=== PATIENT | female | born 2005 | race Caucasian/White ===

== ENCOUNTER 2025-03-28 05:58 | Day surgery (SDC) | payer OTHER, SELFPAY ==
[2025-03-28] VITALS (9 sets, daily range): BP systolic 104–131; BP diastolic 59–87; PULSE 89–111; RESP 16; TEMP 36.2–36.6; O2SAT 94–100; BMI 21.7
--- OUTSIDE RECORDS SUMMARY | 2025-03-28 06:09 | XMS RPT_ITS | CCD ---
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 Role Phone COURTNEY MORENO Unavailable Unavailable REFERRED, SELF Unavailable Unavailable LISHNEVSKI, CYNDIE Unavailable Unavailable COURTNEY MORENO Unavailable Unavailable COURTNEY MORENO Unavailable Unavailable LISHNEVSKI, CYNDIE Unavailable Unavailable [facility] Unavailable Unavailable LISHNEVSKI, CYNDIE Unavailable Unavailable COURTNEY MORENO Unavailable Unavailable Lishnevski, Cyndie Primary Care Provider [phone] Lishnsheai, Cyndie Unavailable Unavailable Unavailable Salas Zhaonah Primary Care Provider Pavel DO Nidia L Primary Care Provider Pavel Salas VALENZUELAnah Thuy Primary Care Provider Nidia Zhao Primary Care Provider Cyndie Mcdonough MD Primary Care Provider SELF Referring Unavailable PAVEL, NIDIA L Primary Care Unavailable PAVEL, NIDIA L Primary Care Unavailable ARTEMIO CHANDLER Attending Unavailable PAVEL, NIDIA L Primary Care Unavailable PAVEL, NIDIA L Referring Unavailable PAVEL, NIDIA L Primary Care Unavailable PAVEL, NIDIA L Referring Unavailable PAVEL, NIDIA L Primary Care Unavailable PAVEL, NIDIA L Referring Unavailable PAVEL, NIDIA L Primary Care Unavailable PAVEL, NIDIA L Primary Care Unavailable PAVEL, NIDIA Attending Unavailable PAVEL, NIDIA Referring Unavailable PAVEL, NIDIA Primary Care Unavailable PAVEL, NIDIA Primary Care Unavailable LILIA GARRETT Attending Unavailable PAVEL, NIDIA Referring Unavailable PAVEL, NIDIA Primary Care Unavailable INDIRA DELEON Attending Unavailable [facility] Primary Care Unavailable JAKE CLAYTON Attending Unavailable JAKE CLAYTON Referring Unavailable [facility] Care Unavailable Cyndie Mcdonough MD Primary Care Provider Nakita Vela Attending Physician [phone] Pavel VALENZUELA, Dr. Nidia Crowley Primary Care Physic lavon Pavel VALENZUELA, Dr. Nidia Crowley Referring Provider [facility] Primary Care Unavailarnoldo e Rafael Viveros Attending Unavailable [facility]erring Unavailabl e Pavel, [facility] Care Unavailabl e Nakita Frazier Attending Unavailable Allergies Allergy Classification Reported Allergen(s) Allergy Type Date of Onset Reaction(s) Facility Penicillins (antibiotic) (2 sources) Penicillins Drug Allergy 01-04-20 23 [facility] (18 sources) Penicillins; Translations: [PENICILLINS] Propensity to adverse reactions 01-04-20 23 GI Upset [facility] (4 sources) Penicillins Drug Intolerance 01-04-20 23 GI Upset [facility] (6 sources) Brompheniramine / Pseudoephedrine; Translations: [BROMPHENIRAMINE-P SEUDOEPHEDRIN] Drug Allergy 06-04-20 24 Shortness of breath [facility] Work Phone: (11 sources) Nirmatrelvir-Riton avir; Translations: [NIRMATRELVIR-TYRON NAVIR] Drug Allergy 06-04-20 24 Hives, Anaphylaxis, Swelling [facility] Work Phone: (4 sources) Penicillins Drug Intolerance 01-04-20 23 GI Upset [facility] (1 source) Brompheniramine Drug Allergy 02-22-20 25 Other [facility] Comment on above: Shaking (1 source) cefdinir Drug Allergy 02-22-20 25 Abd cramps/diarrhe a [facility] (1 source) Doxycycline Drug Allergy 02-22-20 25 Abd cramps/diarrhe a [facility] (1 source) Nortriptyline Drug Allergy 02-22-20 Other [facility] (1 source) Penicillins Propensity to adverse reactions 02-22-20 Abd cramps/diarrhe a [facility] (1 source) Ritonavir Drug Allergy 02-22-20 Other [facility] (2 sources) nirmatrelvir; Translations: [nirmatrelvir] Allergy to substance 02-22-20 Other [facility] (1 source) Brompheniramine Drug Allergy 03-27-20 [facility] Repository (1 source) cefdinir Drug Allergy 02-22-20 [facility] (1 source) Doxycycline Drug Allergy 02-22-20 [facility] (1 source) Nortriptyline Drug Allergy 02-22-20 [facility] (1 source) Penicillins Drug allergy (disorder) 03-27-20 [facility] Rep[facility] (1 source) Ritonavir Drug Allergy 03-27-20 [facility] Repository Medications Current Medications Medication Drug Class(es) Dates Sig (Normalized) Sig (Original) [id number] 200 actuat albuterol 0.09 mg/actuat metered dose inhaler (20 sources) beta2-Adrenergic Agonist Start: 02-17-2025 Start: 05-12-2022 End: 09-03-2024 take 2 puff(s) by inhalation every four hours as needed albuterol HFA (PROVENTIL HFA, VENTOLIN HFA) 90 mcg/actuation inhaler Indications: SOB (shortness of breath) Inhale 2 Puffs as instructed every 4 hours as needed. 8 g 09/03/2024 Active Start: 05-12-2022 take 1-2 puff(s) by mouth every six hours albuterol 108 (90 Base) MCG/ACT inhaler inhale 1 to 2 puffs by mouth and INTO THE LUNGS every 6 hours if ... (REFER TO PRESCRIPTION NOTES). 05/12/2022 Active amitriptyline hydrochloride 50 mg oral tablet (20 sources) Tricyclic Antidepressant Start: 04-25-2022 take 1 tablet by mouth once daily amitriptyline (Elavil) 50 MG tablet Take 50 mg by mouth Nightly. 04/25/2022 Active Start: 01-15-2022 End: 06-21-2022 take 1 tablet by mouth once daily amitriptyline (Elavil) 25 MG tablet Take 25 mg by mouth Nightly. 0 01/15/2022 06/21/2022 Discontinued (Dose adjustment) amoxicillin 875 mg / clavulanate 125 mg oral tablet (2 sources) Penicillin-class Antibacterial Start: 02-04-2025 End: 02-11-2025 take 1 tablet by mouth twice daily amoxicillin-clavulanate (Augmentin) 875-125 mg tablet Indications: Acute non-recurrent pansinusitis Take 1 tablet (875 mg of amoxicillin) by mouth 2 times a day for 7 days. 14 tablet 02/04/2025 02/11/2025 Active Start: 06-09-2019 take 1 tablet by neptali th twice daily after mealtime Amoxicillin-Pot Clavulanate 875-125 MG Oral Tablet TAKE 1 TABLET TWICE DAILY AFTER MEALS Quantity: 20 Refills: 0 Ordered: 09-Jun-2019 Morgan Lee MD Start : 09-Jun-2019 Active azelastine hydrochloride 0.137 mg/actuat metered dose nasal spray (4 sources) Histamine-1 Receptor Antagonist Start: 09-23-2024 End: 09-23-2025 take 2 spray(s) nasal route twice daily azelastine (Astelin) 0.1 % nasal spray Administer 2 sprays into each nostril 2 times daily. Use in each nostril as directed 30 mL 11 09/23/2024 09/23/2025 Active azithromycin 250 mg oral tablet (4 sources) Macrolide Antimicrobial Start: 06-04-2024 End: 06-04-2024 azithromycin (Zithromax) 250 mg tablet Indications: Mild intermittent asthma with exacerbation ([facility]) , Bronchitis Take 2 tabs (500 mg) by mouth today, than 1 daily for 4 days. 6 tablet 06/04/2024 Active benzonatate 200 mg oral capsule (2 sources) Non-narcotic Antitussive Start: 06-04-2024 End: 06-11-2024 take 1 capsule by mouth three times daily as needed for cough benzonatate (Tessalon) 200 mg capsule Indications: Bronchitis Take 1 capsule (200 mg) by mouth 3 times a day as needed for cough for up to 7 days. Do not crush or chew. 21 capsule 06/04/2024 06/11/2024 Active cephalexin 250 mg oral capsule (2 sources) Cephalosporin Antibacterial Start: 02-21-2025 take 1 capsule by mouth twice daily Start: 02-17-2025 End: 02-22-2025 take 1 capsule by mouth twice daily cephalexin (Keflex) 500 mg capsule Indications: Paronychia of right little finger Take 1 capsule (500 mg) by mouth 2 times a day for 5 days. 10 capsule 02/17/2025 02/22/2025 dicyclomine hydrochloride 10 mg oral capsule (12 sources) Anticholinergic Start: 02-17-2025 take 1 capsule by mouth three times daily take 2 capsules by m outh three times daily dicyclomine (Bentyl) 10 mg capsule Take 2 capsules by mouth 3 times a day. Active take 1 capsule by mouth four alonso es daily dicyclomine (Bentyl) 10 MG capsule Take 10 mg by mouth 4 times daily. Active 21 day ethinyl estradiol 0.0 32608 mg/hr / etonogestrel 0.005 mg/hr vaginal system (20 sources) Progestin, Estrogen Start: 02-17-2025 Start: 11-15-2024 End: 12-16-2024 etonogestrel-ethinyl estradi ol (EluRyng) 0.12-0.015 MG/24HR vaginal ring INSERT ONE RING VAGINALLY AND LEAVE IN PLACE FOR 3 WEEKS, IMMEDIATELY REPLACE WITH ANOTHER RING TO SKIP PERIODS 3 Ring 5 12/16/2024 Active Start: 11-08-2023 EluRyng 0.12-0 .015 mg/24 hr vaginal ring INSERT ONE RING VAGINALLY AND LEAVE IN PLACE FOR 3 WEEKS, THEN REMOVE FOR ONE WEEK 11/08/2023 Active Start: 09-12-2023 End: 11-15-2024 etonogestrel-ethinyl estradi ol (EnilloRing) 0.12-0.015 MG/24HR vaginal ring Insert vaginally and leave in place for 3 consecutive weeks, then remove for 1 week. 3 Ring 4 11/08/2023 11/15/2024 Discontinued Start: 09-09-2022 End: 09-12-2023 etonogestrel-ethinyl estradi ol (NuvaRing) 0.12-0.015 MG/24HR vaginal ring Indications: control counseling Insert 1 Ring into the vagina See administration instructions. Insert vaginally and leave in place for 3 consecutive weeks, then remove for 1 week. 3 Ring 4 09/09/2022 09/12/2023 Discontinued Ethinyl Estradiol / Ferrous fumarate / Norethindrone (1 source) Estrogen Start: 11-04-2019 take 1 tablet by mouth once daily LO LOESTRIN FE 1 MG-10 MCG / 10 MCG tablet take 1 tablet by mouth once daily 28 tablet 3 11/04/2019 Active famotidine 40 mg oral tablet (20 sources) Histamine-2 Receptor Antagonist Start: 04-16-2021 End: 09-03-2024 famotidine (Pepcid) 40 MG tablet Take 1 tablet by mouth as needed. 01/15/2022 Active Comment on above: Take 40 mg by mouth daily at bedtime. fluticasone propionate 0.05 mg/actuat metered dose nasal spray (4 sources) Corticosteroid Start: 09-23-2024 End: 09-23-2025 take 2 spray(s) nasal route once daily fluticasone (Flonase) 50 MCG/ACT nasal spray Administer 2 sprays into each nostril daily. Shake gently. Before first use, prime pump. After use, clean tip and replace cap. 16 g 11 09/23/2024 09/23/2025 Active hydrOXYzine hydrochloride 25 mg oral tablet (8 sources) Antihistamine Start: 07-05-2024 hydrOXYzine HCl (ATARAX) 25 mg tablet 07/05/2024 Active hydrOXYzine HCl (Atarax) 10 MG tablet Take by mouth. Active Inulin (1 source) Start: 02-17-2025 lidocaine 0.05 mg/mg topical ointment (20 sources) Antiarrhythmic, Amide Local Anesthetic Start: 06-21-2022 End: 01-03-2023 lidocaine (Xylocaine) 5 % ointment Indications: Vulvodynia Apply to just outside vaginal opening at bedtime x 6 weeks 30 g 01/03/2023 Active montelukast 10 mg oral tablet (20 sources) Leukotriene Receptor Antagonist Start: 02-04-2020 End: 09-03-2024 take 1 tablet by mouth every twenty-four hours as needed montelukast (Singulair) 10 MG tablet Take 10 mg by mouth Daily as needed. 01/08/2022 Active Start: 11-13-2019 take 1 tablet by neptali th once daily montelukast (SINGULAIR) 10 MG tablet Take 1 tablet by mouth daily 30 tablet 3 11/13/2019 Active Comment on above: Take 10 mg by mouth once daily. mupirocin 0.02 mg/mg topical ointment (1 source) RNA Synthetase Inhibitor Antibacterial Start: 02-18-20 End: 02-28-20 mupirocin (Bactroban) 2 % ointment Indications: Paronychia of right little finger Apply topically 3 times a day for 10 days. 22 g 02/17/2025 02/27/2025 Active naproxen 500 mg oral tablet (9 sources) Nonsteroidal Anti-inflammatory Drug take 1 tablet by mouth in the morning naproxen (Naprosyn) 500 MG tablet Take 500 mg by mouth in the morning and 500 mg in the evening. Take with meals. Active omeprazole 20 mg delayed release oral capsule (8 sources) Proton Pump Inhibitor Start: 09-03-19 take 1 capsule by mouth once daily at breakfast omeprazole (PriLOSEC) [address] capsule TAKE 1 CAPSULE BY MOUTH 1/2 TO 1 HOUR BEFORE MORNING MEAL ONCE A DAY 01/15/2025 Active pantoprazole 40 mg delayed release oral tablet (1 source) Proton Pump Inhibitor Start: 02-22-20 take 1 tablet by mouth once daily predniSONE 20 mg oral tablet (1 source) Start: 09-04-19 End: 09-09-19 take 1 tablet by mouth once daily predniSONE (DELTASONE) 20 mg tablet Indications: SOB (shortness of breath) Take 1 tablet by mouth once daily for 5 days. 5 tablet 09/03/2024 09/08/2024 Active Risankizumab-Rzaa (1 source) Start: 02-18-20 Risankizumab-rzaa (Skyrizi) 150 MG/ML solution prefilled syringe (4 sources) Risankizumab-rza a (Skyrizi) 150 MG/ML solution prefilled syringe Inject under the skin. Active SKYRIZI 150 mg/mL injection (4 sources) SKYRIZI 150 mg/m L injection Active Skyrizi 150 mg/mL pen injector pen (3 sources) Skyrizi 150 mg/m L pen injector pen Active tiZANidine 2 mg oral capsule (20 sources) Central alpha-2 Adrenergic Agonist Start: 02-18-20 take 1 capsule by mouth every eight hours as needed Start: 05-31-2022 take 1 tablet by neptali th every eight hours as needed for muscle spasms tiZANidine (Zanaflex) 2 mg tablet TAKE 1 TABLET ORALLY EVERY 8 HOURS NEEDED FOR MUSCLE SPASM 05/14/2024 Active Completed/Discontinued Medications Medication Drug Class(es) Dates Sig (Normalized) Sig (Original) brompheniramine maleate 0.4 mg/ml / dextromethorphan hydrobromide 2 mg/ml / pseudoephedrine hydrochloride 6 mg/ml oral solution (1 source) alpha-Adrenergic Agonist, Uncompetitive M-keajvu-J-asparta te Receptor Antagonist, Sigma-1 Agonist Start: 09-03-2024 End: 09-03-2024 take 10 mL by mouth four times daily as needed Brompheniramine-Pse udoeph-DM (BROMFED DM) 2-30-10 mg/5 mL syrup Indications: Viral upper respiratory tract infection with cough Take 10 mL by mouth four times a day as needed. 118 mL 09/03/2024 09/03/2024 Discontinued escitalopram 10 mg oral tablet (7 sources) Serotonin Reuptake Inhibitor Start: 06-09-2021 End: 09-03-2024 take 1 tablet by mouth once daily escitalopram oxalate (LEXAPRO) 10 mg tablet Take 10 mg by mouth once daily. 06/09/2021 09/03/2024 Discontinued Comment on above: Take 10 mg by mouth once daily. estradiol, bulk, powder (3 sources) Start: 09-06-2022 End: 08-14-2023 estradiol, bulk, powder Indications: Vulvodynia Estradiol 0.01% and testosterone 0.1% in methylcellulose base. Apply pea size amount to vestibule BID x 12 weeks 1 g 2 09/06/2022 08/14/2023 Discontinued (Therapy completed) Start: 09-06-2022 estradiol, bul k, powder Indications: Vulvodynia Estradiol 0.01% and testosterone 0.1% in methylcellulose base. Apply pea size amount to vestibule BID x 12 weeks 1 g 2 09/06/2022 Active Ethinyl Estradiol / Levonorgestrel (13 sources) Progestin, Estrogen, Progestin-containing Intrauterine Device Start: 06-30-2021 End: 09-03-2024 take 1 tablet by mouth once daily Levonorgestrel-Ethinyl Estrad (LESSINA) 0.1mg - 20mcg per tablet Indications: Dysmenorrhea Take 1 tablet by mouth once daily. 84 tablet 4 06/30/2021 09/03/2024 Discontinued Start: 06-30-2021 End: 08-14-2023 take 0.1-20 tablets by mouth in the morning levonorgestrel-ethinyl estradiol (Aviane , Alesse, Lessina) 0.1-20 MG-MCG tablet Indications: control counseling Take 1 tablet by mouth in the morning. 28 tablet 12 07/01/2022 08/14/2023 Discontinued (Therapy completed) Start: 06-30-2021 take 1 tablet by neptali th once daily Levonorgestrel-Ethinyl Estrad (LESSINA) 0.1mg - 20mcg per tablet Indications: Dysmenorrhea Take 1 tablet by mouth once daily. 84 tablet 4 06/30/2021 Active Comment on above: Take 1 tablet by neptali th once daily. FLUoxetine 10 mg oral tablet (1 source) Serotonin Reuptake Inhibitor Start: 01-15-2022 End: 06-21-2022 take 1 tablet by mouth once daily FLUoxetine (PROzac) 10 MG tablet Take 10 mg by mouth daily. 0 01/15/2022 06/21/2022 Discontinued (Therapy completed) Problems Active Problems Problem Classification Problem Date Documented Da te Episodic/Chronic Abdominal pain (4 sources) Epigastric pain; Translations: [Right lower quadrant pain] Onset: 4 02-21-2025 Episodic Asthma (1 source) Exacerbation of intermittent asthma; Translations: [Mild intermittent asthma with (acute) exacerbation] 06-04-2024 Chronic Chronic obstructive pulmonary disease and bronchiectasis (1 source) Bronchitis; Translations: [Bronchitis, not specified as acute or chronic] 06-04-2024 Episodic Contraceptive and procreative management (4 sources) Patient encounter status; Translations: [Encounter for other general counseling and advice on contraception] 09-11-2023 Episodic Disorders of teeth and jaw (1 source) Temporomandibular joint disorder; Translations: [Unspecified temporomandibular joint disorder, unspecified side] 09-23-2024 Episodic Esophageal disorders (3 sources) Laryngopharyngeal reflux; Translations: [Gastro-esophageal reflux disease without esophagitis] 09-23-2024 Chronic Genitourinary symptoms and ill-defined conditions (3 sources) Dysuria; Translations: [Dysuria] 08-14-2023 Episodic Immunizations and screening for infectious disease (2 sources) At risk of sexually transmitted infection ; Translations: [Contact with and (suspected) exposure to infections with a predominantly sexual mode of transmission] 12-16-2024 Episodic Malaise and fatigue (1 source) Postviral fatigue syndrome; Translations: [Postviral fatigue syndrome] 02-04-2025 Chronic Other connective tissue disease (4 sources) Pelvic floor dysfunction; Translations: [Other specified disorders of muscle] 01-03-2023 Episodic Other endocrine disorders (1 source) Rathke's pouch cyst; Translations: [Other disorders of pituitary gland] 07-30-2024 Chronic Other endocrine disorders (2 sources) Other disorders of pituitary gland; Translations: [Other disorders of pituitary gland (HCC)] Onset: Chronic Other female genital disorders (3 sources) Vulvodynia; Translations: [Vulvodynia, unspecified] 01-03-2023 Chronic Other female genital disorders (2 sources) Pain in female genitalia on intercourse; Translations: [Unspecified dyspareunia] 01-03-2023 Chronic Other female genital disorders (1 source) Vaginal odor; Translations: [Other specified noninflammatory disorders of vagina] 07-08-2024 Episodic Other gastrointestinal disorders (2 sources) Irritable bowel syndrome with diarrhea; Translations: [Irritable bowel syndrome with diarrhea] 02-21-2025 Chronic Other inflammatory condition of skin (3 sources) Psoriasis vulgaris; Translations: [Psoriasis vulgaris] Onset: 5 12-23-2023 Chronic Other inflammatory condition of skin (1 source) Psoriasis vulgaris; Translations: [Psoriasis vulgaris] Onset: Chronic Other lower respiratory disease (1 source) Dyspnea; Translations: [Shortness of breath] 09-03-2024 Episodic Other screening for suspected conditions (not mental disorders or infectious disease) (3 sources) Cancer cervix screening status; Translations: [Encounter for screening for malignant neoplasm of cervix] Onset: 5 12-16-2024 Episodic Other upper respiratory disease (2 sources) Allergic rhinitis; Translations: [Allergic rhinitis, unspecified] 09-23-2024 Chronic Other upper respiratory disease (1 source) Deviated nasal septum; Translations: [Deviated nasal septum] 09-23-2024 Episodic Other upper respiratory disease (1 source) Hypertrophy of nasal turbinates; Translations: [Hypertrophy of nasal turbinates] 09-23-2024 Episodic Other upper respiratory disease (1 source) Congestion of nasal sinus; Translations: [Nasal congestion] 02-04-2025 Episodic Other upper respiratory infections (4 sources) Sore throat symptom; Translations: [Acute pharyngitis] 09-03-2024 Episodic Otitis media and related conditions (3 sources) Acute left otitis media; Translations: [Unspecified otitis media] 09-23-2024 Episodic Residual codes; unclassified (1 source) Viral syndrome; Translations: [Other general symptoms and signs] 06-04-2024 Episodic Skin and subcutaneous tissue infections (1 source) Onychia of finger; Translations: [Cellulitis of right finger] 02-17-2025 Episodic Unclassified (1 source) [place] Onset: 5 Unclassified (2 sources) New Patient; Translations: [New Patient] Onset: 5 Urinary tract infections (1 source) Chronic interstitial cystitis; Translations: [Interstitial cystitis (chronic) without hematuria] 08-14-2023 Chronic Urinary tract infections (1 source) Urinary tract infectious disease Onset: 5 Episodic Viral infection (1 source) Disease caused by 2019-nCoV; Translations: [COVID-19] 02-04-2025 Episodic Past or Other Problems Problem Classification Problem Date Documented Da te Episodic/Chronic Inflammatory diseases of female pelvic organs (1 source) Chronic vaginitis; Translations: [Subacute and chronic vaginitis] Episodic Other acquired deformities (2 sources) Spondylolysis, lumbosacral region; Translations: [Acquired spondylolisthesis] Onset: 11-10-2023 11-10-2023 Episodic Other female genital disorders (1 source) Vaginal discharge; Translations: [Other specified noninflammatory disorders of vagina] Episodic Other gastrointestinal disorders (1 source) Diarrhea, unspecified; Translations: [Diarrhea, unspecified type] Onset: 03-11-2024 Episodic Other nervous system disorders (1 source) Tremor, unspecified; Translations: [Tremor, unspecified] Onset: 06-30-2024 Episodic Ovarian cyst (2 sources) Cyst of right ovary; Translations: [Unspecified ovarian cyst, right side] Onset: 03-11-2024 11-08-2023 Episodic Results Test Name Value Interpretation Reference Range Facility Gastroenterology Visit Repor ton 02-21-2025 Gastroenterology Visit Report [facility] [address] [place] [address] OFFICE VISIT Date of Service: 02/21/25 MR#: [id number] Acct: [id number] Name: LUL SANTIAGO Rep #: [id number] : 2005 Provider: CODI Bartlett Age/Sex: 19/F Location: [facility] [place].[facility] Status: Signed Intake Intake Visit Reasons: Epigastric pain/Acid Refllux Chief Complaint: GERD Filter Helper Required: No Accompanied by: Self Is patient in pain?: No Allergies nirmatrelvir (From Paxlovid) Allergy (Intermediate, Verified 02/21/25 14:19) Other ritonavir (From Paxlovid) Allergy (Intermediate, Verified 02/21/25 14:19) Other brompheniramine Adverse Reaction (Mild, Verified 02/21/25 14:19) Other cefdinir Adverse Reaction (Mild, Verified 02/21/25 14:19) Abd cramps/diarrhea doxycycline Adverse Reaction (Mild, Verified 02/21/25 14:19) Abd cramps/diarrhea nortriptyline Adverse Reaction (Mild, Verified 02/21/25 14:19) Other Penicillins (PCN) Adverse Reaction (Mild, Verified 02/21/25 14:19) Abd cramps/diarrhea Medications ???Medication ???Instructions ???Recorded ???Confirmed ???Type albuterol sulfate 90 mcg/actuation 2 puff inhalation Q4-6H PRN 02/0302/17/25 History aerosol inhaler dicyclomine 10 mg capsule 10 mg PO TID 02/17/25 02/17/25 His tory etonogestrel 0.12 mg-ethinyl 1 vag ring vaginal Q4W 02/17/25 History estradiol 0.015 mg/24 hr vaginal ring (NuvaRing) inulin 1.7 gram chewable tablet g PO 02/17/25 02/17/25 History (Fiber Gummies) risankizumab-rzaa 150 mg/mL 150 mg subcut Q12W 02/17/25 History subcutaneous pen injector (Skyrizi) tizanidine 2 mg capsule 2 mg PO Q8H PRN 02/17/25 02/17/25 History cephalexin 250 mg capsule 250 mg PO BID 02/21/25 02/21/25 Hi story pantoprazole 40 mg tablet,delayed 40 mg PO QDAY #30 tabs 02/21/25 0 02/21/25 Rx release PFSH Medical History (Updated 02/21/25 @ 14:17 by Brandi Oliveira) Anxiety Psoriasis Vitamin deficiency Irritable bowel syndrome (IBS) Hormone deficiency Hives Hx of migraine headaches Gastrointestinal problem UTI (urinary tract infection) Bone fracture Back problem Arthritis Seasonal allergies Abnormal pituitary luteinizing hormone (LH) Irritable bowel syndrome with diarrhea Asthma exacerbation Migraines GERD (gastroesophageal reflux disease) Epigastric pain Surgical History (Updated 02/21/25 @ 14:16 by Brandi Oliveira) [place] teeth extracted Family History (Updated 02/21/25 @ 13:55 by Brandi Oliveira) Father Hyperlipidemia Mother Depression Aunt Cancer of kidney Other Colon cancer Social History (Updated 02/21/25 @ 14:18 by Brandi Oliveira) Smoking Status: Never smoker alcohol intake: current details: 1-2 days a week substance use type: does not use what type of physical activity do you participate in: walking HPI HPI Chief Complaint: GERD Details: LUL SANTIAGO, is a 19 F who presents to the office today for establishment. Patient with a long history of GERD type symptoms. Patient previously seeing her PCP for management however symptoms have become refractory and she was referred to GI office. In the past she has taken famotidine just as needed but this eventually stopped working. She was then put on omeprazole which she felt made her symptoms worse so she discontinued it. She has heartburn on a consistent basis. She has nausea but does not vomit. She has noticed that greasy and spicy foods can cause worse symptoms. Patient also feels difficulty swallowing with certain food textures like peanut butter. She will have to drink a lot of water to get the food down. She has some intermittent right upper quadrant abdominal pain however she had a right upper quadrant ultrasound which was normal. She has a history of IBS and will have constipation on occasion. At 1 point she was having blood in her stool stool fit test was ordered which was negative. She denies any diarrhea, constipation or blood in her stool at this time. ROS Const Constitutional: Positive for fatigue and headache(s); No fever(s) or weight change ENT ENT: Positive for headache(s) and difficulty swallowing Gastro GI: Positive for abdominal pain, bloating, heartburn, difficulty swallowing and nausea/dyspepsia; No belching, change in bowel habits, change in stool character, coffee ground emesis, constipation, cramping, diarrhea, feeling full early, excessive flatus, incontinent of stools, Vomiting blood/hematemesis, Blood in stool, loose stools, Black,tarry stools, pain with swallowing, vomiting or other Musc Musculoskeletal: Positive for joint pain, back pain, muscle cramps, stiffness and Arthritis Skin Skin: No yellowing of the eye or itchy eyes Neuro Neurology: Positive for headache(s) and tremor(s) Psych Psychiatric: Positive for anxiety and No (more content not included)... 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 pyogenes DNA CONCEPCION+probe Ql (Throat) Negative Negative [facility] Work Phone: [facility] Work Phone: SARS-CoV-2 (COVID-19) Ag IA. rapid Ql (Resp)on 02-04-2025 Interpretation and review of laboratory results Abnormal [facility] Work Phone: [facility] Work Phone: Office Visiton 12-16-2024 Follow-up visit [id number] Ramone Santiago 2005 F Date Provider Department Center 12/16/2024 [id number] DELEON [facility] Family History Problem Relation Age of Onset Kidney cancer Father's Sister Cancer Father's Sister High Blood Pressure Paternal Grandmother Heart disease Paternal Grandmother Anesthesia problems Mother Family Status - Relation Status Age at Father's Sister Alive Paternal Grandmother Mother Alive Sister Alive Father Alive Level of Service:51736 [place] INITIAL PREVENTIVE MEDICINE NEW PT AGE 18-39YRS Reason for Visit and Comments: Gynecologic Exam [50] - Annual exam Normal [facility] Progress Noteon 12-16-2024 Progress Note Lul Sanitago 12/16/2024 19 y.o. Primary Care Physician: Nidia Zhao Chief Complaint Patient presents with Gynecologic Exam Annual exam HPI : Lul Santiago is a 19 y.o. female here for annual exam. Gynecologic History: Patient's last menstrual period was 12/09/2024 (exact date). Menses: regular Dysmenorrhea: yes, improved with nuvaring Sexually Active: yes STD History: no, desires screening Contraception: NuvaRing vaginal inserts Preventative Health Testing: Last Pap Smear: n/a Abnormal Pap Smear History: n/a Family history of breast, ovarian, uterine, colon cancer: no OB History Para Term AB Living 0 0 0 0 0 0 SAB IAB Ectopic Multiple Live Births 0 0 0 0 0 Past Medical History: Diagnosis Date Allergic Allergic rhinitis Anxiety Asthma Fracture lumbar vertebra-closed (HCC) Fracture of distal phalanx of finger, closed Pinky finger Fracture of lower leg, closed x2 Interstitial cystitis Migraine Vitamin D deficiency Past Surgical History: Procedure Laterality Date WISDOM TOOTH EXTRACTION Bilateral Family History Problem Relation Name Age of Onset Kidney cancer Father's Sister Kidney Cancer Cancer Father's Sister Kidney Cancer High Blood Pressure Paternal Grandmother Heart disease Paternal Grandmother Anesthesia problems Mother Nausea Social History Socioeconomic History Marital status: Single Spouse name: Not on file Number of children: Not on file Years of education: Not on file Highest education level: Not on file Occupational History Not on file Tobacco Use Smoking status: Never Smokeless tobacco: Never Substance and Sexual Activity Alcohol use: No Drug use: No Sexual activity: Yes Partners: Male control/protection: Ring, Other Comment: Condom Other Topics Concern Not on file Social History Narrative Not on file Social Drivers of Health Financial Resource Strain: Not on file Food Insecurity: Not on file Transportation Needs: Not on file Physical Activity: Not on file Stress: Not on file Social Connections: Not on file Intimate Partner Violence: Not on file Housing Stability: Not on file MEDICATIONS: Current Outpatient Medications Medication Sig Dispense Refill albuterol 108 (90 Base) MCG/ACT inhaler inhale 1 to 2 puffs by mouth and INTO THE LUNGS every 6 hours if ... (REFER TO PRESCRIPTION NOTES). dicyclomine (Bentyl) 10 MG capsule Take 10 mg by mouth 4 times daily. fluticasone (Flonase) 50 MCG/ACT nasal spray Administer 2 sprays into each nostril daily. Shake gently. Before first use, prime pump. After use, clean tip and replace cap. 16 g 11 hydrOXYzine HCl (Atarax) 10 MG tablet Take by mouth. omeprazole (PriLOSEC) [address] capsule Take 20 mg by mouth every morning (before breakfast). Do not crush or chew. Risankizumab-rzaa (Skyrizi) 150 MG/ML solution prefilled syringe Inject under the skin. tiZANidine (Zanaflex) 2 MG tablet Take 1 tablet by mouth as needed. amitriptyline (Elavil) 50 MG tablet Take 50 mg by mouth Nightly. (Patient not taking: Reported on 09/23/2024) azelastine (Astelin) 0.1 % nasal spray Administer 2 sprays into each nostril 2 times daily. Use in each nostril as directed 30 mL 11 etonogestrel-ethinyl estradiol (EluRyng) 0.12-0.015 MG/24HR vaginal ring INSERT ONE RING VAGINALLY AND LEAVE IN PLACE FOR 3 WEEKS, IMMEDIATELY REPLACE WITH ANOTHER RING TO SKIP PERIODS 3 Ring 5 famotidine (Pepcid) 40 MG tablet Take 1 tablet by mouth as needed. (Patient not taking: Reported on 09/23/2024) lidocaine (Xylocaine) 5 % ointment Apply to just outside vaginal opening at bedtime x 6 weeks (Patient not taking: Reported on 09/23/2024) 30 g 0 montelukast (Singulair) 10 MG tablet Take 10 mg by mouth Daily as needed. (Patient not taking: Reported on 09/23/2024) naproxen (Naprosyn) 500 MG tablet Take 500 mg by mouth in the morning and 500 mg in the evening. Take with meals. (Patient not taking: Reported on 09/23/2024) No current facility-administered medications for this visit. ALLERGIES: Allergies as of 12/16/2024 - Reviewed 12/16/2024 Allergen Reaction Noted Paxlovid [nirmatrelvir-ritonavir ] Anaphylaxis 09/23/2024 Pcn [penicillins] 01/03/2023 REVIEW OF SYSTEMS: CONSTIUTIONAL: No weight change or fatigue CV: No Chest Pain with Exertion, Palpitations, Syncope, Edema, Arrhythmia RESPIRATORY: No SOB or Cough, BREAST: No breast abnormalities or lumps GI: No Indigestion, Heartburn, Nausea, vomiting, Diarrhea, Constipation,Bloating or Bowel Changes; No Bloody Stools or melena : No Dysuria, Hematuria or Nocturia. No Urinary Incontinence or Vaginal Discharge,vaginal bleeding, or dysparuenia. NEURO: No Migraines,, Seizure Hx, or Limb Weakness DERM: No Rash, Itching, Mole Changes or Cancer PSYCH: No Depression, Homicidal thoughts,suicidal thoughts, or anxiety MUSCULOSKELETAL: (more content not included)... Normal [facility] Progress Note Cage Cashier was offere d to the patient for exam. 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 Normal [facility] US ABDOMEN LTDon 11-15-2024 US ABDOMEN LTD * * *Final Report* * * DATE OF EXAM: Nov 15 2024 7:15AM MICKY 1064 - US ABDOMEN LTD / PROCEDURE REASON: r10.13 epigastric pain * * * * Physician Interpretation * * * * EXAMINATION: RIGHT UPPER QUADRANT ULTRASOUND CLINICAL HISTORY: r10.13 epigastric pain TECHNIQUE: Sonography of the right upper quadrant was performed. Images were obtained and stored in a permanent archive. MQ: [id number] COMPARISON: 03/11/2024 enhanced A/P CT RESULT: Pancreas: Normal sonographic appearance. Portions obscured: tail Liver: Echotexture: Normal, homogeneous. Echogenicity: Normal Surface contour: Smooth Lesions: None. Other: Main portal vein is patent and demonstrates appropriate hepatopedal blood flow. Biliary: No intrahepatic biliary duct dilation. CBD: 0.3 at the hilum. Gallbladder: Normal caliber -Contents: No cholelithiasis -Wall: Normal -Other: No pericholecystic fluid. No sonographic Moore's sign. Right Kidney: No hydronephrosis. Ascites: None. IMPRESSION: Normal sonographic appearance of the right upper quadrant. Safety Physician: DEBORAH Transcribe Date/Time: Nov 18 2024 10:14A Dictated by : SHILOH GARVEY MD This examination was interpreted and the report reviewed and electronically signed by: SHILOH GARVEY MD on Nov 18 2024 10:16AM EST [id number] [facility] Office Visiton 09-23-2024 Follow-up visit [id number] Ramone Santiago 2005 F Date Provider Department Center 09/23/2024 LILIA MOLINA [facility] None Family History Problem Relation Age of Onset Kidney cancer Father's Sister Cancer Father's Sister High Blood Pressure Paternal Grandmother Heart disease Paternal Grandmother Anesthesia problems Mother Family Status - Relation Status Age at Father's Sister Alive Paternal Grandmother Mother Alive Sister Alive Father Alive Level of Service:50205 [place] OFFICE/OUTPATIENT NEW MODERATE MDM 45 MINUTES Reason for Visit and Comments: New Patient [542] - New patient for allergies, stuffy sinus with difficulty breathing at night and can not use sedating antihistamine with work, muffled right hearing with fluid per PCP, TMJ left side jaw and 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 eustachian tube dysfunction -I counseled the patient on findings we will start Flonase Astelin auto Valsalva to help with her eustachian tube dysfunction allergic rhinitis will also add the patient for allergy testing she was interested in this -In regards to her LPR she is scheduled to see with GI continue omeprazole therapy She has some concerns regarding her hearing as well as possible further evaluation eustachian tube dysfunction will schedule 4-week follow-up with our audiology team and then follow-up with me Otolaryngology Head and Neck Surgery Clinic Note HPI: Lul Santiago is a 19 y.o. yo female who presents to clinic today for evaluation of several ear nose and throat complaints. Patient states has been ongoing for quite some time she states that she has nasal congestion as well as facial pain and pressure in fullness in the right ear. She states that she may have allergies she has been off Flonase intermittently without any benefit no prior history of any nasal related surgery she gets about 1 sinus infection per year she denies any trauma to the nose she has tried [id number] allergy medication but unable to tolerate it she is battling really bad acid reflux currently she has been switching her omeprazole therapy from famotidine and has not quite been improving as she does note globus sensation frequent throat clearing and postnasal drip. She also states that she had times has been dealing with TMJ related issues been using a mouthguard but it is not staying in so she is not adequately feels like she is treating this as well mostly that bothers the left jaw her right ear fullness is typically restrictive the right no other concerns at this time no prior history of any head neck surgery. PMH: Past Medical History: Diagnosis Date Allergic Allergic rhinitis Anxiety Asthma Fracture lumbar vertebra-closed (HCC) Fracture of distal phalanx of finger, closed Pinky finger Fracture of lower leg, closed x2 Interstitial cystitis Migraine Vitamin D deficiency Allergies: Allergies Allergen Reactions Paxlovid [Nirmatrelvir-Ritonavir ] Anaphylaxis Pcn [Penicillins] Medications: Current Outpatient Medications: albuterol 108 (90 Base) MCG/ACT inhaler, inhale 1 to 2 puffs by mouth and INTO THE LUNGS every 6 hours if ... (REFER TO PRESCRIPTION NOTES)., Disp: , Rfl: etonogestrel-ethinyl estradiol (EnilloRing) 0.12-0.015 MG/24HR vaginal ring, Insert vaginally and leave in place for 3 consecutive weeks, then remove for 1 week., Disp: 3 Ring, Rfl: 4 tiZANidine (Zanaflex) 2 MG tablet, Take 1 tablet by mouth as needed., Disp: , Rfl: amitriptyline (Elavil) 50 MG tablet, Take 50 mg by mouth Nightly. (Patient not taking: Reported on 09/23/2024), Disp: , Rfl: dicyclomine (Bentyl) 10 MG capsule, Take 10 mg by mouth 4 times daily., Disp: , Rfl: famotidine (Pepcid) 40 MG tablet, Take 1 tablet by mouth as needed. (Patient not taking: Reported on 09/23/2024), Disp: , Rfl: hydrOXYzine HCl (Atarax) 10 MG tablet, Take by mouth., Disp: , Rfl: lidocaine (Xylocaine) 5 % ointment, Apply to just outside vaginal opening at bedtime x 6 weeks (Patient not taking: Reported on 09/23/2024), Disp: 30 g, Rfl: 0 montelukast (Singulair) 10 MG tablet, Take 10 mg by mouth Daily as needed. (Patient not taking: Reported on 09/23/2024), Disp: , Rfl: naproxen (Naprosyn) 500 MG tablet, Take 500 mg by mouth in the morning and 500 mg in the evening. Take with meals. (Patient not taking: Reported on 09/23/2024), Disp: , Rfl: omeprazole (PriLOSEC) [address] capsule, Take 20 mg by mouth every morning (before breakfast). Do not crush or chew., Disp: , Rfl: Risankizumab-rzaa (Skyrizi) 150 MG/ML solution prefilled syringe, Inject under the skin., Disp: , Rfl: PSH: Past Surgical History: Procedure Laterality Date WISDOM TOOTH EXTRACTION Bilateral FH: Family History Problem Relation Name Age of Onset Kidney cancer Father's Sister Kidney Cancer Cancer Father's Sister Kidney Cancer High Blood Pressure Paternal Grandmother Heart disease Paternal Grandmother Anesthesia problems Mother Nausea SH: Social History Socioeconomic History Marital status: Single Spouse name: Not on file Number of children: Not on file Years of education: Not on file Highest education level: Not on file Occupational History Not on file Tobacco Use Smoking status: Never Smokeless tobacco: Never Substance and Sexual Activity Alcohol use: No Drug use: No Sexual activity: Yes Partners: Male control/protection: Ring, Other Comment: Condom Other Topics Concern Not on file Social History Narrative Not on file Social Drivers of Health Financial Resource St (more content not included)... [facility] Visit (IGGYWA ) LUL SANTIAGO ([id number]) 1 F Date Time Provider Department 09/03/24 6:10 PM NANCY MCNAMARA During your visit today, we recorded the following information about you: Temperature Pulse Respiration Blood pressure 99.4 degrees 103/minute 16/minute 128/79 Weight 56.1 kg Nancy Mcnamara APRN.BILINGUAL MANAGER 09/03/2024 6:26 PM Addendum (J06.9) Viral upper respiratory tract infection with cough (primary encounter diagnosis) Plan: Brompheniramine-Pseudoe ph-DM (BROMFED DM) 2-30-10 mg/5 mL syrup (R06.02) SOB (shortness of breath) Plan: albuterol HFA (PROVENTIL HFA, VENTOLIN HFA) 90 mcg/actuation inhaler Education on viral vs bacterial infections. Most viral infections will last 2-3 weeks ago. It is possible to have back to back viral infections. An antibiotic will not treat a virus. -Will offer strep and viral testing. -Albuterol for shortness of breath/wheezing. Bromfed for cough/congestion. Prednisone with food. -Drink lots of fluids and get plenty of rest. -Vaporizers, cool mist humidifiers, warm showers, and warm fluids help open respiratory and sinus passages. Clean humidifiers daily. -OTC tylenol as directed on the bottle. -Saline nasal spray as needed. Flonase twice daily can help reduce inflammation through the sinus cavities. -Cough/deep breathing education, promote clearing of the airways and good lung expansion. -Make follow up with primary care for monitoring and resolution in symptoms. -Signs that warrant an ER evaluation: Sudden change/worsening in condition, lethargy, signs of dehydration, fever greater than 102 F that is not responding to Tylenol or ibuprofen (Motrin, Advil), drooling, difficulty swallowing, difficulty breathing, shortness of breath, chest pain, evidence of airway compromise (tripod position, neck extension, retractions), seizures, changes in mental status, or other concerns. Nancy Mcnamara APRN.BILINGUAL MANAGER 09/03/2024 6:33 PM Signed [facility] Subjective Lul Santiago is a 19 year old female. Patient presents with: Sinus Problem: Chest congestion, sneezing, sob started a week ago HPI by patient: Lul Santiago is a 19 year old presenting to the office with the complaint of viral symptoms. Started approximately 1 week ago. Associated symptoms include sore throat from indigestion, cough from indigestion, and fatigue. Has shortness of breath. Denies fever, ear pain, headache, fever, and body aches. Covid Immunization Dates Current Care Gaps Covid-19 Vaccine ( season) Overdue since 02/04/2024 09/30/2020 Imm Admin: COVID-19 original vaccine, age 12+ yr, monovalent ([employer] - [facility]) 09/08/2020 Imm Admin: COVID-19 original vaccine, age 12+ yr, monovalent ([employer] - [employer]) Sick contacts: yes, her boyfriend. Smoking history/second hand smoke: none. OTC not helping. No antibiotic use in the last 60 days. ALLERGIES Penicillins GI Upset Family History Reviewed Including Cardiac Diseases, Psychiatric Diseases, AND Substance Abuse Problem: other (Polyps benign) Relation: Mother Age of Onset: (Not Specified) Problem: Breast Cancer Relation: Maternal great-grandmother Age of Onset: 62 Social History Tobacco Use Smoking status: Never Smokeless tobacco: Never Alcohol use: Never Drug use: Never Active Ambulatory Problems No Active Ambulatory Problems Resolved Ambulatory Problems No Resolved Ambulatory Problems Past Medical History: No date: Asthma No date: GERD (gastroesophageal reflux disease) Review of Systems Constitutional: Positive for fatigue. Negative for fever. HENT: Positive for congestion and sore throat. Eyes: Negative. Respiratory: Positive for cough. Cardiovascular: Negative. Gastrointestinal: Negative. Endocrine: Negative. Genitourinary: Negative. Musculoskeletal: Negative. Skin: Negative. Neurological: Negative. Hematological: Negative. Objective BP 128/79 Pulse 103 Temp 37.4 ?C (99.4 ?F) Resp 16 Wt 56.1 kg (123 lb 9.1 oz) LMP 12/23/2022 SpO2 97% Physical Exam Vitals reviewed. Constitutional: General: She is not in acute distress. Appearance: She is not ill-appearing, toxic-appearing or diaphoretic. HENT: Head: Normocephalic and atraumatic. Right Ear: Tympanic membrane, ear canal and external ear normal. Left Ear: Tympanic membrane, ear canal and external ear normal. Nose: Nose normal. Right Sinus: No maxillary sinus tenderness or frontal sinus tenderness. Left Sinus: No maxillary sinus tenderness or frontal sinus tenderness. Mouth/Throat: Mouth: Mucous membranes are moist. Pharynx: Oropharynx is clear. No oropharyngeal exudate or posterior oropharyngeal erythema. Cardiovascular: Rate and Rhythm: Regular rhythm. Tachycardia present. Pulmonary: Effort: Pulmonary effort is normal. Breath sounds: Normal breath susie (more content not included)... Normal [facility] MR Pituitary and Sella turci ca WO and W contrast Awilda 08-16-2024 IMPRESSION: No evidence of a sellar or suprasellar lesion. Safety Physician: DEBORAH Transcribe Date/Time: Aug 16 2024 4:51P Dictated by : ANTONY MCDANIELS MD This examination was interpreted and the report reviewed and electronically signed by: ANTONY MCDANIELS MD on Aug 16 2024 4:54PM [facility] * * *Final Report* * * DATE OF EXAM: Aug 16 2024 4:33PM [facility] 0314 - MRI PITUITARY WO/W IVCON / PROCEDURE REASON: pituitary mass * * * * Physician Interpretation * * * * EXAMINATION: MRI PITUITARY WO/W IVCON CLINICAL HISTORY: Concern for pituitary lesion TECHNIQUE: High resolution sagittal and coronal T1, coronal T2, and gadolinium enhanced, fat-suppressed sagittal and coronal T1-weighted images of the pituitary region. Contrast: 2.5 mL Elucirem IV COMPARISON: MRI brain 06/30/2024 RESULT: Postop Changes: None Adenohypophysis: The pituitary gland is within normal limits of size and configuration for age. The adenohypophysis is uniformly hypointense on T1 and T2 and uniformly enhances following gadolinium administration. No evidence of an underlying mass. Neurohypophysis: The posterior pituitary gland is present and normal in size and location. The infundibulum is intact and normal in appearance. Suprasellar Region: No evidence of a suprasellar mass. The optic apparatus is normal in appearance. Cavernous Sinuses: The cavernous sinuses are normal in appearance. A normal flow void is noted in the carotid siphons suggesting patency by spin echo criteria. Brain Parenchyma: The overlying hypothalamus is normal in appearance. The visualized parenchyma is otherwise normal in signal intensity and morphology. Skull Base: No evidence of a marrow replacement process in the underlying skull base. Mucosal thickening in the bilateral maxillary sinus floors. [facility] Provider, [facility] [place] - 08/16/2024 * * *Final Report* * * DATE OF EXAM: Aug 16 2024 4:33PM [facility] 0314 - MRI PITUITARY WO/W IVCON / PROCEDURE REASON: pituitary mass * * * * Physician Interpretation * * * * EXAMINATION: MRI PITUITARY WO/W IVCON CLINICAL HISTORY: Concern for pituitary lesion TECHNIQUE: High resolution sagittal and coronal T1, coronal T2, and gadolinium enhanced, fat-suppressed sagittal and coronal T1-weighted images of the pituitary region. Contrast: 2.5 mL Elucirem IV COMPARISON: MRI brain 06/30/2024 RESULT: Postop Changes: None Adenohypophysis: The pituitary gland is within normal limits of size and configuration for age. The adenohypophysis is uniformly hypointense on T1 and T2 and uniformly enhances following gadolinium administration. No evidence of an underlying mass. Neurohypophysis: The posterior pituitary gland is present and normal in size and location. The infundibulum is intact and normal in appearance. Suprasellar Region: No evidence of a suprasellar mass. The optic apparatus is normal in appearance. Cavernous Sinuses: The cavernous sinuses are normal in appearance. A normal flow void is noted in the carotid siphons suggesting patency by spin echo criteria. Brain Parenchyma: The overlying hypothalamus is normal in appearance. The visualized parenchyma is otherwise normal in signal intensity and morphology. Skull Base: No evidence of a marrow replacement process in the underlying skull base. Mucosal thickening in the bilateral maxillary sinus floors. IMPRESSION IMPRESSION: No evidence of a sellar or suprasellar lesion. Safety Physician: DEBORAH Transcribe Date/Time: Aug 16 2024 4:51P Dictated by : ANTONY MCDANIELS MD This examination was interpreted and the report reviewed and electronically signed by: ANTONY MCDANIELS MD on Aug 16 2024 4:54PM [facility] Radiology Study observation (narrative) [facility] MR Pituitary and Sella turci ca WO and W contrast IVOrdered By: Ccf Provider on 08-16-2024 [facility] MRI PITUITARY WO/W IVCONon 0 08-16-2024 MRI PITUITARY WO/W IVCON * * *Final Report* * * DATE OF EXAM: Aug 16 2024 4:33PM [facility] 0314 - MRI PITUITARY WO/W IVCON / PROCEDURE REASON: pituitary mass * * * * Physician Interpretation * * * * EXAMINATION: MRI PITUITARY WO/W IVCON CLINICAL HISTORY: Concern for pituitary lesion TECHNIQUE: High resolution sagittal and coronal T1, coronal T2, and gadolinium enhanced, fat-suppressed sagittal and coronal T1-weighted images of the pituitary region. Contrast: 2.5 mL Elucirem IV COMPARISON: MRI brain 06/30/2024 RESULT: Postop Changes: None Adenohypophysis: The pituitary gland is within normal limits of size and configuration for age. The adenohypophysis is uniformly hypointense on T1 and T2 and uniformly enhances following gadolinium administration. No evidence of an underlying mass. Neurohypophysis: The posterior pituitary gland is present and normal in size and location. The infundibulum is intact and normal in appearance. Suprasellar Region: No evidence of a suprasellar mass. The optic apparatus is normal in appearance. Cavernous Sinuses: The cavernous sinuses are normal in appearance. A normal flow void is noted in the carotid siphons suggesting patency by spin echo criteria. Brain Parenchyma: The overlying hypothalamus is normal in appearance. The visualized parenchyma is otherwise normal in signal intensity and morphology. Skull Base: No evidence of a marrow replacement process in the underlying skull base. Mucosal thickening in the bilateral maxillary sinus floors. IMPRESSION: No evidence of a sellar or suprasellar lesion. Safety Physician: DEBORAH Transcribe Date/Time: Aug 16 2024 4:51P Dictated by : ANTONY MCDANIELS MD This examination was interpreted and the report reviewed and electronically signed by: ANTONY MCDANIELS MD on Aug 16 2024 4:54PM EST [id number] [facility] NURSING PROGon 08-16-2024 NURSING PROG HNO ID: [id number] Author: JESSICA SAAB RN Service: Radiology Author Type: Registered Nurse Type: Nursing Progress Note Filed: 08/16/2024 16:17 Note Text: Radiology Service Progress Note DATE OF SERVICE: August 16, 2024 TIME: 4:16 PM PATIENT WEIGHT: 123LBS PATIENT IDENTITY VERIFICATION COMPLETED USING TWO (2) STANDARD IDENTIFIERS: Name and Date of confirmed by patient verbally and Name and Date of confirmed by identification band. FALL SCREENING: Has the patient had 2 falls in the last year or 1 fall with injury or currently using an Ambulatory Assistive Device (Walker, Cane, Wheelchair, Crutches, etc.)? No PATIENT GENDER DATA: Assigned female at . status: Unknown status: unknown ALLERGIES: Reviewed and unchanged CONTRAST ALLERGY: No EXAM: MRI - CONTRAST TYPE: GROUP II IV SITE: Ambulatory: A peripheral IV was started in the Right with a Angio cath: 22 gauge. IV SITE APPEARANCE: Clean,Dry and Intact SIGNATURE: Jessica Saab RN PATIENT NAME: Lul Santiago DATE: August 16, 2024 TIME: 4:16 PM Normal [facility] CORTISOL, URINE, FREEon 07-07 CORTISOL 24H URINARY FREE 34.4 ug/d Normal <=45.0 [facility] Comment on above: Performed By: #### L [id number] #### [facility] ([facility]) [address] [place] [address] [facility] CORTISOL, URINE FREE - PER VOLUME 49.10 ug/L Normal [facility] Comment on above: Performed By: #### L [id number] #### [facility] ([facility]) [address] [place] [address] [facility] CORTISOL, URINE FREE - RATIO TO BROADCAST SYSTEMS ENGINEER 24.80 ug/g BROADCAST SYSTEMS ENGINEER Normal [facility] Comment on above: Result Comment: Refe rence Interval: Cortisol ug/g histology assistant Female Prepubertal: Less than 25 ug/g histology assistant 18 years and older: Less than 24 ug/g histology assistant : Less than 59 ug/g histology assistant Male Prepubertal: Less than 25 ug/g histology assistant 18 years and older: Less than 32 ug/g histology assistant Performed By: #### L [id number] #### [facility] ([facility]) [address] [place] [address] [facility] CORTISOL, URINE INTERPRETATION See Note Normal [facility] Comment on above: Result Comment: INTE RPRETIVE INFORMATION: Cortisol Urine Free by LC-MS/MS Access complete set of age- and/or gender-specific reference intervals for this test in the [facility] Test Directory ([employer]). This test was developed and its performance characteristics determined by [facility] [facility]. It has not been cleared or approved by the [place] Food and Drug Administration. This test was performed in a CLIA certified laboratory and is intended for clinical purposes. Performed By: [facility] [facility] [address] [place] [address] [employer] Guard: Dino Vieira MD, PhD CLIA Number: [id number] Performed By: #### L [id number] #### [facility] ([facility]) [address] [place] [address] [facility] CREATININE, URINE - PER 24H 1386 mg/d Normal 700-1600 [facility] Comment on above: Performed By: #### L [id number] #### [facility] ([facility]) [address] [place] [address] [place] CREATININE, URINE - PER VOLUME 198 mg/dL Normal [facility] Comment on above: Performed By: #### L [id number] #### [facility] ([facility]) [address] [place] [address] [facility] HOURS COLLECTED 24 hr Normal [facility] Comment on above: Result Comment: Per 24h calculations are provided to aid interpretation for collections with a duration of 24 hours and an average daily urine volume. For specimens with notable deviations in collection time or volume, ratios of analytes to a corresponding urine creatinine concentration may assist in result interpretation. Performed By: #### L [id number] #### [facility] ([facility]) [address] TOTAL VOLUME 700 mL Normal [facility] Comment on above: Performed By: #### L [id number] #### [facility] ([facility]) [address] [place] [address] [place] BACTERIAL VAGINOSIS NAATon 0 07-08-2024 Lactobacillus crispatus+gasseri+je nsenii + Gardnerella vaginalis + Atopobium vaginae rRNA CONCEPCION+probe Ql (Vag fld) Not detected Normal Not detected [facility] Comment on above: Order Comment: Speci men Type: SWAB Ordering Facility: [facility] Address: [address] [place] [address] Performed By: #### C VTV, BVAMP #### [facility] CLIA [id number] [address] [place] [address] [place] Bacteria Ur Culton Bacteria identified Cx Nom (U) ORGANISM ID: 1 >=100,000 CFU/ml Normal urogenital allegra Normal [facility] Comment on above: Performed By: #### 6 30-4 #### [facility] CLIA [id number] [address] [place] [address] [place] RODRIGO/TRICHOMONAS NAATon 0 07-08-2024 C. glabrata RNA CONCEPCION+probe Ql (Vag fld) Not detected Normal Not detected [facility] Comment on above: Order Comment: Speci men Type: SWAB Ordering Facility: [facility] Address: [address] [place] [address] Performed By: #### C VTV, BVAMP #### [facility] CLIA [id number] [address] [place] [address] [place] Rodrigo sp DNA CONCEPCION+probe Ql (Vag fld) Not detected Normal Not detected [facility] Comment on above: Order Comment: Speci men Type: SWAB Ordering Facility: [facility] Address: [address] [place] [address] Result Comment: The Rodrigo species group target includes C. albicans, C. tropicalis, C. parapsilosis, and C. dubliniensis. Performed By: #### C VTV, BVAMP #### [facility] CLIA [id number] [address] [place] [address] [place] T. vaginalis DNA CONCEPCION+probe Ql (Unsp spec) Not detected Normal Not detected [facility] Comment on above: Order Comment: Speci men Type: SWAB Ordering Facility: [facility] Address: [address] [place] [address] Performed By: #### C VTV, BVAMP #### [facility] CLIA [id number] [address] [place] [address] [place] CNOVon 07-08-2024 CNOV Office Visit ([facility] ) LUL SANTIAGO ([id number]) 1 F Date Time Provider Department 07/08/24 4:15 PM JAIRO ATKINS During your visit today, we recorded the following information about you: Pulse Respiration Blood pressure Weight 115/minute 16/minute 123/71 55.8 kg Jairo Atkins PA-C 07/08/2024 5:02 PM Signed 07/08/2024 Patient presents with: Urinary Tract Infection: burning, odor - has vaginal smell, started last SUBJECTIVE: This is a 19 year old with IC that is here today for possible UTI symptoms. HPI per the patient. The patient complains of vaginal odor and dysuria. She has IC and so, it is not uncommon for her to have dysuria. She wants to r/o a UTI. She also states that with the IC she "always" has microscopic hematuria. She has a urologist. Due to the vaginal odor she is concerned for BV. She state the urine does not have abnormal odor. It is the vagina. She denies any discharge or itching/irritation. She denies fever, chills, abominal pain, lower abdominal pressure, bladder spasms, back pain, or n/v. The patient denies any discharge, lesions, odor, change in sexual partners, or concern for STIs. Dysuria pain: - out of 10 with 10 being the worst pain. The lower abdominal pain is - out of 10 with 10 being the worst pain. The back/flank pain is - out of 10 with 10 being the worst pain. Self-treatment:. none The severity is mild and the symptoms are not improving. The patient has not had similar symptoms in the last 3 months. The patient has not had an antibiotic in the last 3 months. LMP:. 2 weeks ago Reviewed meds, OTCs and supplements. Meds reviewed. Allergies and medications reviewed. Reviewed allergies, medications, social history, and past medical history. Barriers to learning: none. PAST MEDICAL HISTORY Diagnosis Date Asthma GERD (gastroesophageal reflux disease) ALLERGIES Penicillins MEDICATIONS Current Outpatient Medications Medication Sig albuterol HFA (PROVENTIL HFA, VENTOLIN HFA) 90 mcg/actuation inhaler inhale 1 to 2 puffs by mouth and INTO THE LUNGS every 4 to 6 hours if needed for cough for 5 days ELURYNG 0.12-0.015 mg/24 hr vaginal ring INSERT ONE RING VAGINALLY AND LEAVE IN PLACE FOR 3 WEEKS, THEN REMOVE FOR ONE WEEK hydrOXYzine HCl (ATARAX) 25 mg tablet SKYRIZI 150 mg/mL injection tiZANidine (ZANAFLEX) 2 mg tablet TAKE 1 TABLET ORALLY EVERY 8 HOURS NEEDED FOR MUSCLE SPASM dicyclomine (BENTYL) 10 mg capsule Take 2 capsules by mouth three times a day. famotidine (PEPCID) 40 mg tablet Take 40 mg by mouth daily at bedtime. Levonorgestrel-Ethinyl Estrad (LESSINA) 0.1mg - 20mcg per tablet Take 1 tablet by mouth once daily. (Patient not taking: Reported on 11/10/2023) escitalopram oxalate (LEXAPRO) 10 mg tablet Take 10 mg by mouth once daily. (Patient not taking: Reported on 11/10/2023) montelukast (SINGULAIR) 10 mg tablet Take 10 mg by mouth once daily. (Patient not taking: Reported on 11/10/2023) No current facility-administered medications for this visit. Medications and allergies reviewed by this provider. SOCIAL HISTORY Social History Tobacco Use Smoking status: Never Smokeless tobacco: Never Substance Use Topics Alcohol use: Never Drug use: Never REVIEW OF SYSTEMS ROS: constitutional-neg, heent-neg, heart-neg, respiratory-neg, GI-neg, -concern for UTI, vaginal odor, skin-neg, lymph-neg, neuro-neg, psych-neg- All systems neg except as noted above in HPI. OBJECTIVE: BP 123/71 Pulse 115 Resp 16 Wt 55.8 kg (123 lb 2 oz) LMP 12/23/2022 SpO2 98% . Vital signs reviewed by this provider. Physical Exam Vitals reviewed. Constitutional: General: She is not in acute distress. Appearance: Normal appearance. She is well-developed and normal weight. She is not ill-appearing, toxic-appearing or diaphoretic. Cardiovascular: Rate and Rhythm: Normal rate and regular rhythm. Heart sounds: Normal heart sounds. Pulmonary: Effort: Pulmonary effort is normal. Breath sounds: Normal breath sounds and air entry. Abdominal: General: Abdomen is flat. Bowel sounds are normal. Palpations: Abdomen is soft. Tenderness: There is no abdominal tenderness. There is no right CVA tenderness, left CVA tenderness, guarding or rebound. Neurological: Mental Status: She is alert. Psychiatric: Behavior: Behavior is cooperative. ASSESSMENT/PLAN: 1. Dysuria - ICD9: 788.1, ICD10: R30.0 (primary diagnosis) H/o IC Will wait until urine culture to treat - UA DIP, URINE (POC) She states that with the IC she "always" has microscopic hematuria. - BACTERIAL CULTURE, URINE- Urine culture sent to the lab. Will contact in 2-3 days with results. (Usually Macrobid or Bactrim) 2. Vaginal odor - ICD9: 625.8, ICD10: N89.8 - BACTERIAL VAGINOSIS NAAT- would treat with Flagyl - RODRIGO/TRICHOMONAS NAAT- would treat with Difluc (more content not included)... Normal [facility] UA DIP, URINE (POC)on 2024 BILIRUBIN UA (POCT) Negative Negative [facility] CLARITY UA (POCT) Clear [facility] COLOR UA (POCT) Yellow [facility] GLUCOSE UA (POCT) Negative Negative mg/dL [facility] Hemoglobin Ql (U) Small Abnormal Negative [facility] Interpretation and review of laboratory results Abnormal [facility] KETONE UA (POCT) Negative Negative mg/dL [facility] LEUKOCYTES UA (POCT) Small Abnormal Negative [facility] NITRITE UA (POCT) Negative Negative [facility] PH UA (POCT) 7.0 4.5 - 8.0 [facility] Protein Ql (U) Negative Negative mg/dL [facility] SPECIFIC GRAVITY UA (POCT) 1.015 1.005 - 1.030 [facility] UROBILINOGEN UA (POCT) 0.2 Normal E.U./dL [facility] Location:[facility], [address] [place] [address], [address] [place] [address] POINT OF CARE [facility] 36on 07-02-2024 36 Reason for Dispositi on [1] Follow-up call to recent contact AND [2] information only call, no triage required Protocols used: Information Only Call - No [id number] S: Pt calling [facility] after missing a call from her PCP office. B: Pt states message just said to call back. A: No message left to give patient. R: Pt will call the office when open for assistance. Normal [facility] CBC W Auto Differential pane l (Bld)on 07-01-2024 Basophils (Bld) [#/Vol] 0 10*3/uL 0.0 - 0.2 10*3/uL [facility] Basophils/100 WBC (Bld) 0.3 % 0.0 - 2.0 % [facility] Eosinophils (Bld) [#/Vol] 0.1 10*3/uL 0.0 - 0.5 10*3/uL [facility] Eosinophils/100 WBC (Bld) 1.2 % 0.0 - 6.0 % [facility] Erythrocyte distribution width (RBC) [Ratio] 13.2 % 11.5 - 15.0 % [facility] Hematocrit (Bld) [Volume fraction] 40.9 % 35.0 - 47.0 % [facility] Hemoglobin (Bld) [Mass/Vol] 13.3 g/dL 11.7 - 16.0 g/dL [facility] Immature granulocytes (Bld) [#/Vol] 0 10*3/uL NINF - 0.1 10*3/uL [facility] Immature granulocytes/100 WBC (Bld) 0.2 % 0.0 - 2.0 % [facility] Interpretation and review of laboratory results Normal [facility] Lymphocytes (Bld) [#/Vol] 3.7 10*3/uL 1.0 - 4.3 10*3/uL [facility] Lymphocytes/100 WBC (Bld) 38.9 % 15.0 - 45.0 % [facility] MCH (RBC) [Entitic mass] 28.1 pg 26.0 - 34.0 pg [facility] MCHC (RBC) [Mass/Vol] 32.5 % 30.5 - 36.0 % [facility] MCV (RBC) [Entitic vol] 86.3 fL 77.0 - 99.0 fL [facility] Monocytes (Bld) [#/Vol] 0.5 10*3/uL 0.0 - 0.9 10*3/uL [facility] Monocytes/100 WBC (Bld) 5.3 % 5.0 - 13.0 % [facility] Neutrophils (Bld) [#/Vol] 5.1 10*3/uL 1.8 - 7.5 10*3/uL [facility] Neutrophils/100 WBC (Bld) 54.1 % 38.0 - 82.0 % [facility] Nucleated RBC/100 WBC (Bld) [Ratio] 0 % [facility] Platelet mean volume (Bld) [Entitic vol] 10.2 fL 9.0 - 12.7 fL [facility] Comment on above: MPV is a calculated measurement using platelet volume ratio Platelets (Bld) [#/Vol] 277 10*3/uL 140 - 440 10*3/uL [facility] RBC (Bld) [#/Vol] 4.74 10*6/uL 3.80 - 5.2 0 10*6/uL [facility] WBC (Bld) [#/Vol] 9.5 10*3/uL 3.6 - 10.7 10*3/uL [facility] CBC WITH AUTO DIFFERENTIALon 07-01-2024 Basophils (Bld) [#/Vol] 0.0 10*3/uL Normal 0.0-0.2 [facility] Comment on above: Performed By: #### L [id number] #### Server Assistant: ANGELINA MAZARIEGOS ([phone]) [facility] HARMONEFREN [facility] ([facility]) [address] [place] [address] [place] Basophils/100 WBC (Bld) 0.3 % Normal 0.0-2.0 [facility] Comment on above: Performed By: #### L [id number] #### Server Assistant: ANGELINA MAZARIEGOS ([id number]) [facility] ([facility]) [address] [place] [address] [place] Eosinophils (Bld) [#/Vol] 0.1 10*3/uL Normal 0.0-0.5 [facility] Comment on above: Performed By: #### L [id number] #### Server Assistant: ANGELINA MAZARIEGOS ([phone]) [facility] ([facility]) [address] [place] [address] [place] Eosinophils/100 WBC (Bld) 1.2 % Normal 0.0-6.0 [facility] Comment on above: Performed By: #### L [id number] #### Server Assistant: ANGELINA MAZARIEGOS ([id number]) [facility] ([facility]) [address] [place] [address] Erythrocyte distribution width (RBC) [Ratio] 13.2 % Normal 11.5-15.0 [facility] Comment on above: Performed By: #### L [id number] #### Server Assistant: ANGELINA MAZARIEGOS ([id number]) [facility]ENTER[facility] ([facility]) [address] [place] [address] Hematocrit (Bld) [Volume fraction] 40.9 % Normal 35.0-47.0 [facility] Comment on above: Performed By: #### L [id number] #### Server Assistant: ANGELINA MAZARIEGOS ([id number]) [facility] ([facility]) [address] [place] [address] Hemoglobin (Bld) [Mass/Vol] 13.3 g/dL Normal 11.7-16.0 [facility] Comment on above: Performed By: #### L [id number] #### Server Assistant: ANGELINA MAZARIEGOS ([phone]) [facility] ([facility]) [address] [place] [address] IMMATURE GRANS % 0.2 % Normal 0.0-2.0 [facility] Comment on above: Performed By: #### L [id number] #### Server Assistant: ANGELINA MAZARIEGOS ([phone]) [facility]ENTER[facility] ([facility]) [address] [place] [address] IMMATURE GRANS ABSOLUTE 0.0 10*3/uL Normal <0.1 [facility] Comment on above: Performed By: #### L [id number] #### Server Assistant: ANGELINA MAZARIEGOS ([phone]) [facility] ([facility]) [address] [place] [address] Lymphocytes (Bld) [#/Vol] 3.7 10*3/uL Normal 1.0-4.3 [facility] Comment on above: Performed By: #### L [id number] #### Server Assistant: ANGELINA MAZARIEGOS ([id number]) [facility] ([facility]) [address] [place] [address] Lymphocytes/100 WBC (Bld) 38.9 % Normal 15.0-45.0 [facility] Comment on above: Performed By: #### L [id number] #### Server Assistant: ANGELINA MAZARIEGOS ([phone]) [facility] ([facility]) [address] [place] [address] MCH (RBC) [Entitic mass] 28.1 pg Normal 26.0-34.0 [facility] Comment on above: Performed By: #### L [id number] #### Server Assistant: ANGELINA MAZARIEGOS ([id number]) [facility] ([facility]) [address] [place] [address] MCHC 32.5 % Normal 30.5-36.0 [facility] Comment on above: Performed By: #### L [id number] #### Server Assistant: ANGELINA MAZARIEGOS ([id number]) [facility] ([facility]) [address] [place] [address] MCV (RBC) [Entitic vol] 86.3 fL Normal 77.0-99.0 [facility] Comment on above: Performed By: #### L [id number] #### Server Assistant: ANGELINA MAZARIEGOS ([id number]) [facility] ([facility]) [address] [place] [address] Monocytes (Bld) [#/Vol] 0.5 10*3/uL Normal 0.0-0.9 [facility] Comment on above: Performed By: #### L [id number] #### Server Assistant: ANGELINA MAZARIEGOS ([id number]) [facility] ([facility]) [address] [place] [address] Monocytes/100 WBC (Bld) 5.3 % Normal 5.0-13.0 [facility] Comment on above: Performed By: #### L [id number] #### Server Assistant: ANGELINA MAZARIEGOS ([id number]) [facility] ([facility]) [address] [place] [address] NEUTROPHILS ABSOLUTE 5.1 10*3/uL Normal 1.8-7.[address] [facility] Comment on above: Performed By: #### L [id number] #### Server Assistant: ANGELINA MAZARIEGOS ([id number]) [facility] ([facility]) [address] [place] [address] Neutrophils/100 WBC (Bld) 54.1 % Normal 38.0-82.0 [facility] Comment on above: Performed By: #### L [id number] #### Server Assistant: ANGELINA MAZARIEGOS ([phone]) [facility] ([facility]) [address] [place] [address] NRBC 0.0 /100 WBCs Normal 0.0-2.0 [facility] Comment on above: Performed By: #### L [id number] #### Server Assistant: ANGELINA MAZARIEGOS ([phone]) [facility] ([facility]) [address] [place] [address] Platelet mean volume (Bld) [Entitic vol] 10.2 fL Normal 9.0-12.7 [facility] Comment on above: Result Comment: MPV is a calculated measurement using platelet volume ratio Performed By: #### L [id number] #### Server Assistant: ANGELINA MAZARIEGOS ([id number]) [facility] ([facility]) [address] [place] [address] Platelets (Bld) [#/Vol] 277 10*3/uL Normal 140-440 [facility] Comment on above: Performed By: #### L [id number] #### Server Assistant: ANGELINA MAZARIEGOS ([id number]) [facility] ([facility]) [address] [place] [address] RBC (Bld) [#/Vol] 4.74 10*6/uL Normal 3.80-5.20 [facility] Comment on above: Performed By: #### L [id number] #### Server Assistant: ANGELINA MAZARIEGOS ([id number]) [facility] SCHWARTZ RITTMAN (SWRLAB) [address] [place] [address] WBC (Bld) [#/Vol] 9.5 10*3/uL Normal 3.6-10.7 [facility] Comment on above: Performed By: #### L [id number] #### Server Assistant: ANGELINA MAZARIEGOS ([id number]) [facility] SCHWARTZ [facility] (SWRL[facility]) [address] [place] [address] COMPREHENSIVE METABOLIC PANE Loki 07-01-2024 Albumin [Mass/Vol] 4.5 g/dL Normal 3.5-5.0 [facility] Comment on above: Performed By: #### L AB17 #### Server Assistant: ANGELINA MAZARIEGOS ([phone]) [facility] SCHWARTZ RITTMAN (SWRLAB) [address] [place] [address] ALP [Catalytic activity/Vol] 61 U/L Normal 40-150 [facility] Comment on above: Performed By: #### L AB17 #### Server Assistant: ANGELINA MAZARIEGOS ([phone]) [facility] SCHWARTZ RITTMAN (SWRLAB) [address] [place] [address] ALT [Catalytic activity/Vol] 24 U/L Normal <30 [facility] Comment on above: Performed By: #### L AB17 #### Server Assistant: ANGELINA MAZARIEGOS ([phone]) [facility] SCHWARTZ RIT[facility]AN (SWRLAB) [address] [place] [address] Anion gap [Moles/Vol] 9 mmol/L Normal 3-13 [facility] Comment on above: Performed By: #### L AB17 #### Server Assistant: ANGELINA MAZARIEGOS ([phone]) [facility] SCHWARTZ RITTMAN (SWRLAB) [address] [place] [address] AST [Catalytic activity/Vol] 23 U/L Normal <34 [facility] Comment on above: Performed By: #### L AB17 #### Server Assistant: ANGELINA MAZARIEGOS ([phone]) [facility] SCHWARTZ RITTMAN (SWRLAB) [address] [place] [address] [place] Bilirubin [Mass/Vol] 0.4 mg/dL Normal <1.2 [facility] Comment on above: Performed By: #### L AB17 #### Server Assistant: ANGELINA MAZARIEGOS ([phone]) [facility] SCHWARTZ RITTMAN (SWRLAB) [address] [place] [address] Calcium [Mass/Vol] 10.5 mg/dL High 8.4-10.2 [facility] Comment on above: Performed By: #### L AB17 #### Server Assistant: ANGELINA MAZARIEGOS ([phone]) [facility] SCHWARTZ RIT[facility]AN (SWRLAB) [address] [place] [address] Chloride [Moles/Vol] 105 mmol/L Normal 98-107 [facility] Comment on above: Performed By: #### L AB17 #### Server Assistant: ANGELINA MAZARIEGOS ([phone]) [facility] SCHWARTZ RITTMAN (SWRLAB) [address] [place] [address] CO2 [Moles/Vol] 24 mmol/L Normal 22-29 [facility] Comment on above: Performed By: #### L AB17 #### Server Assistant: ANGELINA MAZARIEGOS ([phone]) [facility] SCHWARTZ RITTMAN (SWRLAB) [address] [place] [address] Creatinine [Mass/Vol] 0.71 mg/dL Normal 0.57-1.11 [facility] Comment on above: Performed By: #### L AB17 #### Server Assistant: ANGELINA MAZARIEGOS ([phone]) [facility] SCHWARTZ R[facility]AN (SWRLAB) [address] [place] [address] GLOMERULAR FILTRATION RATE ML/MIN/1.73 SQ M.PREDICTED >90.0 Normal >60.0 [facility] Comment on above: Result Comment: Calc ulation based on the Chronic Kidney Disease Epidemiology Collaboration (CKD-EPI) equation refit without adjustment for race Performed By: #### L AB17 #### Server Assistant: ANGELINA MAZARIEGOS ([phone]) [facility] DEL ROSARIOTMAN (SWRLAB) [address] [place] [address] Glucose [Mass/Vol] 78 mg/dL Normal 74-100 [facility] Comment on above: Performed By: #### L AB17 #### Server Assistant: ANGELINA MAZARIEGOS ([phone]) [facility] SCHWARTZ RITTMAN (SWRLAB) [address] [place] [address] Potassium [Moles/Vol] 3.5 mmol/L Normal 3.5-5.1 [facility] Comment on above: Result Comment: Plas ma potassium values may be up to 0.5 mmol/L lower than serum values. Performed By: #### L AB17 #### Server Assistant: ANGELINA MAZARIEGOS ([phone]) [facility] SCHWARTZ RITTMAN (SWRLAB) [address] [place] [address] Protein [Mass/Vol] 8.5 g/dL High 6.4-8.3 [facility] Comment on above: Performed By: #### L AB17 #### Server Assistant: ANGELINA MAZARIEGOS ([phone]) [facility] SCHWARTZ RITTMAN (SWRLAB) [address] [place] [address] Sodium [Moles/Vol] 138 mmol/L Normal 136-145 [facility] Comment on above: Performed By: #### L AB17 #### Server Assistant: ANGELINA MAZARIEGOS ([phone]) [facility] SCHWARTZ RITTMAN (SWRLAB) [address] [place] [address] Urea nitrogen [Mass/Vol] 10 mg/dL Normal 8-21 [facility] Comment on above: Performed By: #### L AB17 #### Server Assistant: ANGELINA MAZARIEGOS ([phone]) [facility] SCHWARTZ RITTMAN (SWRLAB) [address] [place] [address] Comprehensive metabolic 1998 panelon 07-01-2024 Albumin [Mass/Vol] 4.5 g/dL 3.5 - 5.0 g/dL [facility] ALP [Catalytic activity/Vol] 61 U/L 40 - 150 U/L [facility] ALT [Catalytic activity/Vol] 24 U/L NINF - 30 U/L [facility] Anion gap [Moles/Vol] 9 mmol/L 3 - 13 mmol/L [facility] AST [Catalytic activity/Vol] 23 U/L NINF - 34 U/L [facility] Bilirubin [Mass/Vol] 0.4 mg/dL NINF - 1.2 mg/dL [facility] Calcium [Mass/Vol] 10.5 mg/dL High 8.4 - 10. 2 mg/dL [facility] Chloride [Moles/Vol] 105 mmol/L 98 - 10 7 mmol/L [facility] CO2 [Moles/Vol] 24 mmol/L 22 - 29 mmol/L [facility] Creatinine [Mass/Vol] 0.71 mg/dL 0.57 - 1.11 mg/dL [facility] GFR/1.73 sq M.predicted (S/P/Bld) [Vol rate/Area] - PINF [facility] Comment on above: Calculation based on the Chronic Kidney Disease Epidemiology Collaboration (CKD-EPI) equation refit without adjustment for race Glucose [Mass/Vol] 78 mg/dL 74 - 100 mg/dL [facility] Interpretation and review of laboratory results Abnormal [facility] Potassium [Moles/Vol] 3.5 mmol/L 3.5 - 5.1 mmol/L [facility] Comment on above: Plasma potassium viktoria ues may be up to 0.5 mmol/L lower than serum values. Protein [Mass/Vol] 8.5 g/dL High 6.4 - 8.3 g/dL [facility] Sodium [Moles/Vol] 138 mmol/L 136 - 145 mmol/L [facility] Urea nitrogen [Mass/Vol] 10 mg/dL 8 - 21 mg/dL [facility] MR Brain WO and W contrast I Von 06-30-2024 * * *Final Report* * * DATE OF EXAM: Jun 30 2024 1:48PM [facility]DM 0295 - MRI BRAIN WO/W IVCON / PROCEDURE REASON: SEND CD R25.1 TREMOR OF BOTH HANDS * * * * Physician Interpretation * * * * EXAMINATION: MRI BRAIN WO/W IVCON CLINICAL HISTORY: R25.1 TREMOR OF BOTH HANDS TECHNIQUE: Routine brain MRI protocol without and with contrast including diffusion images. MQ: MRBWOW_2 Contrast: 5 mL Elucirem IV COMPARISON: None. RESULT: Acute Change: There is no evidence of restricted diffusion to suggest an acute infarct. Hemorrhage: No evidence of prior parenchymal hemorrhage on the susceptibility weighted images. Mass Lesion/ Mass Effect: No evidence of an intracranial mass or extra-axial fluid collection. No abnormal parenchymal or leptomeningeal enhancement is noted following contrast administration. No significant mass effect. Chronic Change: The white matter is within normal limits of signal intensity for age. Parenchyma: No significant volume loss for age. The brain parenchyma is otherwise within normal limits of signal intensity and morphology. Ventricles: Normal caliber and morphology. Skull Base: Question of a hypoenhancing focus in the right aspect of the sella. Craniocervical junction is normal. No significant marrow replacement process. Vasculature: Left vertebral artery contacts the left ventral medulla. Major intracranial arterial structures, and dural venous sinuses show typical flow void, suggesting patency by spin echo criteria. Other: The visualized paranasal sinuses and mastoid air cells are clear. The orbits and extracranial soft tissues are unremarkable. [facility] Provider, [facility] - 06/30/2024 * * *Final Report* * * DATE OF EXAM: Jun 30 2024 1:48PM [facility] 0295 - MRI BRAIN WO/W IVCON / PROCEDURE REASON: SEND CD R25.1 TREMOR OF BOTH HANDS * * * * Physician Interpretation * * * * EXAMINATION: MRI BRAIN WO/W IVCON CLINICAL HISTORY: R25.1 TREMOR OF BOTH HANDS TECHNIQUE: Routine brain MRI protocol without and with contrast including diffusion images. MQ: MRBWOW_2 Contrast: 5 mL Elucirem IV COMPARISON: None. RESULT: Acute Change: There is no evidence of restricted diffusion to suggest an acute infarct. Hemorrhage: No evidence of prior parenchymal hemorrhage on the susceptibility weighted images. Mass Lesion/ Mass Effect: No evidence of an intracranial mass or extra-axial fluid collection. No abnormal parenchymal or leptomeningeal enhancement is noted following contrast administration. No significant mass effect. Chronic Change: The white matter is within normal limits of signal intensity for age. Parenchyma: No significant volume loss for age. The brain parenchyma is otherwise within normal limits of signal intensity and morphology. Ventricles: Normal caliber and morphology. Skull Base: Question of a hypoenhancing focus in the right aspect of the sella. Craniocervical junction is normal. No significant marrow replacement process. Vasculature: Left vertebral artery contacts the left ventral medulla. Major intracranial arterial structures, and dural venous sinuses show typical flow void, suggesting patency by spin echo criteria. Other: The visualized paranasal sinuses and mastoid air cells are clear. The orbits and extracranial soft tissues are unremarkable. IMPRESSION IMPRESSION: Question of a sellar lesion, suggest further evaluation with dedicated pituitary MRI. No evidence of an acute intracranial process. Safety Physician: PSCB Transcribe Date/Time: Jun 30 2024 1:53P Dictated by : HA AVALOS MD This examination was interpreted and the report reviewed and electronically signed by: HA AVALOS MD on Jun 30 2024 2:12PM EST [facility] Radiology Study observation (narrative) [facility] MR Brain WO and W contrast I VOrdered By: [facility] Provider on 06-30-2024 [facility] MRI BRAIN WO/W IVCONon 06-30 MRI BRAIN WO/W IVCON * * *Final Report* * * DATE OF EXAM: Jun 30 2024 1:48PM [facility] 0295 - MRI BRAIN WO/W IVCON / PROCEDURE REASON: SEND CD R25.1 TREMOR OF BOTH HANDS * * * * Physician Interpretation * * * * EXAMINATION: MRI BRAIN WO/W IVCON CLINICAL HISTORY: R25.1 TREMOR OF BOTH HANDS TECHNIQUE: Routine brain MRI protocol without and with contrast including diffusion images. MQ: MRBWOW_2 Contrast: 5 mL Elucirem IV COMPARISON: None. RESULT: Acute Change: There is no evidence of restricted diffusion to suggest an acute infarct. Hemorrhage: No evidence of prior parenchymal hemorrhage on the susceptibility weighted images. Mass Lesion/ Mass Effect: No evidence of an intracranial mass or extra-axial fluid collection. No abnormal parenchymal or leptomeningeal enhancement is noted following contrast administration. No significant mass effect. Chronic Change: The white matter is within normal limits of signal intensity for age. Parenchyma: No significant volume loss for age. The brain parenchyma is otherwise within normal limits of signal intensity and morphology. Ventricles: Normal caliber and morphology. Skull Base: Question of a hypoenhancing focus in the right aspect of the sella. Craniocervical junction is normal. No significant marrow replacement process. Vasculature: Left vertebral artery contacts the left ventral medulla. Major intracranial arterial structures, and dural venous sinuses show typical flow void, suggesting patency by spin echo criteria. Other: The visualized paranasal sinuses and mastoid air cells are clear. The orbits and extracranial soft tissues are unremarkable. IMPRESSION: Question of a sellar lesion, suggest further evaluation with dedicated pituitary MRI. No evidence of an acute intracranial process. Safety Physician: PSCB Transcribe Date/Time: Jun 30 2024 1:53P Dictated by : HA AVALOS MD This examination was interpreted and the report reviewed and electronically signed by: HA AVALOS MD on Jun 30 2024 2:12PM EST [id number] [facility] POCT Influenza A/B manually resultedon 06-04-2024 Interpretation and review of laboratory results Normal [facility] Work Phone: POC Rapid Influenza A Negative Negative [facility] Work Phone: POC Rapid Influenza B Negative Negative [facility] Work Phone: [facility] Work Phone: [facility] 03-11-2024 [facility] HNO ID: [id number] Author: SERA PEARSON CT Service: Radiology Author Type: Technologist Type: Allied Health Filed: 03/11/2024 10:50 Note Text: Radiology Service Progress Note PATIENT NAME: Lul Santiago DATE OF SERVICE: March 11, 2024 TIME: 10:49 AM PATIENT IDENTITY VERIFICATION COMPLETED USING TWO (2) IDENTIFIERS: Name and Date of confirmed by patient verbally and Name and Date of confirmed by identification band. FALL SCREENING: Has the patient had 2 falls in the last year or 1 fall with injury or currently using an Ambulatory Assistive Device (Walker, Cane, Wheelchair, Crutches, etc.)? Emergency Room Patient: Screened in ED PATIENT GENDER DATA: Female. status: : No status: NO. PATIENT RELEVANT IMPLANT DATA REVIEWED: Not Applicable PATIENT PRESENTS WITH AN IMPLANTABLE OR ATTACHED DOWEL PIN WORKER: No RADIOLOGY DEPARTMENT: CT; Exam(s) Completed: Abdomen/Pelvis PERIPHERAL IV DATA: Inpatient: see LDA documentation SIGNED BY: SHIELA Avila March 11, 2024 10:49 AM Normal [facility] BETA HCG, QUANTITATIVE FOR Juan Burroughs 03-11-2024 HCG.beta subunit Qn m[IU]/mL Normal <5.0 [facility] Comment on above: Order Comment: Specthang judd Type: BLOOD SPECIMEN Ordering Facility: [facility] Address: [address] [place] [address] Result Comment: Yair solomon Performed By: #### H CGED, 76488-2, 3040-3 #### [facility] CLIA [id number] [address] [place] CBC W Auto Differential pane l (Bld)on 03-11-2024 Basophils (Bld) [#/Vol] 0.04 10*3/uL Normal <0.11 [facility] Comment on above: Order Comment: Rimma judd Type: BLOOD SPECIMEN Ordering Facility: [facility] Address: [address] [place] [address] Performed By: #### 5 7021-8 #### [facility] CLIA [id number] [address] [place] [address] [place] Basophils/100 WBC (Bld) 0.5 % Normal [facility] Comment on above: Order Comment: Rimma judd Type: BLOOD SPECIMEN Ordering Facility: [facility] Address: [address] [place] [address] Performed By: #### 5 7021-8 #### [facility] CLIA [id number] [address] [place] [address] [place] Differential cell count method Nom (Bld) Auto Normal [facility] Comment on above: Order Comment: Rimma judd Type: BLOOD SPECIMEN Ordering Facility: [facility] Address: [address] [place] [address] Performed By: #### 5 7021-8 #### [facility] CLIA [id number] [address] [place] [address] [place] Eosinophils (Bld) [#/Vol] 0.12 10*3/uL Normal <0.46 [facility] Comment on above: Order Comment: Speci men Type: BLOOD SPECIMEN Ordering Facility: [facility] Address: [address] [place] [address] Performed By: #### 5 7021-8 #### [facility] CLIA [id number] [address] [place] Eosinophils/100 WBC (Bld) 1.6 % Normal [facility] Comment on above: Order Comment: Speci men Type: BLOOD SPECIMEN Ordering Facility: [facility] Address: [address] [place] [address] Performed By: #### 5 7021-8 #### [facility] CLIA [id number] [address] [place] Erythrocyte distribution width (RBC) [Ratio] 12.7 % Normal 11.5-15.0 [facility] Comment on above: Order Comment: Speci men Type: BLOOD SPECIMEN Ordering Facility: [facility] Address: [address] [place] [address] Performed By: #### 5 7021-8 #### [facility] CLIA [id number] [address] [place] Hematocrit (Bld) [Volume fraction] 37.3 % Normal 36.0-46.0 [facility] Comment on above: Order Comment: Speci men Type: BLOOD SPECIMEN Ordering Facility: [facility] Address: [address] [place] [address] Performed By: #### 5 7021-8 #### [facility] CLIA [id number] [address] [place] [address] [place] Hemoglobin (Bld) [Mass/Vol] 12.0 g/dL Normal 11.5-15.5 [facility] Comment on above: Order Comment: Speci men Type: BLOOD SPECIMEN Ordering Facility: [facility] Address: [address] [place] [address] Performed By: #### 5 7021-8 #### [facility] CLIA [id number] [address] [place] [address] [place] Immature granulocytes (Bld) [#/Vol] 10*3/uL Normal <0.10 [facility] Comment on above: Order Comment: Speci men Type: BLOOD SPECIMEN Ordering Facility: [facility] Address: [address] [place] [address] Performed By: #### 5 7021-8 #### [facility] CLIA [id number] [address] [place] Immature granulocytes/100 WBC (Bld) 0.1 % Normal [facility] Comment on above: Order Comment: Speci men Type: BLOOD SPECIMEN Ordering Facility: [facility] Address: [address] [place] [address] Performed By: #### 5 7021-8 #### [facility] CLIA [id number] [address] Lymphocytes (Bld) [#/Vol] 1.92 10*3/uL Normal 1.00-4.00 [facility] Comment on above: Order Comment: Speci men Type: BLOOD SPECIMEN Ordering Facility: [facility] Address: [address] [place] [address] Performed By: #### 5 7021-8 #### [facility] CLIA [id number] [address] Lymphocytes/100 WBC (Bld) 25.6 % Normal [facility] Comment on above: Order Comment: Speci men Type: BLOOD SPECIMEN Ordering Facility: [facility] Address: [address] [place] [address] Performed By: #### 5 7021-8 #### [facility] CLIA [id number] [address] MCH (RBC) [Entitic mass] 28.1 pg Normal 26.0-34.0 [facility] Comment on above: Order Comment: Speci men Type: BLOOD SPECIMEN Ordering Facility: [facility] Address: [address] [place] [address] Performed By: #### 5 7021-8 #### [facility] CLIA [id number] [address] [place] [address] [place] MCHC (RBC) [Mass/Vol] 32.2 g/dL Normal 30.5-36.0 [facility] Comment on above: Order Comment: Speci men Type: BLOOD SPECIMEN Ordering Facility: [facility] Address: [address] [place] [address] Performed By: #### 5 7021-8 #### [facility] CLIA [id number] [address] [place] [address] [place] MCV (RBC) [Entitic vol] 87.4 fL Normal 80.0-100.0 [facility] Comment on above: Order Comment: Speci men Type: BLOOD SPECIMEN Ordering Facility: [facility] Address: [address] [place] [address] Performed By: #### 5 7021-8 #### [facility] CLIA [id number] [address] [place] [address] [place] Monocytes (Bld) [#/Vol] 0.76 10*3/uL Normal <0.87 [facility] Comment on above: Order Comment: Speci men Type: BLOOD SPECIMEN Ordering Facility: [facility] Address: [address] [place] [address] Performed By: #### 5 7021-8 #### [facility] CLIA [id number] [address] Monocytes/100 WBC (Bld) 10.1 % Normal [facility] Comment on above: Order Comment: Speci men Type: BLOOD SPECIMEN Ordering Facility: [facility] Address: [address] [place] [address] Performed By: #### 5 7021-8 #### [facility] CLIA [id number] [address] [place] [address] [place] Neutrophils (Bld) [#/Vol] 4.64 10*3/uL Normal 1.45-7.50 [facility] Comment on above: Order Comment: Speci men Type: BLOOD SPECIMEN Ordering Facility: [facility] Address: [address] [place] [address] Performed By: #### 5 7021-8 #### [facility] CLIA [id number] [address] [place] Neutrophils/100 WBC (Bld) 62.1 % Normal [facility] Comment on above: Order Comment: Speci men Type: BLOOD SPECIMEN Ordering Facility: [facility] Address: [address] [place] [address] Performed By: #### 5 7021-8 #### [facility] CLIA [id number] [address] [place] Nucleated RBC (Bld) [#/Vol] 10*3/uL Normal <0.01 [facility] Comment on above: Order Comment: Speci men Type: BLOOD SPECIMEN Ordering Facility: [facility] Address: [address] [place] [address] Performed By: #### 5 7021-8 #### [facility] CLIA [id number] [address] Nucleated RBC/100 WBC (Bld) [Ratio] 0.0 /100 WBC Normal [facility] Comment on above: Order Comment: Speci men Type: BLOOD SPECIMEN Ordering Facility: [facility] Address: [address] [place] [address] Performed By: #### 5 7021-8 #### [facility] CLIA [id number] [address] [place] Platelet mean volume (Bld) [Entitic vol] 10.1 fL Normal 9.0-12.7 [facility] Comment on above: Order Comment: Speci men Type: BLOOD SPECIMEN Ordering Facility: [facility] Address: [address] [place] [address] Performed By: #### 5 7021-8 #### [facility] CLIA [id number] [address] [place] [address] [place] Platelets (Bld) [#/Vol] 207 10*3/uL Normal 150-400 [facility] Comment on above: Order Comment: Speci men Type: BLOOD SPECIMEN Ordering Facility: [facility] Address: [address] [place] [address] Performed By: #### 5 7021-8 #### [facility] CLIA [id number] [address] [place] [address] [place] RBC (Bld) [#/Vol] 4.27 10*6/uL Normal 3.90-5.20 [facility] Comment on above: Order Comment: Speci men Type: BLOOD SPECIMEN Ordering Facility: [facility] Address: [address] [place], [place] [address] Performed By: #### 5 7021-8 #### [facility] CLIA [id number] [address] OF [facility] WBC (Bld) [#/Vol] 7.49 10*3/uL Normal 3.70-11.00 [facility] Comment on above: Order Comment: Speci men Type: BLOOD SPECIMEN Ordering Facility: [facility] Address: [address] [place] [address] Performed By: #### 5 7021-8 #### [facility] CLIA [id number] [address] ABD/PEL W IVCONon 024 CT ABD/PEL W IVCON * * *Final Report* * * DATE OF EXAM: Mar 11 2024 10:54AM [facility] [place] ABD/PEL W IVCON / PROCEDURE REASON: Abdominal abscess/infection suspected * * * * Physician Interpretation * * * * EXAMINATION: CT ABDOMEN AND PELVIS WITH IV CONTRAST CLINICAL HISTORY: Right lower quadrant abdominal pain and diarrhea for several days. History of ovarian cyst with similar symptoms. TECHNIQUE: CT of the abdomen and pelvis was performed using standard technique, scanning from just above the dome of the diaphragm to the symphysis pubis. MQ: CTAP_3 Contrast: IV: 100 ml of Omnipaque 350 CT Radiation dose: Integrated Dose-length product (DLP) for this visit = 157 mGy*cm. CT Dose Reduction Employed: Automated exposure control(AEC) and iterative recon COMPARISON: Ultrasound 10/13/2023. RESULT: Liver: Subcentimeter hypoattenuating left hepatic dome lesion, too small to characterize but likely benign. Focal fat deposition along the falciform ligament. Biliary: No bile duct dilation. Gallbladder is unremarkable. Spleen: No mass. No splenomegaly. Pancreas: No mass or duct dilation. Adrenals: No mass. Kidneys: No mass, calculus or hydronephrosis. GI tract: No dilation or wall thickening. Normal appendix. Lymph nodes: No abdominal or pelvic lymphadenopathy. Mesentery/Peritoneum: No ascites or mass. Retroperitoneum: No mass. Vasculature: - Abdominal aorta and iliac arteries: No aneurysm. - Celiac and SMA: Patent without stenosis. - Portal venous system (SMV, splenic vein, portal vein and branches): Patent. - Hepatic veins: Patent. Pelvis: No ascites or fluid collection. 3.1 x 2.2 cm fluid attenuating right adnexal lesion (2:91), likely a cyst. Bones/Soft Tissues: No significant finding. Lower thorax: Unremarkable. Localizer images: No additional findings. IMPRESSION: 3.1 cm fluid attenuating right adnexal lesion, likely a simple cyst. Otherwise, no acute abnormality within the abdomen or pelvis. Safety Physician: DEBORAH Transcribe Date/Time: Mar 11 2024 11:28A Dictated by : KIA ALLISON MD This examination was interpreted and the report reviewed and electronically signed by: KIA ALLISON MD on Mar 11 2024 11:47AM EST [id number] Normal [facility] Comprehensive metabolic 2000 panelon 03-11-2024 Albumin [Mass/Vol] 4.0 g/dL Normal 3.9-4.9 [facility] Comment on above: Order Comment: Rimma judd Type: BLOOD SPECIMEN Ordering Facility: [facility] Address: [address] [place] [address] Performed By: #### H AMILCARED, 00988-2, 3040-3 #### [facility] CLIA [id number] [address] [place] [address] [place] ALP [Catalytic activity/Vol] 48 U/L Normal 34-123 [facility] Comment on above: Order Comment: Rimma judd Type: BLOOD SPECIMEN Ordering Facility: [facility] Address: [address] [place] [address] Performed By: #### H CGED, 24669-3, 3040-3 #### [facility] CLIA [id number] [address] [place] ALT [Catalytic activity/Vol] 11 U/L Normal 7-38 [facility] Comment on above: Order Comment: Rimma judd Type: BLOOD SPECIMEN Ordering Facility: [facility] Address: [address] [place] [address] Performed By: #### Sukhjinder AMILCARED, 04228-8, 0-3 #### [facility] CLIA [id number] [address] STATES OF [facility] Anion gap [Moles/Vol] 11 mmol/L Normal 8-15 [facility] Comment on above: Order Comment: Speci men Type: BLOOD SPECIMEN Ordering Facility: [facility] Address: [address] [place] [address] Performed By: #### H BELKIS, 02641-2, 0-3 #### [facility] CLIA [id number] [address] [place] AST [Catalytic activity/Vol] 15 U/L Normal 13-35 [facility] Comment on above: Order Comment: Speci men Type: BLOOD SPECIMEN Ordering Facility: [facility] Address: [address] [place] [address] Performed By: #### Sukhjinder TAMAYO, , 3039-3 #### [facility] CLIA [id number] [address] [place] [address] [place] Bilirubin [Mass/Vol] 0.4 mg/dL Normal 0.2-1.3 [facility] Comment on above: Order Comment: Speci men Type: BLOOD SPECIMEN Ordering Facility: [facility] Address: [address] [place] [address] Performed By: #### Sukhjinder TAMAYO, , 3039-3 #### [facility] CLIA [id number] [address] [place] [address] [place] Calcium [Mass/Vol] 9.0 mg/dL Normal 8.5-10.2 [facility] Comment on above: Order Comment: Speci men Type: BLOOD SPECIMEN Ordering Facility: [facility] Address: [address] [place] [address] [place] [address] Performed By: #### H AMILCARED, 92129-4, 0-3 #### [facility] CLIA [id number] [address] [place] [address] [place] Chloride [Moles/Vol] 105 mmol/L Normal 98-107 [facility] Comment on above: Order Comment: Rimma judd Type: BLOOD SPECIMEN Ordering Facility: [facility] Address: [facility] [place] [address] Performed By: #### H CGED, 01870-6, 3040-3 #### [facility] CLIA [id number] [address] [place] [address] [place] CO2 [Moles/Vol] 23 mmol/L Normal 22-30 [facility] Comment on above: Order Comment: Rimma men Type: BLOOD SPECIMEN Ordering Facility: [facility] Address: [address] [place] [address] Performed By: #### H CGED, 27392-5, 0-3 #### [facility] CLIA [id number] [address] [place] [address] [place] Creatinine [Mass/Vol] 0.60 mg/dL Normal 0.58-0.96 [facility] Comment on above: Order Comment: Rimma judd Type: BLOOD SPECIMEN Ordering Facility: [facility] Address: [address] [place] [address] Performed By: #### H CGED, 15094-9, 0-3 #### [facility] CLIA [id number] [address] Creatinine and Glomerular filtration rate.predicted panel (S/P/Bld) 132 mL/min/1.73m??? Normal >=60 [facility] Comment on above: Order Comment: Rimma judd Type: BLOOD SPECIMEN Ordering Facility: [facility] Address: [address] [place] [address] Result Comment: Maisha mated Glomerular Filtration Rate (eGFR) is calculated using the 2020 CKD-EPI creatinine equation. This equation utilizes serum creatinine, sex, and age as parameters. The creatinine assay has traceable calibration to isotope dilution-mass spectrometry. Refer to KDIGO guidelines for clinical interpretation. In patients with unstable renal function, e.g. those with acute kidney injury, the eGFR may not accurately reflect actual GFR. Performed By: #### H CGED, 61165-6, 3040-3 #### [facility] CLIA [id number] [address] [place] [address] [place] Glucose [Mass/Vol] 92 mg/dL Normal 74-99 [facility] Comment on above: Order Comment: Rimma judd Type: BLOOD SPECIMEN Ordering Facility: [facility] Address: [address] [place] [address] Result Comment: The [place] Diabetes Association (ADA) provides guidance for cutoff values for fasting glucose and random glucose. The ADA defines fasting as no caloric intake for at least 8 hours. Fasting plasma glucose results between 100 to 125 mg/dL indicate increased risk for diabetes (prediabetes). Fasting plasma glucose results greater than or equal to 126 mg/dL meet the criteria for diagnosis of diabetes. In the absence of unequivocal hyperglycemia, results should be confirmed by repeat testing. In a patient with classic symptoms of hyperglycemia or hyperglycemic crisis, random plasma glucose results greater than or equal to 200 mg/dL meet the criteria for diagnosis of diabetes. Reference: Standards of Medical Care in Diabetes 2016, [place] [employer]. Diabetes Care. 2016.39(Suppl 1). Performed By: #### H CGED, 66791-6, 3040-3 #### [facility] CLIA [id number] [address] [place] [address] [place] Potassium [Moles/Vol] 4.1 mmol/L Normal 3.7-5.1 [facility] Comment on above: Order Comment: Rimma judd Type: BLOOD SPECIMEN Ordering Facility: [facility] Address: [address] [place] [address] Performed By: #### H CGED, 68711-7, 3040-3 #### [facility] CLIA [id number] [address] [place] [address] [place] Protein [Mass/Vol] 6.6 g/dL Normal 6.3-8.0 [facility] Comment on above: Order Comment: Rimma judd Type: BLOOD SPECIMEN Ordering Facility: [facility] Address: [address] [place] [address] Performed By: #### H CGED, 06184-4, 3040-3 #### [facility] CLIA [id number] [address] [place] [address] [place] Sodium [Moles/Vol] 139 mmol/L Normal 136-144 [facility] Comment on above: Order Comment: Speci men Type: BLOOD SPECIMEN Ordering Facility: [facility] Address: [address] [place] [address] Performed By: #### H CGED, 20762-6, 3040-3 #### [facility] CLIA [id number] [address] [place] [address] [facility] Urea nitrogen [Mass/Vol] 11 mg/dL Normal 7-21 [facility] Comment on above: Order Comment: Speci men Type: BLOOD SPECIMEN Ordering Facility: [facility] Address: [address] [place] [address] Performed By: #### H CGED, 45052-4, 3040-3 #### [facility] CLIA [id number] [address] [place] [id number] [facility] ED PROV NOTEon 03-11-2024 ED PROV NOTE HNO ID: [id number] Author: ELIZABETH BLANCAS PA-C Service: ? Author Type: Physician Travel Consultant Type: ED Provider Notes Filed: 03/11/2024 12:26 Note Text: ED Provider Note Patient Name: Lul Santiago : 2005 SERVICE DATE: 03/11/24 History Patient presents with: Abdominal Pain: Patient presents to ED with CC of RLQ abdominal pain for the last several days. Patient states that she has had associated diarrhea. She endorses hx of ovarian cysts and states this pain feels similar. 18-year-old female with a past medical history of GERD, presents to the ED today for right lower quadrant abdominal pain, patient said the pain for the last couple days, she has also had diarrhea, she has had a history of ovarian cyst and states it feels very similar to that, denies any urinary symptoms, denies any chest pain shortness of breath, denies any back pain or abdominal pain, she finished her menstrual cycle yesterday. PAST MEDICAL HISTORY Diagnosis Date Asthma GERD (gastroesophageal reflux disease) PAST SURGICAL HISTORY Procedure Laterality Date ALVEOLOPLASTY NOT IN CONJUNCTION WITH EXTRACTIONS - ONE TO THREE TEETH OR TOOTH SPACES, PER [facility] FAMILY HISTORY Problem Relation Age of Onset other (Polyps benign) Mother Breast Cancer Maternal great-grandmother 62 Social History Tobacco Use Smoking status: Never Smokeless tobacco: Never Substance and Sexual Activity Alcohol use: Never Drug use: Never Sexual activity: Not Currently Partners: Male ALLERGIES Allergen Reactions Penicillins GI Upset Review of Systems Constitutional: Negative for chills, fatigue and fever. HENT: Negative for trouble swallowing. Eyes: Negative for photophobia. Respiratory: Negative for chest tightness, shortness of breath and wheezing. Cardiovascular: Negative for chest pain, palpitations and leg swelling. Gastrointestinal: Positive for abdominal pain and diarrhea. Negative for nausea and vomiting. Genitourinary: Negative for dysuria, flank pain, hematuria, pelvic pain, vaginal bleeding and vaginal discharge. Musculoskeletal: Negative for back pain, neck pain and neck stiffness. Skin: Negative for color change. Neurological: Negative for dizziness, numbness and headaches. Psychiatric/Behavioral: Negative for confusion. Physical Exam Vitals [03/11/24 0855] BP Pulse Temp Temp src Resp SpO2 Weight Height 127/60 (!) 94 36.9 ?C (98.4 ?F) Oral 20 99 % 52.2 kg (115 lb) -- Physical Exam Constitutional: Appearance: She is well-developed. HENT: Head: Normocephalic and atraumatic. Nose: Nose normal. Eyes: Conjunctiva/sclera: Conjunctivae normal. Cardiovascular: Rate and Rhythm: Normal rate and regular rhythm. Pulmonary: Effort: Pulmonary effort is normal. No respiratory distress. Breath sounds: Normal breath sounds. No wheezing. Abdominal: General: Bowel sounds are normal. Palpations: Abdomen is soft. Tenderness: There is abdominal tenderness in the right lower quadrant. There is no guarding or rebound. Musculoskeletal: General: Normal range of motion. Cervical back: Normal range of motion and neck supple. Skin: General: Skin is warm and dry. Neurological: Mental Status: She is alert and oriented to person, place, and time. Psychiatric: Behavior: Behavior normal. Diagnostic Testing ED Labs Ordered and Reviewed COMPLETE BLOOD COUNT AND DIFFERENTIAL COMPREHENSIVE METABOLIC PANEL LIPASE BETA HCG, QUANTITATIVE FOR ED URINALYSIS WITH MICROSCOPIC, REFLEX CULTURE Procedures ED Course / Clinical Impression Clinical Impressions as of 03/11/24 1224 Right lower quadrant abdominal pain Diarrhea, unspecified type Cyst of right ovary Rest Home meds See pcp Return to ed if sx worsen MDM / Disposition / Plan The medical record is reviewed.Triage note is reviewed and incorporated.The nursing note is reviewed and consistent with patient's history and physical exam findings. The vital signs were reviewed and the vital signs are : BP 117/75 Pulse (!) 99 Temp 36.9 ?C (98.4 ?F) (Oral) Resp 19 Wt 52.2 kg (115 lb) LMP (Within Weeks) SpO2 100% ASSESSMENT AND PLAN: This is a 18 year old female who presents to the ED with a chief complaint of abdominal pain. Plan is labs, UA, CT. . Patient presents for abdominal pain, she has a history of ovarian cyst, patient is in no distress, CT abdomen showed a 3.1 cm fluid adnexal lesion more likely a cyst, no acute abdomen, patient remains in no distress, at this time patient be discharged home with close follow-up, DISCHARGE INSTRUCTIONS The patient has remained hemodynamically stable throughout the entire ED visit and is without objective evidence or laboratory findings for acute process requiring urgent intervention or hospitalization. The patient and/or family had all the tests and diagnosis explained to them and were given both verbal and written discharge instructions. I (more content not included)... Normal [facility] Lipase SerPl-cCncon 03-11-20 24 Lipase [Catalytic activity/Vol] 15 U/L Low 16-61 [facility] Comment on above: Order Comment: Speci binta Type: BLOOD SPECIMEN Ordering Facility: [facility] Address: [address] [place] [address] Performed By: #### H CGED, 01611-6, 3040-3 #### [facility] CLIA [id number] [address] [place] [address] [place] Urinalysis complete panel (U )on 03-11-2024 Bacteria LM.HPF (Urine sed) [#/Area] Few Abnormal None Seen [facility] Comment on above: Order Comment: Rimma judd Type: URINE SPECIMEN Ordering Facility: [facility] Address: [address] [place] [id number] Performed By: #### 2 4356-8 #### [facility] CLIA [id number] [address] [place] [address] [place] Bilirubin Ql (U) Negative Normal Negative [facility] Comment on above: Order Comment: Speci men Type: URINE SPECIMEN Ordering Facility: [facility] Address: [address] [place] [address] Performed By: #### 2 4356-8 #### [facility] CLIA [id number] [address] Clarity (Unsp spec) Clear Normal Clear [facility] Comment on above: Order Comment: Speci men Type: URINE SPECIMEN Ordering Facility: [facility] Address: [address] [place] [address] Performed By: #### 2 4356-8 #### [facility] CLIA [id number] [address] OF [facility] Color (U) Yellow Normal Yellow [facility] Comment on above: Order Comment: Speci men Type: URINE SPECIMEN Ordering Facility: [facility] Address: [address] [place] [address] Performed By: #### 2 4356-8 #### [facility] CLIA [id number] [address] Epithelial cells LM.HPF (Urine sed) [#/Area] Moderate Normal [facility] Comment on above: Order Comment: Speci men Type: URINE SPECIMEN Ordering Facility: [facility] Address: [address] [place] [address] Performed By: #### 2 4356-8 #### [facility] CLIA [id number] [address] Glucose Test strip (U) [Mass/Vol] Negative Normal Negative [facility] Comment on above: Order Comment: Speci men Type: URINE SPECIMEN Ordering Facility: [facility] Address: [address] [place] [address] Performed By: #### 2 4356-8 #### [facility] CLIA [id number] [address] Hemoglobin Ql (U) 2+ Abnormal Negative [facility] Comment on above: Order Comment: Speci men Type: URINE SPECIMEN Ordering Facility: [facility] Address: [address] [place] [address] Performed By: #### 2 4356-8 #### [facility] CLIA [id number] [address] Ketones Ql (U) Negative Normal Negative [facility] Comment on above: Order Comment: Speci men Type: URINE SPECIMEN Ordering Facility: [facility] Address: [address] [place] [address] Performed By: #### 2 4356-8 #### [facility] CLIA [id number] [address] Leukocyte esterase Test strip Ql (U) 1+ Abnormal Negative [facility] Comment on above: Order Comment: Speci men Type: URINE SPECIMEN Ordering Facility: [facility] Address: [address] [place] [address] Performed By: #### 2 4356-8 #### [facility] CLIA [id number] [address] [place] [address] [place] Nitrite Ql (U) Negative Normal Negative [facility] Comment on above: Order Comment: Speci men Type: URINE SPECIMEN Ordering Facility: [facility] Address: [address] [place] [address] Performed By: #### 2 4356-8 #### [facility] CLIA [id number] [address] [place] [address] [place] pH (U) 7.0 [pH] Normal 5.0-8.0 [facility] Comment on above: Order Comment: Speci men Type: URINE SPECIMEN Ordering Facility: [facility] Address: [address] [place] [address] Performed By: #### 2 4356-8 #### [facility] CLIA [id number] [address] [place] [address] [place] Protein (U) [Mass/Vol] Negative Normal Negative [facility] Comment on above: Order Comment: Speci men Type: URINE SPECIMEN Ordering Facility: [facility] Address: [address] [place] [address] Performed By: #### 2 4356-8 #### [facility] CLIA [id number] [address] [place] [address] [place] RBC LM.HPF (Urine sed) [#/Area] 6-10 /HPF Abnormal 0-3 /HPF [facility] Comment on above: Order Comment: Speci men Type: URINE SPECIMEN Ordering Facility: [facility] Address: [address] [place] [address] Performed By: #### 2 4356-8 #### [facility] CLIA [id number] [address] [place] Specific gravity (U) [Rel density] 1.010 Normal 1.005-1.030 [facility] Comment on above: Order Comment: Speci men Type: URINE SPECIMEN Ordering Facility: [facility] Address: [address] [place] [address] Performed By: #### 2 4356-8 #### [facility] CLIA [id number] [address] [place] [address] [place] Urobilinogen Ql (U) 0.2 EU/dL Normal 0.2-1.0 EU/dL [facility] Comment on above: Order Comment: Speci men Type: URINE SPECIMEN Ordering Facility: [facility] Address: [address] [place] [address] Performed By: #### 2 4356-8 #### [facility] CLIA [id number] [address] [place] [address] [place] WBC LM.HPF (Urine sed) [#/Area] 0-5 /HPF Normal 0-5 /HPF [facility] Comment on above: Order Comment: Speci men Type: URINE SPECIMEN Ordering Facility: [facility] Address: [address] [place] [address] Performed By: #### 2 4356-8 #### [facility] CLIA [id number] [address] [place] [address] [place] HIV 1+2 Ab+HIV1 p24 Ag IA Ql Ordered By: Delilah Nowak on 12-25-2023 Interpretation and review of laboratory results Normal [facility] HIV-1 and HIV-2 Antigen-Anti body ScreenOrdered By: Delilah Nowak on 12-25-2023 HIV 1+2 Ab+HIV1 p24 Ag IA Ql Non-Reactive Nonreactive [facility] Comment on above: The specimen was non -reactive for HIV-1 and HIV-2 antibodies and p24 antigen using an FDA-cleared 4th generation HIV test. Based on this non-reactive screen result, further reflexive testing was not indicated and was, therefore, not performed. Hepatitis B surface antigeno n 12-23-2023 HBV surface Ag IA Ql Not detected Not Detected [facility] Hepatitis C antibodyon 12-22 HCV Ab IA Ql Not detected Not Detected [facility] Comment on above: Patients with DETECT ED Hepatitis C Ab results should have a new specimen submitted for supplemental testing with a Hepatitis C Quantitative RNA assay (viral load), if clinically indicated. No Panel Informationon 12-22 Interpretation and review of laboratory results Normal [facility] CNOVon 11-10-2023 CNOV Office Visit ([facility] ) LUL SANTIAGO ([id number]) 1 F Date Time Provider Department 11/10/23 2:15 PM ARTEMIO CHANDLER ORDRE During your visit today, we recorded the following information about you: Artemio Chandler MD 12/09/2023 10:07 AM Signed Chief Complaint: Back Pain History: 18 year old female here today for evaluation of back pain. Referred for our thoughts by Dr. Alexis Back discomfort has been occasionally as high as 6-12/12 Patient states that currently she is having minimal pain issues Pain in the past is exacerbated by: prolonged lifting. hyperextension bothers her Has seen PT in the past.. NSAID Trial: yes The patient does not complain of radicular lower extremity pain, also no numbness, no paresthesias, no motor weakness. No night pain. No bowel or bladder issues. No symptoms of neurogenic claudication Further review of systems notes No History of additional contributory Ophthalmic,auditory,wes matologic,rheumatologic , psychiatric, GI, , Cardiac, Pulmonary or Neurologic issues. PAST MEDICAL HISTORY Diagnosis Date Asthma GERD (gastroesophageal reflux disease) PAST SURGICAL HISTORY Procedure Laterality Date ALVEOLOPLASTY NOT IN CONJUNCTION WITH EXTRACTIONS - ONE TO THREE TEETH OR TOOTH SPACES, PER [facility] Current Outpatient Medications on File Prior to Visit Medication Sig Levonorgestrel-Ethinyl Estrad (LESSINA) 0.1mg - 20mcg per tablet Take 1 tablet by mouth once daily. (Patient not taking: Reported on 11/10/2023) escitalopram oxalate (LEXAPRO) 10 mg tablet Take 10 mg by mouth once daily. (Patient not taking: Reported on 11/10/2023) famotidine (PEPCID) 40 mg tablet Take 40 mg by mouth daily at bedtime. (Patient not taking: Reported on 11/10/2023) montelukast (SINGULAIR) 10 mg tablet Take 10 mg by mouth once daily. (Patient not taking: Reported on 11/10/2023) No current facility-administered medications on file prior to visit. Allergies: Penicillins FAMILY HISTORY Problem Relation Age of Onset other (Polyps benign) Mother Breast Cancer Maternal great-grandmother 62 Family History of scoliosis NA Examination: Lul Santiago is an alert and healthy appearing well hydrated and nourished 18 year old y/o female in no acute distress. Alert and oriented x 3. Normal mood and affect. External appearance of the eyes, ears and nose is normal. Hearing is grossly intact. Respirations are unlabored with normal chest expansion. Speech is clear and auditory acuity is grossly within normal limits. No torticollis is noted. Gaze is not disconjugate. Skin is free of lesions to include significant cafe au lait spots. Examination of the patient's gait shows it to be symmetric, non-antalgic and tandem. Lower extremity motor strength is 5/5 throughout. Deep tendon reflexes are 2+ and symmetric, toes are down going. No clonus. Extremities are warm and well perfused. Sensation is intact. Negative SLR On Seals forward bending test there is no rib prominence. Waist symmetry is nl. Shoulder symmetry is nl Motor is 5/5 DTR 2+ B symmetric Xray: L5 spondylolysis Gap in pars from long standing injury Risser 5 Impression: L5 spondylolysis Plan: Discussed operative management, but patient states she would prefer conservative management at this time. Discussed pars repair. Also discussed issues with fusion. Will pursue another round of PT for core Herzio 1000 for heavy pain Would like to see volume rendering CT to fully assess the pars size (gap) for potential repair if pain worsens. Artemio Chandler MD Referring Provider: SELF [200] Allergies As of Date: 11/10/2023 Noted Allergy Reaction PENICILLINS 11/10/2023 8 - GI Upset Date Reviewed: 11/10/2023 Reviewed by: Dread Gilbert - Fully Assessed Reason for Visit: New [689627] Pain [78] Primary Visit Diagnosis:Spondylolysis of lumbosacral region [M43.07] Order(s):CONSULT TO PHYSICAL THERAPY [9032] Order #: [id number]: 1 FUTURE CONSULT TO ORTHOTIC/PROSTHETIC [[id number]] Order #: [id number] Prescriptions as of 12/09/2023 - Levonorgestrel-Ethinyl Estrad (LESSINA) 0.1mg - 20mcg per tablet Take 1 tablet by mouth once daily. - escitalopram oxalate (LEXAPRO) 10 mg tablet Take 10 mg by mouth once daily. - famotidine (PEPCID) 40 mg tablet Take 40 mg by mouth daily at bedtime. - montelukast (SINGULAIR) 10 mg tablet Take 10 mg by mouth once daily. Problem List As Of Date: 11/10/2023 (None) Encounter Status:Closed by ARTEMIO CHANDLER on 12/09/23 [facility] POC URINALYSIS DIP STICK AUTO W/O MICROOrdered By: Donna Tinajero on 08-14-2023 Bilirubin, UA Negative [facility] h Blood, UA Moderate [facility] Glucose, UA Negative [facility] Interpretation and review of laboratory results Abnormal [facility] Ketones, UA (mg/dL) Positive Abnormal Negative mg/dL S [facility] Leukocytes, UA Trace [facility] th Nitrite, UA Negative [facility] pH, UA 6.0 [facility] Protein, UA Negative [facility] Spec Grav, UA >1.030 [facility], [facility] 0.2 [facility] Radiology Study observation (narrative) [facility] US Thyroidon 06-23-2021 US Thyroid Clinical History: Ne ck lump for several years. Technique: Sonography of the submandibular regions was performed. Images were obtained and stored in a permanent archive. Comparison: None. RESULT: Limited ultrasound performed. On the images labeled right submandibular region there is a hypoechoic lobular lesion measuring approximately 1.1 x 1.7 x 0.9 cm, probably representing lymph node but nonspecific. On the images labeled left submandibular region there is a similar appearing hypoechoic lesion measuring 1.0 x 1.1 x 0.6 cm, probably representing a lymph node but also nonspecific. IMPRESSION: Nonspecific lesions in the submandibular regions bilaterally, probably representing lymph nodes. Recommend clinical correlation. If changing in size or not resolving, could consider dedicated CT of the neck with contrast for further evaluation. Report reported and signed by Sha Olivas on 06/23/2021 1619 Normal [facility] Specialist GROUP A STREP,PCRon 12-12-19 21 GROUP A STREP,PCR Not detected Normal Not Detected [facility] Comment on above: Result Comment: This test and its performance have been Validated by [facility] Laboratory using analyte specific reagents (ASR). It has not been cleared or approved by the U.S. Food and Drug Administration. The FDA has determined that such clearance or approval is not necessary. Performed By: #### G APC1 #### [facility] [address] [place] [id number] GROUP A STREP, PCRon 021 S. pyogenes Ag Ql (Throat) Not detected See Below [facility] Work Phone: Comment on above: SOURCE: ThroatRefere nce Range: Not Detected This test and its performance have been Validated by [facility] Laboratory using analyte specific reagents (ASR). It has not been cleared or approved by the U.S. Food and Drug Administration. The FDA has determined that such clearance or approval is not necessary. GROUP A STREP,PCRon 12-11-19 21 Lab Specimen Source Throat Normal [facility] Comment on above: Performed By: #### G APC1 #### [facility] [address] [place] [address] Office Visit (Urgent Care)on 12-10-2020 Follow-up visit Diagnoses/Problems Assessed ETD (eustachian tube dysfunction) (381.81) (H69.80) Acute pharyngitis (462) (J02.9) Orders Acute pharyngitis IO Rapid Strep; Status:Active - Perform Order; Requested for:[id number]; Perform:In Office; Due:10Mar2021;Ordered; For:Acute pharyngitis; Ordered By:Thom Molina; Provider Impressions 1. Sore throat and right otalgia- benign exam, check rapid strep (NEG). Suspect eustachian tube dysfunction. Start Flonase, follow-up with boot trimmer Chief Complaint Chief Complaints Ear Pain Headache Sore Throat History of Present Illness 15-year-old female complains of 2 to 3 days of some right-sided headache, right earache, mild sore throat. No fever chills, not runny or stuffy, right greater than left earache. Use Tylenol somewhat relief. Has history of seasonal allergies, use and Singulair right now but patient does not think it is effective Active Problems Problems Acute left otitis media (382.9) (H66.92) Acute pharyngitis (462) (J02.9) Sore throat (462) (J02.9) Allergies Medication No Known Drug Allergies Recorded By: Candy Gillette; 06/09/2019 12:19:40 PM Current Meds Medication NameInstruction Amoxicillin-Pot Clavulanate 875-125 MG Oral TabletTAKE 1 TABLET TWICE DAILY AFTER MEALS Vitals Vital Signs Recorded: [id number] 03:30PM Ewxhihqzucq63.9 F Heart Rate82 Vkarsccwdwd01 Vxllmril528 Qcbnslssp81 Qceagk936 lb 7.20 oz 2-20 Weight Zgqkvqxavt56 % O2 Qwhcuwevor53 Pain Scale7 Physical Exam General- No apparent distress, well appearing Cardiovascular- regular rate and rhythm, no gallops, murmurs or rubs Lungs- clear to auscultation bilaterally, no wheezing or rhonchi ENT- Normal bilateral tympanic membranes, normal pharynx Skin- no rashes noted Signatures Electronically signed by : Thom Molina MD; Dec 10 2020 3:55PM EST (Author) Normal [facility] CR Spine Lumbosacral 2 or 3 Viewson 12-13-2019 CR Spine Lumbosacral 2 or 3 Views Patient Name: LUL SANTIAGO Diagnostic Radiology Exam Date/Time 12/13/2019 13:53:30 EDT Exam CR Spine Lumbosacral 2 or 3 Views Ordering Physician DENNY ORDONEZ DIANNE ELIZABETH Accession Number [id number] CPT4 Codes 89653 () Reason For Exam PAIN Report Lumbar spine CLINICAL INDICATION: Back pain radiating down right leg Standing AP, lateral and lumbosacral spot views were obtained. There is broad-based mild levoconvex curvature at the thoracolumbar junction. There are five nonrib-bearing lumbar-type vertebra. Vertebral body and intervertebral disc spaces appear normal. There is no spondylolisthesis. Lateral view shows lucency through the L5 pars region suspicious for spondylolysis. IMPRESSION: Appearance is suspicious for L5 spondylolysis but no associated spondylolisthesis Shallow broad-based levoconvex curvature thoracolumbar junction Report Dictated on Final Dictating Physician: MD MINAYA DIANE Signed Date and Time: 12/13/2019 4:30 pm Signed by: MD MINAYA DIANE Transcribed Date and Time: 12/13/2019 4:31 Normal [facility] CR Spine Thoracic 3 Viewson 12-13-2019 CR Spine Thoracic 3 Views Patient Name: LUL SANTIAGO Diagnostic Radiology Exam Date/Time 12/13/2019 13:53:30 EDT Exam CR Spine Thoracic 3 Views Ordering Physician DENNY ORDONEZ DIANNE ELIZABETH Accession Number [id number] CPT4 Codes 18912 () Reason For Exam PAIN Report Thoracic spine CLINICAL INDICATION: Pain AP, lateral and swimmer's views were obtained with the patient standing. There are 12 rib bearing thoracic vertebra. No compression deformities are noted and intervertebral disc heights appear maintained. There is shallow broad-based levoconvex curvature at the thoracolumbar junction. Pedicles and posterior arches appear intact. IMPRESSION: No acute osseous abnormality Report Dictated on Final Dictating Physician: MD MINAYA DIANE Signed Date and Time: 12/13/2019 4:31 pm Signed by: MD MINAYA DIANE Transcribed Date and Time: 12/13/2019 4:32 Normal [facility] XR LUMBAR SPINE (2-3 VIEWS)o n 12-13-2019 Patient Name: LUL SANTIAGO ---Diagnostic Radiology--- Exam Date/Time 12/13/2019 13:53:30 EDT Exam CR Spine Lumbosacral 2 or 3 Views Ordering Physician DENNY ORDONEZ DIANNE ELIZABETH Accession Number [id number] CPT4 Codes 56602 () Reason For Exam PAIN Report Lumbar spine CLINICAL INDICATION: Back pain radiating down right leg Standing AP, lateral and lumbosacral spot views were obtained. There is broad-based mild levoconvex curvature at the thoracolumbar junction. There are five nonrib-bearing lumbar-type vertebra. Vertebral body and intervertebral disc spaces appear normal. There is no spondylolisthesis. Lateral view shows lucency through the L5 pars region suspicious for spondylolysis. IMPRESSION: Appearance is suspicious for L5 spondylolysis but no associated spondylolisthesis Shallow broad-based levoconvex curvature thoracolumbar junction Report Dictated on --- Final --- Dictating Physician: MD MINAYA DIANE Signed Date and Time: 12/13/2019 4:30 pm Signed by: MD MINAYA DIANE Transcribed Date and Time: 12/13/2019 4:31 [place], [place] [facility] Incoming Radiology Results From [facility] - 12/13/2019 4:31 PM EDT Patient Name: LUL SANTIAGO ---Diagnostic Radiology--- Exam Date/Time 12/13/2019 13:53:30 EDT Exam CR Spine Lumbosacral 2 or 3 Views Ordering Physician DENNY ORDONEZ DIANNE ELIZABETH Accession Number [id number] CPT4 Codes 03796 () Reason For Exam PAIN Report Lumbar spine CLINICAL INDICATION: Back pain radiating down right leg Standing AP, lateral and lumbosacral spot views were obtained. There is broad-based mild levoconvex curvature at the thoracolumbar junction. There are five nonrib-bearing lumbar-type vertebra. Vertebral body and intervertebral disc spaces appear normal. There is no spondylolisthesis. Lateral view shows lucency through the L5 pars region suspicious for spondylolysis. IMPRESSION: Appearance is suspicious for L5 spondylolysis but no associated spondylolisthesis Shallow broad-based levoconvex curvature thoracolumbar junction Report Dictated on --- Final --- Dictating Physician: MD MINAYA DIANE Signed Date and Time: 12/13/2019 4:30 pm Signed by: MD MINAYA DIANE Transcribed Date and Time: 12/13/2019 4:31 [place], [place] XR Spine Thoracic 3 VWon Patient Name: LUL SANTIAGO ---Diagnostic Radiology--- Exam Date/Time 12/13/2019 13:53:30 EDT Exam CR Spine Thoracic 3 Views Ordering Physician DENNY ORDONEZ DIANNE ELIZABETH Accession Number [id number] CPT4 Codes 86193 () Reason For Exam PAIN Report Thoracic spine CLINICAL INDICATION: Pain AP, lateral and swimmer's views were obtained with the patient standing. There are 12 rib bearing thoracic vertebra. No compression deformities are noted and intervertebral disc heights appear maintained. There is shallow broad-based levoconvex curvature at the thoracolumbar junction. Pedicles and posterior arches appear intact. IMPRESSION: No acute osseous abnormality Report Dictated on --- Final --- Dictating Physician: MD MINAYA DIANE Signed Date and Time: 12/13/2019 4:31 pm Signed by: MD MINAYA DIANE Transcribed Date and Time: 12/13/2019 4:32 [place], [place] [facility] Incoming Radiology Results From [facility] - 12/13/2019 4:32 PM EDT Patient Name: LUL SANTIAGO ---Diagnostic Radiology--- Exam Date/Time 12/13/2019 13:53:30 EDT Exam CR Spine Thoracic 3 Views Ordering Physician DENNY ORDONEZ DIANNE ELIZABETH Accession Number [id number] CPT4 Codes 48961 () Reason For Exam PAIN Report Thoracic spine CLINICAL INDICATION: Pain AP, lateral and swimmer's views were obtained with the patient standing. There are 12 rib bearing thoracic vertebra. No compression deformities are noted and intervertebral disc heights appear maintained. There is shallow broad-based levoconvex curvature at the thoracolumbar junction. Pedicles and posterior arches appear intact. IMPRESSION: No acute osseous abnormality Report Dictated on --- Final --- Dictating Physician: MD MINAYA DIANE Signed Date and Time: 12/13/2019 4:31 pm Signed by: MD MINAYA DIANE Transcribed Date and Time: 12/13/2019 4:32 [facility], [place] Progress Noteon 05-18-2018 [employer] Estate [employer] Analyst Authentication Interface Message Text Patient ID: Lul Santiago is a 13 y.o. female. Her chief complaint(s)include: Shoulder Pain (left side,after fell 2 days ago).Assessment:1. Injury of left shoulder, initial encounter2. Acute pain of left shoulderPlan:Lul was seen today for shoulder pain.Diagnoses and all orders for this visit:Injury of left shoulder, initial encounterAcute pain of left shoulder- X-Ray Shoulder 2 or More Views LeftX-Ray Shoulder 2 or More Views LeftFinal ResultIMPRESSION:Normal radiographic appearance of the left shoulder.This report has been created using voice recognition softwareXray negative for fracture.HUFF therapy for shoulder strain, rotator cuff strain.Follow up reviewed.Subjective:She is accompanied by her mother.Shoulder PainThe onset has been acute. The duration has been 2 days. The pattern ispersistent. The course is recurrent. Upper extremity pain/injury is located inthe left shoulder. Mechanism of injury: fall (fell on some ice outside onto herleft side and shoulder).The pain is characterized as a dull ache. Pain is aggravated by movement.Associated symptoms include painful ROM. Associated symptoms do not includeswelling, joint swelling, decreased ROM, erythema, bruising,laceration/abr asion, popping/clicking and numbness/tingling. Prior managementinclude(s) NSAID use and ice. There have been no prior visits.There have been no previous diagnostic tests.Primary Care Review of SystemsObjective:Physic al ExamNursing note reviewed.Constitutional : She appears well. She is active. No distress.HENT:Head: Atraumatic.Cardiovascul ar: Normal rate and regular rhythm.Heart murmur not heard.Pulmonary/Chest: Effort normal and breath sounds normal. There is normal airentry. She has no wheezes.Abdominal: Soft. Bowel sounds are normal. She exhibits no distension. There isno tenderness.Musculoskele airam: Left shoulder: She exhibits decreased range of motion and tenderness(generalized tenderness over the glenohumoral joint. full rom painful inabduction past 45 degrees. ). She exhibits no swelling, no effusion, normalpulse and normal strength.Neurological: She is alert.Skin: Capillary refill takes less than 3 seconds. Skin is warm and dry.Vitals reviewed: Pulse 68, temperature 37.4 C (99.3 F), resp. rate 24, ddvfaw02.6 kg. Normal [facility] SHOULDER 2 OR MORE VIEWS LEF Ton 05-18-2018 Thyrotropin Qn PROCEDURE: SHOULDER 2 OR MORE VIEWS LEFTCLINICAL HISTORY: left shoulder painCOMPARISON: None.FINDINGS:There is no visible fracture or other osseous abnormality. The glenohumeral andacromioclavicular joints have a normal appearance. The soft tissues areradiographically normal.IMPRESSION:Naomie l radiographic appearance of the left shoulder.This report has been created using voice recognition softwareSigned by: Dr. Aquiles Dukes at 05/18/2018 18:29 Normal [facility] SHOULDER COMPLETE MIN 2 VIEW S UNILATERAL [id number] 05-18-2018 Protein mass conc Performed at [facility] APPROVED BY: AQUILES DUKES MD PROCEDURE: SHOULDER 2 OR MORE VIEWS LEFT CLINICAL HISTORY: left shoulder pain COMPARISON: None. FINDINGS:There is no visible fracture or other osseous abnormality. The glenohumeral and acromioclavicular joints have a normal appearance. The soft tissues are radiographically normal. IMPRESSION:Normal radiographic appearance of the left shoulder. This report has been created using voice recognition software Normal [facility] Vital Signs Date Time Vital Sign Value Performing Clinician Faci mark 02-17-2025 19:05-0400 Body height 160 cm Shaw Sood MD Work Phone: [facility] 02-17-2025 19:05-0400 Body mass index (BMI) [Ratio] 21.79 kg/m2 Shaw Sood MD Work Phone: [facility] 02-17-2025 19:05-0400 Body temperature 98.4 [degF] Shaw Sood MD Work Phone: [facility] 02-17-2025 19:05-0400 Body weight 55.79 kg Shaw Sood MD Work Phone: [facility] 02-17-2025 19:05-0400 Diastolic blood pressure 87 mm[Hg] Shaw Sood MD Work Phone: [facility] 02-17-2025 19:05-0400 Heart rate 75 /min Shaw Sood MD Work Phone: [facility] 02-17-2025 19:05-0400 Respiratory rate 16 /min Shaw Sood MD Work Phone: [facility] 02-17-2025 19:05-0400 SaO2% (BldA) [Mass fraction] 98 % Shaw Sood MD Work Phone: [facility] 02-17-2025 19:05-0400 Systolic blood pressure 130 mm[Hg] Shaw Sood MD Work Phone: [facility] 02-04-2025 08:09-0400 Body height 160 cm Julius Yanes APRN-BILINGUAL MANAGER Work Phone: [facility] 02-04-2025 08:09-0400 Body mass index (BMI) [Ratio] 21.61 kg/m2 Julius Yanes APRN-BILINGUAL MANAGER Work Phone: [facility] 02-04-2025 08:09-0400 Body temperature 98.6 [degF] Julius Yanes APRN-BILINGUAL MANAGER Work Phone: [facility] 02-04-2025 08:09-0400 Body weight 55.34 kg Julius Yanes APRN-ESTELITA Work Phone: [facility] 02-04-2025 08:09-0400 Diastolic blood pressure 80 mm[Hg] Julius Yanes APRN-BILINGUAL MANAGER Work Phone: [facility] 02-04-2025 08:09-0400 Heart rate 104 /min Julius Pacefrankie VICENTE-BILINGUAL MANAGER Work Phone: [facility] 02-04-2025 08:09-0400 Respiratory rate 22 /min Julius Yanes JULES-BILINGUAL MANAGER Work Phone: [facility] 02-04-2025 08:09-0400 SaO2% (BldA) [Mass fraction] 98 % Julius Yanes TRUCKER-BILINGUAL MANAGER Work Phone: [facility] 02-04-2025 08:09-0400 Systolic blood pressure 120 mm[Hg] Julius Joaquín VICENTE-BILINGUAL MANAGER Work Phone: [facility] 12-16-2024 08:08-0400 Body height 160 cm Indira Deleon MD Work Phone: [facility] [employer] 12-16-2024 08:08-0400 Body mass index (BMI) [Ratio] 21.61 kg/m2 Indira Deleon MD Work Phone: [facility] [employer] 12-16-2024 08:08-0400 Body weight 55.34 kg Indira Deleon MD Work Phone: [facility] [employer] 12-16-2024 08:08-0400 Diastolic blood pressure 78 mm[Hg] Indira Deleon MD Work Phone: [facility] [employer] 12-16-2024 08:08-0400 Heart rate 79 /min Indira Deleon MD Work Phone: [facility] [employer] 12-16-2024 08:08-0400 Systolic blood pressure 122 mm[Hg] Indira Deleon MD Work Phone: [facility] [employer] 09-23-2024 14:08-0400 Body height 160 cm Lilia Garrett MD Work Phone: [facility] [employer] 09-23-2024 14:08-0400 Body mass index (BMI) [Ratio] 21.63 kg/m2 Lilia Garrett MD Work Phone: [facility] 09-23-2024 14:08-0400 Body weight 55.38 kg Lilia Garrett MD Work Phone: [facility] 09-23-2024 14:08-0400 Diastolic blood pressure 76 mm[Hg] Lilia Garrett MD Work Phone: [facility] 09-23-2024 14:08-0400 Heart rate 93 /min Lilia Garrett MD Work Phone: [facility] 09-23-2024 14:08-0400 Systolic blood pressure 122 mm[Hg] Lilia Garrett MD Work Phone: [facility] 09-03-2024 18:13-0400 Body temperature 99.39 [degF] Nancy Mcnamara TRUCKER.BILINGUAL MANAGER Work Phone: [facility] 09-03-2024 18:13-0400 Body weight 56.05 kg Nancy Mcnamara TRUCKER.BILINGUAL MANAGER Work Phone: [facility] 09-03-2024 18:13-0400 Diastolic blood pressure 79 mm[Hg] Nancy Mcnamara TRUCKER.BILINGUAL MANAGER Work Phone: [facility] 09-03-2024 18:13-0400 Heart rate 103 /min Nancy Mcnamara TRUCKER.BILINGUAL MANAGER Work Phone: [facility] 09-03-2024 18:13-0400 Respiratory rate 16 /min Nancy Mcnamara TRUCKER.BILINGUAL MANAGER Work Phone: [facility] 09-03-2024 18:13-0400 SaO2% (BldA) [Mass fraction] 97 % Nancy Mcnamara TRUCKER.BILINGUAL MANAGER Work Phone: [facility] 09-03-2024 18:13-0400 Systolic blood pressure 128 mm[Hg] Nancy Mcnamara TRUCKER.BILINGUAL MANAGER Work Phone: [facility] 07-08-2024 16:30-0500 Body weight 55.85 kg Jairo Atkins PA-C Work Phone: [facility] 07-08-2024 16:30-0500 Diastolic blood pressure 71 mm[Hg] Jairo Justinaugh PA-C Work Phone: [facility] 07-08-2024 16:30-0500 Heart rate 115 /min Jairo Justinaugh PA-C Work Phone: [facility] 07-08-2024 16:30-0500 Respiratory rate 16 /min Jairo Justinaugh PA-C Work Phone: [facility] 07-08-2024 16:30-0500 SaO2% (BldA) [Mass fraction] 98 % Jairo Justinaugh PA-C Work Phone: [facility] 07-08-2024 16:30-0500 Systolic blood pressure 123 mm[Hg] Jairo Slabaugh PA-C Work Phone: [facility] 06-04-2024 15:18-0500 Body height 160 cm Chikis Tony PA-C Work Phone: [facility] 06-04-2024 15:18-0500 Body mass index (BMI) [Ratio] 21.54 kg/m2 Chikis Tony PA-C Work Phone: [facility] 06-04-2024 15:18-0500 Body temperature 98.6 [degF] Chikis Tony PA-C Work Phone: [facility] 06-04-2024 15:18-0500 Body weight 55.16 kg Chikis Tony PA-C Work Phone: [facility] 06-04-2024 15:18-0500 Diastolic blood pressure 76 mm[Hg] Chikis Tony PA-C Work Phone: [facility] 06-04-2024 15:18-0500 Heart rate 100 /min Chikis Tony PA-C Work Phone: [facility] 06-04-2024 15:18-0500 Respiratory rate 18 /min Chikis Tony PA-C Work Phone: [facility] 06-04-2024 15:18-0500 SaO2% (BldA) [Mass fraction] 98 % Chikis Jimenez PA-C Work Phone: [facility] 06-04-2024 15:18-0500 Systolic blood pressure 113 mm[Hg] Chikis KINCAID-Annabel Work Phone: [facility] 11-08-2023 08:22-0400 Body height 160 cm Indira Deleon MD Work Phone: [facility] [employer] 11-08-2023 08:22-0400 Body mass index (BMI) [Ratio] 19.84 kg/m2 Indira Deleon MD Work Phone: [facility] [employer] 11-08-2023 08:22-0400 Body weight 50.8 kg Indira Deleon MD Work Phone: [facility] [employer] 11-08-2023 08:22-0400 Diastolic blood pressure 75 mm[Hg] Indira Deleon MD Work Phone: [facility] [employer] 11-08-2023 08:22-0400 Heart rate 90 /min Indira Deleon MD Work Phone: [facility] [employer] 11-08-2023 08:22-0400 Systolic blood pressure 126 mm[Hg] Indira Deleon MD Work Phone: [facility] [employer] 08-14-2023 15:10-0400 Body height 160 cm Luna 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 Work Phone: [facility] [employer] 08-14-2023 15:10-0400 Body mass index (BMI) [Ratio] 19.84 kg/m2 Luna 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 Work Phone: [facility] [employer] 08-14-2023 15:10-0400 Body weight 50.8 kg Luna 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 Work Phone: [facility] [employer] 08-14-2023 15:10-0400 Diastolic blood pressure 70 mm[Hg] Luna 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 Work Phone: [facility] [facility] [employer] 08-14-2023 15:10-0400 Heart rate 86 /min Luna 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 Work Phone: [facility] [employer] 08-14-2023 15:10-0400 Systolic blood pressure 125 mm[Hg] Luna 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 Work Phone: [facility] [employer] 01-03-2023 11:08-0400 Body height 160 cm Oscar Ramos MD Work Phone: [facility] [employer] 01-03-2023 11:08-0400 Body mass index (BMI) [Ratio] 21.43 kg/m2 Oscar Ramos MD Work Phone: [facility] [employer] 01-03-2023 11:08-0400 Body weight 54.88 kg Oscar Ramos MD Work Phone: [facility] [employer] 01-03-2023 11:08-0400 Diastolic blood pressure 81 mm[Hg] Oscar Ramos MD Work Phone: [facility] [employer] 01-03-2023 11:08-0400 Heart rate 74 /min Oscar Ramos MD Work Phone: [facility] [employer] 01-03-2023 11:08-0400 Systolic blood pressure 120 mm[Hg] Oscar Ramos MD Work Phone: [facility] [employer] 06-21-2022 08:45-0500 Body height 160 cm Oscar Ramos MD Work Phone: [facility] [employer] 06-21-2022 08:45-0500 Body mass index (BMI) [Ratio] 21.27 kg/m2 Oscar Ramos MD Work Phone: [facility] [employer] 06-21-2022 08:45-0500 Body temperature 98.4 [degF] Oscar Ramos MD Work Phone: [facility] [employer] 06-21-2022 08:45-0500 Body weight 54.48 kg Oscar Ramos MD Work Phone: [facility] 06-21-2022 08:45-0500 Diastolic blood pressure 64 mm[Hg] Oscar Ramos MD Work Phone: [facility] 06-21-2022 08:45-0500 Systolic blood pressure 102 mm[Hg] Oscar Ramos MD Work Phone: [facility] 12-10-2020 15:30-0400 Body temperature 97.9 [degF] Cyndie Lishnevski Work Phone: [facility] Work Phone: 12-10-2020 15:30-0400 Body weight 50.1 kg Cyndie Lishnevski Work Phone: [facility] Work Phone: 12-10-2020 15:30-0400 Diastolic blood pressure 75 mm[Hg] Cyndie Lishnevski Work Phone: [facility] Work Phone: 12-10-2020 15:30-0400 Heart rate 82 /min Cyndie Lishnevski Work Phone: [facility] Work Phone: 12-10-2020 15:30-0400 Respiratory rate 20 /min Cyndie Lishnevski Work Phone: [facility] Work Phone: 12-10-2020 15:30-0400 SaO2% (BldA) [Mass fraction] 98 % Cyndie Lishnevski Work Phone: [facility] Work Phone: 12-10-2020 15:30-0400 Systolic blood pressure 111 mm[Hg] Cyndie Lishnevski Work Phone: [facility] Work Phone: 12-10-2020 15:30-0400 23 1 Cyndie Mcdonough Work Phone: [facility] Work Phone: Comment on above: 2-20_WPerc 12-10-2020 15:30-0400 7 1 Cyndie Mcdonough Work Phone: [facility] Work Phone: Comment on above: [employer] Encounters Encounter Date Encounter Type Care Provider Facility Start: 03-28-2025 ambulatory Nidia Hui cility:[facility] Start: 03-27-2025 Encounter for other preprocedural examination Rafael Friend [facility] Start: 02-21-2025 End: 02-21-2025 Patient encounter procedure Nakita KINCAID [facility] Work Phone: Start: 02-21-2025 End: 02-21-[address] Nidia Zhao DO Work Phone: [facility] Start: 02-17-2025 End: 02-17-2025 Office outpatient visit 15 minutes Shaw Sood MD Work Phone: [facility] Comment on above: Paronychia of right little finger (Primary Dx) Start: 02-04-2025 End: 02-04-2025 [facility]: [facility] Comment on above: COVID-19 (Primary Dx ); Acute non-recurrent pansinusitis; Congestion of nasal sinus; Postviral fatigue syndrome; Exposure to COVID-19 virus Start: 12-19-2024 End: 02-18-2025 Follow-up encounter Indira Deleon MD Work Phone: [facility] Obstetrics and Gynecology [facility] Comment on above: Pap Smear, Trichomon as vaginalis RNA, Qualitative, TMA, Female, Chlamydia/Neisseria gonorrhoeae RNA, TMA, [facility] Start: 12-16-2024 End: 12-16-2024 [facility] Start: 12-16-2024 End: 12-16-2024 Encounter for gynecological examination (general) (routine) without abnormal findings INDIRA DELEON [facility] Start: 12-16-2024 End: 12-16-2024 Initial preventive medicine new pt age 18-39yrs Indira Deleon MD Work Phone: [facility] Obstetrics and Gynecology [facility] Comment on above: Well woman exam with routine gynecological exam (Primary Dx); Cervical cancer screening; Screening examination for STI; Possible exposure to STI Start: 12-16-2024 End: 12-16-2024 Patient encounter procedure Indira Deleon MD Work Phone: [facility] Work Phone: Start: 11-15-2024 ambulatory [facility] Facili ty:[facility] Start: 11-15-2024 End: 11-15-2024 Subsequent hospital visit by physician [facility] Work Phone: Radiology Comment on above: Epigastric pain [R10 .13] Start: 11-14-2024 End: 11-15-2024 Refill Indira Deleon MD Work Phone: [facility] Obstetrics and Gynecology [facility] Start: 09-23-2024 End: 09-23-2024 Office outpatient new 45 minutes Lilia Garrett MD Work Phone: [facility] [place] Comment on above: Allergic rhinitis, u nspecified seasonality, unspecified trigger (Primary Dx); Deviated nasal septum; Hypertrophy of both inferior nasal turbinates; Laryngopharyngeal reflux (LPR); Temporomandibular joint disease; Eustachian tube dysfunction, bilateral Start: 09-23-2024 End: 09-23-2024 ambulatory LILIA GARRETT [facility] Start: 09-03-2024 End: 09-03-2024 ambulatory SELF Facility:[facility] Start: 09-03-2024 End: 09-03-2024 Office outpatient visit 25 minutes Nancy Mcnamara APRN.CNP Work Phone: [facility] Comment on above: Viral upper respirat ory tract infection with cough (Primary Dx); SOB (shortness of breath) Start: 08-16-2024 ambulatory NIDIA Clementi ty:[facility] Start: 08-16-2024 End: 08-16-2024 Subsequent hospital visit by physician [facility] (1.5t) Radiology Comment on above: [place] Start: 08-01-2024 End: 08-01-2024 ambulatory NIDIA ZHAO [facility] Start: 07-29-2024 End: 07-29-2024 ambulatory Nidia Zhao Work Phone: [facility] Comment on above: Rathke's pouch cyst (HCC) (Primary Dx) Start: 07-08-2024 End: 07-08-2024 ambulatory NIDIA ZHAO Facility:[facility] Start: 07-08-2024 End: 07-08-2024 Patient encounter procedure Jairo Atkins PA-C Work Phone: [facility] Comment on above: Dysuria (Primary Dx) ; Vaginal odor Start: 07-02-2024 End: 07-02-2024 [facility] Start: 07-02-2024 End: 07-02-2024 Patient encounter procedure Nell Goddard RN [facility] Clinical Communication Start: 07-01-2024 End: 09-30-2024 Transcribe Orders Jake Clayton Work Phone: [facility] Comment on above: Psoriasis vulgaris ( Primary Dx) Start: 06-30-2024 ambulatory NIDIA Clementi ty:[facility] Start: 06-30-2024 End: 06-30-2024 Subsequent hospital visit by physician [facility] (1.5t) Radiology Comment on above: Tremor, unspecified [R25.1] Start: 06-04-2024 End: 06-04-2024 Office outpatient new 45 minutes Chikis Jimenez PA-C Work Phone: [facility] Comment on above: Mild intermittent as thma with exacerbation (HHS-HCC) (Primary Dx); Flu-like symptoms; Bronchitis Start: 03-11-2024 End: 03-11-2024 Emergency department patient visit NIDIA ZHAO Facility:[facility] Start: 12-23-2023 End: 03-23-2024 Transcribe Orders Jake Clayton Work Phone: [facility] Comment on above: Psoriasis vulgaris ( Primary Dx) Start: 11-10-2023 End: 11-10-2023 ambulatory ARTEMIO CHANDLER Facility:[facility] Start: 11-10-2023 End: 11-10-2023 Patient encounter procedure Artemio Chandler MD Work Phone: Orthopaedics Comment on above: Spondylolysis of lum bosacral region (Primary Dx) Start: 11-08-2023 End: 11-08-2023 Initial preventive medicine new pt age 18-39yrs Indira Deleon MD Work Phone: [facility] Obstetrics & Gynecology Comment on above: Well woman exam with routine gynecological exam (Primary Dx); Screen for STD (sexually transmitted disease); Cyst of right ovary Start: 11-08-2023 End: 11-08-2023 Patient encounter procedure Indira Deleon MD Work Phone: [facility] [employer] Work Phone: Start: 10-28-2023 Telephone encounter Lunaslava carrillo 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 Work Phone: [facility] Urology Comment on above: Test Scheduling Start: 10-21-2023 Telephone encounter Luna Arnie davisit 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 Work Phone: [facility] Central Scheduling Comment on above: Scheduling Start: 10-13-2023 End: 10-13-2023 Subsequent hospital visit by physician [facility] Work Phone: Radiology Comment on above: Unspecified ovarian cyst, right side [N83.201] Start: 09-11-2023 Refill Ghazal KINCAID Work Phone: [facility] Pelvic Health Comment on above: control counse ling Start: 09-06-2023 Telephone encounter Luna carrillo 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 Work Phone: [facility] Urology Comment on above: Results Start: 08-14-2023 End: 08-14-2023 Office outpatient new 45 minutes Luna Postletgonzalo 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 Work Phone: [facility] Urology Comment on above: Dysuria (Primary Dx) ; Pelvic floor dysfunction; Interstitial cystitis; Microhematuria Start: 07-24-2023 End: 07-24-2023 Subsequent hospital visit by physician [facility] Start: 05-04-2023 Telephone encounter Urology Work Phone: [facility] Urology Start: 01-03-2023 End: 01-03-2023 Office outpatient visit 25 minutes Oscar Ramos MD Work Phone: [facility] Pelvic Health Comment on above: Vulvodynia (Primary Dx); Pelvic floor dysfunction; Dyspareunia in female Start: 06-30-2022 Telephone encounter Una reyes MD Work Phone: [facility] Comment on above: Returning call Start: 06-21-2022 End: 06-21-2022 Office outpatient visit 25 minutes Oscar Ramos MD Work Phone: [facility] Comment on above: Vaginal discharge (P rimary Dx); Chronic vaginitis; Vulvodynia; Pelvic floor dysfunction Start: 12-12-2020 Chart Update Cyndie pires Work Phone: [facility] Work Phone: Start: 12-13-2019 End: 12-13-2019 Subsequent hospital visit by physician Estefanía Ordonez Work Phone: [facility] Start: 05-18-2018 End: 05-19-2018 Patient encounter procedure COURTNEY MORENO [facility] Procedures Date Procedure Procedure Detail Performing Clinician Start: 02-04-2025 Iadna respiratry pro be & rev trnscr 3-5 targets [facility]anes [facility] Work Phone: Start: 02-04-2025 SARS-CoV-2 (COVID-19 ) Ag [Presence] in Respiratory specimen by Rapid immunoassay [facility] Work Phone: Start: 12-16-2024 Microscopic observat ion [Identifier] in Cervix by Cyto stain Indira Deleon MD Work Phone: Start: 08-16-2024 Mri brain brain stem w/o w/contrast material [facility] Provider Start: 07-08-2024 Urnls dip stick/tabl et rgnt auto w/o microscopy Jairo Atkins PA-C Work Phone: Start: 06-30-2024 Mri brain brain stem w/o w/contrast material [facility] Provider Start: 06-04-2024 Iaadiadoo influenza Patrick Buckner MD Work Phone: Start: 08-14-2023 Urnls dip stick/tabl et rgnt auto w/o microscopy Luna Postlethvibhait TRUCKER [facility] Work Phone: Start: 12-13-2019 Radex spine lumbosac ral 2/3 views Estefanía Ordonez Work Phone: Start: 12-13-2019 Radex spine thoracic 3 views Estefanía Ordonez Work Phone: Plan of Treatment Date Care Activity Detail Author Start: 2078 RSV Immunization for Adults (1 - 1-dose 75+ series) RSV Immunization for Adults (1 - 1-dose 75+ series) [facility] Start: 2063 RSV Immunization aged 60 or older (1 - 1-dose 60+ series) RSV Immunization aged 60 or older (1 - 1-dose 60+ series) [facility] Start: 2053 Zoster Vaccines (1 of 2) Zoster Vaccines (1 of 2) [facility] Start: 01-01-2033 DTaP/Tdap/Td Vaccines (8 - Td or Tdap) DTaP/Tdap/Td Vaccines (8 - Td or Tdap) [facility] Start: 01-01-2033 Urine microalbumin profile DTaP,Tdap,Td Vaccine (8 - Td or Tdap) [facility] Start: 12-17-2027 Screening for malignant neoplasm of cervix [facility] Start: 12-22-2025 End: 12-22-2025 Patient encounter procedure 12/22/2025 8:00 AM EDT Office Visit [facility] Obstetrics and Gynecology - [place] [address] [place] [address] Indira Deleon MD [address] [facility] [address] [place] [address] [facility] Obstetrics and Gynecology [facility] Start: 12-17-2025 Yearly Adult Physical Yearly Adult Physical [facility] Start: 12-13-2025 DTaP/Tdap/Td vaccine (7 - Td) DTaP/Tdap/Td vaccine (7 - Td) [place] Start: 12-13-2025 DTaP/Tdap/Td Vaccines (7 - Td or Tdap) DTaP/Tdap/Td Vaccines (7 - Td or Tdap) [facility] Start: 03-28-2025 [facility] Start: 02-03-2025 COVID-19 Vaccine ( season) COVID-19 Vaccine ( season) [facility] Start: 02-03-2025 COVID-19 Vaccine ( season) COVID-19 Vaccine ( season) [facility] Start: 02-03-2025 Influenza vaccination [facility] Start: 01-26-2025 Meningococcal B Vaccine (2 of 2 - Bexsero SCDM 2-dose series) Meningococcal B Vaccine (2 of 2 - Bexsero SCDM 2-dose series) [facility] Start: 12-16-2024 End: 12-16-2024 Patient encounter procedure [facility] Start: 11-11-2024 End: 11-11-2024 Patient encounter procedure [facility] [place] Start: 11-08-2024 Yearly Adult Physical Yearly Adult Physical [facility] Start: 07-30-2024 End: 07-30-2025 Cortisol, urine, free [facility] Work Phone: Comment on above: Expected: 07/30/2024 (Approximate), Expi res: 07/30/2025 Start: 07-19-2024 Meningococcal B Vaccine (2 of 2 - Bexsero SCDM 2-dose series) Meningococcal B Vaccine (2 of 2 - Bexsero SCDM 2-dose series) [facility] Start: 2024 Screening for malignant neoplasm of cervix [facility] Start: 02-14-2024 Meningococcal B Vaccine: Consider Based On Risk (2 of 2 - Risk Bexsero 2-dose series) Meningococcal B Vaccine: Consider Based On Risk (2 of 2 - Risk Bexsero 2-dose series) [facility] Start: 02-04-2024 COVID-19 Vaccine ( season) COVID-19 Vaccine ( season) [facility] Start: 02-04-2024 COVID-19 Vaccine ( season) COVID-19 Vaccine ( season) [facility] Start: 02-04-2024 Covid-19 Vaccine ( season) Covid-19 Vaccine ( season) [facility] Start: 02-04-2024 Influenza vaccination [facility] Start: 11-10-2023 End: 11-10-2023 Patient encounter procedure 11/10/2023 2:15 PM EDT Office Visit Orthopaedics [address] [place] [address] Artemio Chandler MD [address] [place] [address] LOW BACK CONSULT Orthopaedics Comment on above: LOW BACK CONSULT Start: 11-08-2023 End: 11-07-2024 US Pelvis transvaginal US pelvis transvaginal Imaging Routine Cyst of right ovary Expected: 11/08/2023, Expires: 11/07/2024 [facility] Comment on above: Expected: 11/08/2023, Expires: Start: 10-02-2023 End: 10-02-2023 Patient encounter procedure 10/02/2023 2:20 PM EDT Procedure Visit [facility] [address] [place] [id number] Norma Retana DO [address] [place] [address] [facility] Start: 08-14-2023 End: 08-14-2023 Patient encounter procedure 08/14/2023 3:00 PM EDT Office Visit [facility] [address] [place] [phone] PostlethLuna crandall, 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 [address] [place] [address] [facility] Start: 08-14-2023 End: 08-13-2024 US Retroperitoneum US retroperitoneum Imaging Routine Dysuria Pelvic floor dysfunction Interstitial cystitis Expected: 08/14/2023, Expires: 08/13/2024 [facility] Comment on above: Expected: 08/14/2023, Expires: Start: 06-21-2023 Screening for Chlamydia trachomatis Chlamydia and Gonorrhea Screening [facility] Start: 06-05-2023 Behavioral Health Screening Behavioral Health Screening [facility] Start: 06-05-2023 Depression Assessment Depression Assessment [facility] Start: 05-23-2023 End: 05-23-2023 Patient encounter procedure 05/23/2023 10:30 AM EST Office Visit [facility] Pelvic Health [address] [place] [phone] Oscar Ramos MD [address] [place] [address] [address] [place] [address] [facility] Start: 02-03-2023 Covid-19 Vaccine (3 - 2023-24 season) Covid-19 Vaccine ( season) [facility] Start: 02-03-2023 Influenza vaccination Influenza Vaccine (#1) [facility] Start: 08-23-2022 End: 08-23-2022 Patient encounter procedure 08/23/2022 Office Visit Obstetrics and Gynecology Oscar Ramos MD [address] [place] [address] [address] [place] [address] [facility] Start: 06-30-2022 GC (Gonorrhea) Screening () GC (Gonorrhea) Screening () [facility] Start: 06-30-2022 Screening for Chlamydia trachomatis Chlamydia Screening () [facility] Start: 02-03-2022 Influenza vaccination Influenza Vaccine (#1) [facility] Start: 2021 Anxiety Screening Anxiety Screening [facility] Start: 2021 Depression Screening Depression Screening [facility] Start: 2021 Hepatitis C screening Hepatitis C Screening [facility] Start: 2021 HIV screening HIV Screening [facility] Start: 11-25-2020 COVID-19 Vaccine (3 - Booster for Pfizer series) COVID-19 Vaccine (3 - Booster for Pfizer series) [facility] Start: 02-04-2020 Influenza vaccination Flu vaccine (#1) [place] Start: 10-28-2019 HPV vaccine (2 - 3-dose series) HPV vaccine (2 - 3-dose series) [place] Start: 2019 Meningococcal (ACWY) vaccine (2 - 2-dose series) Meningococcal (ACWY) vaccine (2 - 2-dose series) [place] Start: 2019 Meningococcal B Vaccine: Consider Based On Risk (1 of 2 - Patient Seeks Protection) Meningococcal B Vaccine: Consider Based On Risk (1 of 2 - Patient Seeks Protection) [facility] Start: 2019 Screening for Chlamydia trachomatis Chlamydia screen [place], [place] Start: 2018 HIV screening HIV screen [place] Start: 10-29-2017 Peds To Adult Transition Annual Assessment Peds To Adult Transition Annual Assessment [facility] Start: 06-15-2016 Hepatitis A vaccine (2 of 2 - 2-dose series) Hepatitis A vaccine (2 of 2 - 2-dose series) [place] Start: 2015 Depression Screening Depression Screening [facility] Start: 2015 Peds To Adult Transition Initial Discussion Peds To Adult Transition Initial Discussion [facility] Start: 2009 Pneumococcal Vaccine: Pediatrics (0 to 5 Years) and At-Risk Patients (6 to 49 Years) (1 of 1 - PPSV23) Pneumococcal Vaccine: Pediatrics (0 to 5 Years) and At-Risk Patients (6 to 49 Years) (1 of 1 - PPSV23) [facility] Start: 2009 Pneumococcal Vaccine: Pediatrics (0 to 5 Years) and At-Risk Patients (6 to 64 Years) (1 of 1 - PPSV23 or PCV20) Pneumococcal Vaccine: Pediatrics (0 to 5 Years) and At-Risk Patients (6 to 64 Years) (1 of 1 - PPSV23 or PCV20) [facility] Start: 2009 Pneumococcal Vaccine: Pediatrics and At-Risk Adult Patients (1 of 1 - PPSV23) Pneumococcal Vaccine: Pediatrics and At-Risk Adult Patients (1 of 1 - PPSV23) [facility] Start: 2009 Pneumococcal Vaccine: Pediatrics and At-Risk Adult Patients (1 of 1 - PPSV23, PCV20, or PCV21) Pneumococcal Vaccine: Pediatrics and At-Risk Adult Patients (1 of 1 - PPSV23, PCV20, or PCV21) [facility] Start: 2007 Hearing Screening (#1) Hearing Screening (#1) [facility] Start: 2003 Application of dental fluoride varnish Fluoride Varnish [facility] Start: 2003 HIV screening HIV Screening [facility] Start: 2003 Lipid panel Lipid Panel [facility] Start: 2003 Screening for Chlamydia trachomatis Chlamydia and Gonorrhea Screening [facility] Start: 2003 Yearly Adult Physical Yearly Adult Physical [facility] Bacteria identified in Urine by Culture Urine culture Microbiology Routine Dysuria Ordered: 08/14/2023 [facility] Work Phone: Comment on above: Ordered: 08/14/2023 Bacteria identified in Urine by Culture BACTERIAL CULTURE, URINE Microbiology Routine Dysuria Ordered: 07/08/2024 [facility] Work Phone: Comment on above: Ordered: 07/08/2024 BACTERIAL VAGINOSIS NAAT BACTERI AL VAGINOSIS NAAT Lab Routine Vaginal odor Ordered: 07/08/2024 [facility] Comment on above: Ordered: 07/08/2024 RODRIGO/TRICHOMONAS NAAT RODRIGO /TRICHOMONAS NAAT Lab Routine Vaginal odor Ordered: 07/08/2024 [facility] Comment on above: Ordered: 07/08/2024 CHLAMYDIA/N.GONORRHO EAE AND T. VAGINALIS RNA, QL TMA ([facility]) Chlamydia/N.Gonorrhoeae and T. Vaginalis RNA, QL TMA ([facility]) Microbiology Routine Vaginal discharge [facility]dered: [facility]/21/2022 [facility]: Comment on above: Ordered: 06/21/2022 Cytology Cervical or vaginal smear or scraping study Pap Smear Pathology and Cytology Routine Cervical cancer screening Ordered: 12/16/2024 [facility] Work Phone: Comment on above: Ordered: 12/16/2024 Mycoplasma/Ureaplasm a Panel ([facility]) Mycoplasma/Ureaplasma Panel ([facility]) Microbiology Routine Vaginal discharge Ordered: 06/21/2022 [facility] Comment on above: Ordered: 06/21/2022 Neisseria gonorrhoea e DNA [Presence] in Cervical mucus by CONCEPCION with probe detection Chlamydia/Gonorrhea Microbiology Routine Screening examination for STI Possible exposure to STI Ordered: 12/16/2024 [facility] Comment on above: Ordered: 12/16/2024 OUTSIDE PROCEDURE SCAN OUTSIDE P ROCEDURE SCAN Procedures Ordered: 12/23/2023 [facility] [employer] [facility] Comment on above: Ordered: 12/23/2023 OUTSIDE PROCEDURE SCAN OUTSIDE P ROCEDURE SCAN Procedures Ordered: 07/30/2024 [facility] Comment on above: Ordered: 07/30/2024 OUTSIDE PROCEDURE SCAN OUTSIDE P ROCEDURE SCAN Procedures Ordered: 07/01/2024 [facility] Comment on above: Ordered: 07/01/2024 SURESWAB(R) ADVANCED VAGINITIS PLUS, TMA ([facility]) Sureswab(R) Advanced Vaginitis Plus, TMA ([facility]) Lab Routine Screen for STD (sexually transmitted disease) Ordered: 11/08/2023 [facility] Work Phone: Comment on above: Ordered: 11/08/2023 TRICOMONAS VAGINALIS RNA, QUALITATIVE TMA, FEMALE Trichomonas vaginalis RNA, Qualitative, TMA, Female Lab Routine Screening examination for STI Possible exposure to STI Ordered: 12/16/2024 [facility] Comment on above: Ordered: 12/16/2024 Urinalysis complete panel - Urine Complete Urinalysis Lab Routine Dysuria Ordered: 08/14/2023 [facility] Comment on above: Ordered: 08/14/2023 Immunizations Immunization Date Immunization Notes Care Provider Ez kaur 01-01-2023 tetanus toxoid, redu fernando diphtheria toxoid, and acellular pertussis vaccine, adsorbed [facility] Work Phone: 02-26-2021 meningococcal polysaccharide (groups A, C, Y and W-135) diphtheria toxoid conjugate vaccine (MCV4P) [facility] 09-30-2020 Pfizer SARS-CoV-2 Vaccination Oscar Ramos MD Work Phone: [facility] 09-08-2020 Pfizer SARS-CoV-2 Vaccination Oscar Ramos MD Work Phone: [facility] 02-05-2020 hepatitis A vaccine, adult dosage [facility] Work Phone: 02-05-2020 Human Papillomavirus 9-valent vaccine [facility] Work Phone: 09-30-2019 Human Papillomavirus 9-valent [facility] hepatitis A vaccine, adult dosage [facility] Work Phone: 08-01-2019 Human Papillomavirus 9-valent vaccine [facility] Work Phone: 12-14-2015 hepatitis A vaccine, pediatric/adolescent dosage, 2 dose schedule [facility] Work Phone: 12-14-2015 hepatitis A vaccine, unspecified formulation Estefanía Ordonez [place], [place] 12-14-2015 meningococcal polysaccharide (groups A, C, Y and W-135) diphtheria toxoid conjugate vaccine (MCV4P) [facility], [place] 12-14-2015 tetanus toxoid, redu fernando diphtheria toxoid, and acellular pertussis vaccine, adsorbed [facility], [place] 12-14-2015 varicella virus vaccine [facility] 12-14-2015 meningococcal vaccin e of unknown formulation and unknown serogroups [facility], [place] 03-26-2015 influenza virus vacc ine, live, attenuated, for intranasal use [facility] Work Phone: 03-26-2015 influenza virus vacc ine, unspecified formulation Oscar Ramos MD Work Phone: [facility] 03-19-2013 influenza virus vacc ine, whole virus [facility] Work Phone: 06-18-2012 influenza virus vacc ine, whole virus [facility] Work Phone: 06-11-2009 novel influenza-H1N1 -09, preservative-free, injectable [facility] Work Phone: 04-23-2009 novel influenza-H1N1 -09, preservative-free, injectable [facility] Work Phone: 08-11-2008 diphtheria, tetanus toxoids and acellular pertussis vaccine [facility], [place] 08-11-2008 diphtheria, tetanus toxoids and acellular pertussis vaccine, unspecified formulation [facility] Work Phone: 08-11-2008 measles, mumps and rubella virus vaccine [facility] 08-11-2008 poliovirus vaccine, inactivated [facility] 08-11-2008 varicella virus vaccine [facility] 10-14-2005 diphtheria, tetanus toxoids and acellular pertussis vaccine [facility], [place] 10-14-2005 diphtheria, tetanus toxoids and acellular pertussis vaccine, unspecified formulation [facility] Work Phone: 10-14-2004 diphtheria, tetanus toxoids and acellular pertussis vaccine [facility], [place] 10-14-2004 diphtheria, tetanus toxoids and acellular pertussis vaccine, unspecified formulation [facility] Work Phone: 10-14-2004 poliovirus vaccine, inactivated [facility] 07-15-2004 measles, mumps and rubella virus vaccine [facility] 03-23-2004 haemophilus influenz ae type b vaccine, PRP-T conjugate [facility] 03-23-2004 hepatitis B vaccine, unspecified formulation [facility] , [place] 03-23-2004 pneumococcal conjuga te vaccine, 13 valent [facility] 2003 pneumococcal conjuga te vaccine, 13 valent [facility] 2003 haemophilus influenz ae type b vaccine, PRP-T conjugate [facility] 2003 diphtheria, tetanus toxoids and acellular pertussis vaccine [facility], [place] 2003 diphtheria, tetanus toxoids and acellular pertussis vaccine, unspecified formulation [facility] Work Phone: 2003 haemophilus influenz ae type b vaccine, PRP-T conjugate [facility] 2003 hepatitis B vaccine, unspecified formulation [facility] , [place] 2003 pneumococcal conjuga te vaccine, 13 valent [facility] 2003 poliovirus vaccine, inactivated [facility] 2003 diphtheria, tetanus toxoids and acellular pertussis vaccine [facility] 2003 diphtheria, tetanus toxoids and acellular pertussis vaccine, unspecified formulation [facility] Work Phone: 2003 haemophilus influenz ae type b vaccine, PRP-T conjugate [facility] 2003 hepatitis B vaccine, unspecified formulation [facility] 2003 pneumococcal conjuga te vaccine, 13 valent Estefanía Ordonez [facility] 2003 poliovirus vaccine, inactivated Estef[facility] Payers Date Payer Category Payer Self-pay 2024 Managed Care (Private) [id number] 2024 Private Health Insurance MMO SUP ERMED PPO [id number] 2022 Commercial Managed C are - HMO [id number] 2020 Unknown 2020 Unknown [id number] 2015 Unknown [facility] [id number] 2015-Present [phone] [address] [place] [address] [id number] 1965 Unknown [id number] 1965 Unknown [id number] Unknown [id number] Unknown [id number] Unknown [id number] Unknown [id number] Unknown [id number] Social History Date Type Detail Facility Start: 11-13-2019 End: 02-21-2025 Tobacco smoking status NHIS Never smoker [place], [place] Start: 11-13-2019 End: 06-04-2024 Tobacco use and exposure Never used [place] Start: 11-13-2019 End: 12-16-2024 Alcohol intake Current non-drinker of alcohol (finding) [place] Start: 2003 Sex Assigned At Not on file [place], [place] Start: 06-11-2022 End: 01-03-2023 Exposure to SARS-CoV-2 (event) Not sure [place] Start: 01-03-2023 End: 02-17-2025 History of Social function [facility] Start: 01-03-2023 End: 02-17-2025 Tobacco use panel [facility] Start: 01-01-2023 End: 03-11-2024 Alcohol intake Lifetime non-drinker (finding) [facility] How often to you hav e a drink containing alcohol? Never [facility] Start: 04-29-2022 Average Number of Drinks Not on file [facility] History of tobacco use Passive smoker [facility] Work Phone: Start: 06-04-2024 End: 02-04-2025 Alcoholic beverage intake Defer [facility] Work Phone: Start: 01-03-2022 Sex Female (finding) [facility] Start: 02-17-2025 Alcoholic beverage intake Current drinker of alcohol (finding) [facility] Work Phone: Start: 2005 Sex Assigned At Female [facility] Functional Status Date Assessment Result Facility 02-17-2025 Patient Health [facility] ionnaire 2 item (PHQ-2) [Reported] [facility] Work Phone: Clinical Notes 06-21-2022 to 02-21-2025 Note Date & Type Note Facility 02-21-2025 Progress note [facility] 02-21-2025 Progress note Note Date/Time February 21, 2025 2:10pm [facility] [address] [place] [address] OFFICE VISIT Date of Service: 02/21/25 MR#: [id number] Acct: [id number] Name: LUL SANTIAGO Rep #: [id number] : 2005 Provider: CODI Bartlett Age/Sex: 19/F Location: [facility] [place] [facility] Status: Signed Intake Intake Visit Reasons: Epigastric pain/Acid Refllux Chief Complaint: GERD Filter Helper Required: No Accompanied by: Self Is patient in pain?: No Allergies nirmatrelvir (From Paxlovid) Allergy (Intermediate, Verified 02/21/25 14:19) Other ritonavir (From Paxlovid) Allergy (Intermediate, Verified 02/21/25 14:19) Other brompheniramine Adverse Reaction (Mild, Verified 02/21/25 14:19) Other cefdinir Adverse Reaction (Mild, Verified 02/21/25 14:19) Abd cramps/diarrhea doxycycline Adverse Reaction (Mild, Verified 02/21/25 14:19) Abd cramps/diarrhea nortriptyline Adverse Reaction (Mild, Verified 02/21/25 14:19) Other Penicillins (PCN) Adverse Reaction (Mild, Verified 02/21/25 14:19) Abd cramps/diarrhea Medications ?Medication ?Instructions ?Recorded ?Confirmed ?Type albuterol sulfate 90 mcg/actuation 2 puff inhalation Q 4-6H PRN 02/17/25 02/17/25 History aerosol inhaler dicyclomine 10 mg capsule 10 mg PO TID 02/17/25 History etonogestrel 0.12 mg-ethinyl 1 vag ring vaginal Q4W 02/17/25 History estradiol 0.015 mg/24 hr vaginal ring (NuvaRing) inulin 1.7 gram chewable tablet g PO 02/17/25 02/17/25 History (Fiber Gummies) risankizumab-rzaa 150 mg/mL 150 mg subcut Q12W 5 02/17/25 History subcutaneous pen injector (Skyrizi) tizanidine 2 mg capsule 2 mg PO Q8H PRN 02/17/25 History cephalexin 250 mg capsule 250 mg PO BID 02/21/2502/21 History pantoprazole 40 mg tablet,delayed 40 mg PO QDAY #30 ta bs 02/21/25 02/21/25 Rx release PFSH Medical History (Updated 02/21/25 @ 14:17 by Brandi Oliveira) Anxiety Psoriasis Vitamin deficiency Irritable bowel syndrome (IBS) Hormone deficiency Hives Hx of migraine headaches Gastrointestinal problem UTI (urinary tract infection) Bone fracture Back problem Arthritis Seasonal allergies Abnormal pituitary luteinizing hormone (LH) Irritable bowel syndrome with diarrhea Asthma exacerbation Migraines GERD (gastroesophageal reflux disease) Epigastric pain Surgical History (Updated 02/21/25 @ 14:16 by Brandi Oliveira) [place] teeth extracted Family History (Updated 02/21/25 @ 13:55 by Brandi Oliveira) Father Hyperlipidemia Mother Depression Aunt Cancer of kidney Other Colon cancer Social History (Updated 02/21/25 @ 14:18 by Brandi Oliveira) Smoking Status: Never smoker alcohol intake: current details: 1-2 days a week substance use type: does not use what type of physical activity do you participate in: walking HPI HPI Chief Complaint: GERD Details: LUL SANTIAGO, is a 19 F who presents to the office today for establishment. Patient with a long history of GERD type symptoms. Patient previously seeing her PCP for management however symptoms have become refractory and she was referred to GI office. In the past she has taken famotidine just as needed but this eventually stopped working. She was then put on omeprazole which she felt made her symptoms worse so she discontinued it. She has heartburn on a consistent basis. She has nausea but does not vomit. She has noticed that greasy and spicy foods can cause worse symptoms. Patient also feels difficulty swallowing with certain food textures like peanut butter. She will have to drink a lot of water to get the food down. She has some intermittent right upper quadrant abdominal pain however she had a right upper quadrant ultrasound which was normal. She has a history of IBS and will have constipation on occasion. At 1 point she was having blood in her stool stool fit test was ordered which was negative. She denies any diarrhea, constipation or blood in her stool at this time. ROS Const Constitutional: Positive for fatigue and headache(s); No fever(s) or weight change ENT ENT: Positive for headache(s) and difficulty swallowing Gastro GI: Positive for abdominal pain, bloating, heartburn, difficulty swallowing and nausea/dyspepsia; No belching, change in bowel habits, change in stool character, coffee ground emesis, constipation, cramping, diarrhea, feeling full early, excessive flatus, incontinent of stools, Vomiting blood/hematemesis, Blood in stool, loose stools,Black,tarry stools, pain with swallowing, vomiting or other Musc Musculoskeletal: Positive for joint pain, back pain, muscle cramps, stiffness and Arthritis Skin Skin: No yellowing of the eye or itchy eyes Neuro Neurology: Positive for headache(s) and tremor(s) Psych Psychiatric: Positive for anxiety and No depression Endo Endocrine: Positive for fatigue; No weight change Aller/Imm Allergy/Immunologic: No itchy eyes Nicholas/Lymp Hematologic/Lymphatic: No easy bleeding or easy bruising Exam Const General: cooperative, healthy appearing and comfortable Nutritional Appearance: average body habitus Orientation: alert HENPR Head: normal to inspection Eyes General: appearance normal, both eyes and all related structures Neck Neck: normal visual inspection Chest Chest palpation & inspection: normal inspection of the chest Resp Effort & Inspection: normal respiratory effort Cardio Rate: regular rate Rhythm: regular rhythm GI Inspection: normal to inspection Auscultation: normal bowel sounds Palpation: soft and nontender Assessment and Plan Assessment and Plan (1) Epigastric pain: Status: Acute Plan: Jensen is a 19-year-old female patient here today for evaluation of GERD. Patient with GERD for many years managed by her PCP. In the past she has taken famotidine however her symptoms became refractory and she was started on omeprazole. Patient found omeprazole worsened her symptoms so she discontinued. She has complaints of heartburn, difficulty swallowing, and regurgitation. I recommended she start pantoprazole 40 mg daily and have an upper endoscopy to assess her upper GI tract. Patient was agreeable to this. She also has a history of IBS with constipation but is not currently experience any symptoms relating to this. I do not feel she requires a colonoscopy at this time as she has no alarm features. If symptoms develop or worsen we may consider colonoscopy in the future. - EGD - Start pantoprazole 40 mg daily - Consider colonoscopy (2) GERD (gastroesophageal reflux disease): Status: Acute (3) Irritable bowel syndrome with diarrhea: Status: Acute Medications: New pantoprazole 40 mg PO QDAY 30 tabs 1RF Coding Level of Care Code Off vis,new,level 4 Diagnoses Epigastric pain R10.13 GERD (gastroesophageal reflux disease) K21.9 Irritable bowel syndrome with diarrhea K58.0 02/21/25 1448 <Electronically signed by Nakita KINCAID> Date _ Nakita KINCAID Cosigner Signature: Date (if applicable) CC: ~ [facility] Work Phone: 1([phone]) 188-748309-15-2025 History of Present illness Narrative* Shaw Sood MD - 02/17/2025 7:00 PM EDT Images from the original note were not included. Subjective Patient ID: Lul Santiago is a 19 y.o. female. They present today with a chief complaint of Finger Pain. History of Present Illness Patient reports symptoms present for ~1 day Notes right 5th finger swelling and redness Notes slight drainage Denies fever Reports that she was recently on abx for a sinus infection Wears acrylic nails. Bites hang nails at times. Declines I&D at this time Past Medical History Allergies as of 02/17/2025 - Reviewed 02/17/2025 Allergen Reaction Noted Bromfed [brompheniramine-pseudoephedrin] Shortness of breath 06/04/2024 Penicillins GI Upset 01/03/2023 Nirmatrelvir-ritonavir Hives 06/04/2024 Prescriptions Prior to Admission[1] Medical History[2] Surgical History[3] reports that she has never smoked. She has been exposed to tobacco smoke. She has never used smokeless tobacco. She reports current alcohol use. Objective Vitals: 02/17/25 1905 BP: 130/87 Pulse: 75 Resp: 16 Temp: 36.9 C (98.4 F) TempSrc: Oral SpO2: 98% Weight: 55.8 kg (123 lb) Height: 1.6 m (5' 3") Patient's last menstrual period was 02/04/2025 (approximate). Physical Exam Constitutional: General: She is not in acute distress. Appearance: Normal appearance. She is not toxic-appearing or diaphoretic. HENT: Nose: No rhinorrhea. Eyes: General: No scleral icterus. Right eye: No discharge. Left eye: No discharge. Extraocular Movements: Extraocular movements intact. Pulmonary: Effort: Pulmonary effort is normal. Musculoskeletal: Hands: Cervical back: Normal range of motion. Neurological: Mental Status: She is alert. Psychiatric: Mood and Affect: Mood normal. Behavior: Behavior normal. Thought Content: Thought content normal. Comments: Pleasant Procedures Point of Care Test & Imaging Results from this visit: Diagnostic study results (if any) were reviewed by Shaw Sood MD. Assessment/Plan Allergies, medications, history, and pertinent labs/EKGs/Imaging reviewed by Shaw Sood MD. Medical Decision Making: Patient's right 5th finger findings are consistent with an acute paronychia. Declines I&D at this time. Trial mupirocin ointment & keflex. Return as needed. Orders and Diagnoses Diagnoses and all orders for this visit: Paronychia of right little finger - mupirocin (Bactroban) 2 % ointment; Apply topically 3 times a day for 10 days. - cephalexin (Keflex) 500 mg capsule; Take 1 capsule (500 mg) by mouth 2 times a day for 5 days. Patient disposition: Home Medical Admin Record Follow Up Instructions No follow-ups on file. Electronically signed by Shaw Sood MD 1:18 PM [1] (Not in a hospital admission) [2] No past medical history on file. [3] No past surgical history on file. documented in this [facility] Work Phone: 1(186) 161-754009-02-2025 History of Present illness Narrative* Julius Yanes, JULES-ESTELITA - 02/04/2025 8:00 AM EDT Subjective Patient ID: Lul Santiago is a 19 y.o. female. They present today with a chief complaint of Headache(Congestion, headache, sinus pressure, chills x 4 days ). 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 Recent travel to [place]. C/o sore throat, fatigue, cough and cold s/s x 7 day(s). Has tried OTC meds with mild relief. Denies any CP, SOB, BURK, fever, abdominal pain, and nausea/vomiting otherwise. History provided by: Patient Past Medical History Allergies as of 02/04/2025 - Reviewed 02/04/2025 Allergen Reaction Noted Bromfed [brompheniramine-pseudoephedrin] Shortness of breath 06/04/2024 Penicillins GI Upset 01/03/2023 Nirmatrelvir-ritonavir Hives 06/04/2024 Prescriptions Prior to Admission[1] Medical History[2] Surgical History[3] reports that she has never smoked. She has been exposed to tobacco smoke. She has never used smokeless tobacco. Alcohol use questions deferred to the physician. Review of Systems Review of Systems Constitutional: Positive for fatigue. Negative for appetite change, chills, diaphoresis and fever. HENT: Positive for ear pain, postnasal drip, sinus pressure, sinus pain and sore throat. Negative for ear discharge and rhinorrhea. Eyes: Negative. Respiratory: Negative. Negative for cough, shortness of breath and wheezing. Cardiovascular: Negative. Negative for chest pain. Gastrointestinal: Negative. Musculoskeletal: Negative. Skin: Negative. Allergic/Immunologic: Positive for environmental allergies. Neurological: Positive for headaches. Psychiatric/Behavioral: Negative. All other systems reviewed and are negative. Objective Vitals: 02/04/25 0809 BP: 120/80 BP Location: Right arm Patient Position: Sitting BP Cuff Size: Adult Pulse: 104 Resp: 22 Temp: 37 C (98.6 F) TempSrc: Oral SpO2: 98% Weight: 55.3 kg (122 lb) Height: 1.6 m (5' 3") Patient's last menstrual period was 02/04/2025 (approximate). Physical Exam Vitals and nursing note reviewed. Constitutional: General: She is not in acute distress. Appearance: Normal appearance. She is normal weight. She is not ill-appearing, toxic-appearing or diaphoretic. HENT: Head: Normocephalic and atraumatic. Right Ear: Tympanic membrane and ear canal normal. Left Ear: Tympanic membrane and ear canal normal. Nose: No rhinorrhea. Right Sinus: Maxillary sinus tenderness and frontal sinus tenderness present. Left Sinus: Maxillary sinus tenderness and frontal sinus tenderness present. Mouth/Throat: Mouth: Mucous membranes are moist. Pharynx: Oropharynx is clear. Posterior oropharyngeal erythema present. Eyes: Extraocular Movements: Extraocular movements intact. Pupils: Pupils are equal, round, and reactive to light. Cardiovascular: Rate and Rhythm: Normal rate and regular rhythm. Pulses: Normal pulses. Heart sounds: Normal heart sounds. Pulmonary: Effort: Pulmonary effort is normal. No respiratory distress. Breath sounds: Normal breath sounds. No wheezing or rhonchi. Abdominal: General: Abdomen is flat. Bowel sounds are normal. Palpations: Abdomen is soft. Tenderness: There is no right CVA tenderness or left CVA tenderness. Skin: General: Skin is warm and dry. Neurological: General: No focal deficit present. Mental Status: She is alert and oriented to person, place, and time. Psychiatric: Mood and Affect: Mood normal. Behavior: Behavior normal. Procedures Point of Care Test & Imaging Results from this visit Results for orders placed or performed in visit on 02/04/25 POCT SPOTFIRE R/ST Panel Mini w/Strep A ([facility]) manually resulted Result Value Ref Range POC Group A Strep, PCR Negative Negative POC Respiratory Syncytial Virus PCR Negative Negative POC Influenza A Virus PCR Negative Negative POC Influenza B Virus PCR Negative Negative POC Human Rhinovirus PCR Negative Negative POCT Covid-19 Rapid Antigen Result Value Ref Range POC LISSETTE-COV-2 AG Positive test for SARS-CoV-2 (antigen detected) (A) Presumptive negative test for SARS-CoV-2 (no antigen detected) Imaging No results found. Cardiology, Vascular, and Other Imaging No other imaging results found for the past 2 days Diagnostic study results (if any) were reviewed by GORDY Miller. Assessment/Plan Allergies, medications, history, and pertinent labs/EKGs/Imaging reviewed by GORDY Miller. Medical Decision Making Positive COVID. See results. Presentation consistent with and discussed viral etiology. On exam, pansinusitis. Sending augmentin which she has tolerated previously. Discussed pushing fluids, rest, OTC symptoms management PRN. ED for any new or worsening s/s. Close follow up with PCP. Patient will stay off work/school until fever free for at least 24 hours without an antipyretics such as tylenol and ibuprofen, and symptoms improving, per CDC guidelines. Pt advised to rest, stay hydrated, monitortemperature. Pt will notify PCP if temp 104 or persists for 3 weeks. Patient verbalized understanding and agreed with the plan of care. Work note provided. At time of discharge, patient was clinically well-appearing and appropriate for outpatient management. The patient/parent/guardian was educated regarding diagnosis, supportive care, OTC and Rx medications. The patient/parent/guardian was given the opportunity to ask questions prior to discharge. They verbalized understanding of discussion of treatment plan, expected course of illness and/or injury, indications on when to return to , when to seek further evaluation in ED/call 911, and the needto follow up with PCP and/or specialist as referred. Patient/parent/guardian was provided with work/school documentation if requested. Patient stable upon discharge. Case Staffing Case does not need staffing per [facility] case staffing policy Orders and Diagnoses Diagnoses and all orders for this visit: COVID-19 Acute non-recurrent pansinusitis - amoxicillin-clavulanate (Augmentin) 875-125 mg tablet; Take 1 tablet (875 mg of amoxicillin) by mouth 2 times a day for 7 days. Congestion of nasal sinus - POCT SPOTFIRE R/ST Panel Mini w/Strep A ([facility]) manually resulted Postviral fatigue syndrome Exposure to COVID-19 virus - POCT Covid-19 Rapid Antigen Medical Admin Record Patient disposition: Home Electronically signed by GORDY Miller 9:07 AM [1] (Not in a hospital admission) [2] History reviewed. No pertinent past medical history. [3] History reviewed. No pertinent surgical history. 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 Primary Care Physician: Nidia Zhao Chief Complaint Patient presents with Gynecologic Exam Annual exam HPI : Lul Santiago is a 19 y.o. female here for annual exam. Gynecologic History: Patient's last menstrual period was 12/09/2024 (exact date). Menses: regular Dysmenorrhea: yes, improved with nuvaring Sexually Active: yes STD History: no, desires screening Contraception: NuvaRing vaginal inserts Preventative Health Testing: Last Pap Smear: n/a Abnormal Pap Smear History: n/a Family history of breast, ovarian, uterine, colon cancer: no OB History Para Term AB Living 0 0 0 0 0 0 SAB IAB Ectopic Multiple Live Births 0 0 0 0 0 Past Medical History: Diagnosis Date Allergic Allergic rhinitis Anxiety Asthma Fracture lumbar vertebra-closed (HCC) Fracture of distal phalanx of finger, closed Pinky finger Fracture of lower leg, closed x2 Interstitial cystitis Migraine Vitamin D deficiency Past Surgical History: Procedure Laterality Date WISDOM TOOTH EXTRACTION Bilateral Family History Problem Relation Name Age of Onset Kidney cancer Father's Sister Kidney Cancer Cancer Father's Sister Kidney Cancer High Blood Pressure Paternal Grandmother Heart disease Paternal Grandmother Anesthesia problems Mother Nausea Social History Socioeconomic History Marital status: Single Spouse name: Not on file Number of children: Not on file Years of education: Not on file Highest education level: Not on file Occupational History Not on file Tobacco Use Smoking status: Never Smokeless tobacco: Never Substance and Sexual Activity Alcohol use: No Drug use: No Sexual activity: Yes Partners: Male control/protection: Ring, Other Comment: Condom Other Topics Concern Not on file Social History Narrative Not on file Social Drivers of Health Financial Resource Strain: Not on file Food Insecurity: Not on file Transportation Needs: Not on file Physical Activity: Not on file Stress: Not on file Social Connections: Not on file Intimate Partner Violence: Not on file Housing Stability: Not on file MEDICATIONS: Current Outpatient Medications Medication Sig Dispense Refill albuterol 108 (90 Base) MCG/ACT inhaler inhale 1 to 2 puffs by mouth and INTO THE LUNGS every 6 hours if ... (REFER TO PRESCRIPTION NOTES). dicyclomine (Bentyl) 10 MG capsule Take 10 mg by mouth 4 times daily. fluticasone (Flonase) 50 MCG/ACT nasal spray Administer 2 sprays into each nostril daily. Shake gently. Before first use, prime pump. After use, clean tip and replace cap. 16 g 11 hydrOXYzine HCl (Atarax) 10 MG tablet Take by mouth. omeprazole (PriLOSEC) [address] capsule Take 20 mg by mouth every morning (before breakfast). Do notcrush or chew. Risankizumab-rzaa (Skyrizi) 150 MG/ML solution prefilled syringe Inject under the skin. tiZANidine (Zanaflex) 2 MG tablet Take 1 tablet by mouth as needed. amitriptyline (Elavil) 50 MG tablet Take 50 mg by mouth Nightly. (Patient not taking: Reported on 09/23/2024) azelastine (Astelin) 0.1 % nasal spray Administer 2 sprays into each nostril 2 times daily. Use in each nostril as directed 30 mL 11 etonogestrel-ethinyl estradiol (EluRyng) 0.12-0.015 MG/24HR vaginal ring INSERT ONE RING VAGINALLY AND LEAVE IN PLACE FOR 3 WEEKS, IMMEDIATELY REPLACE WITH ANOTHER RING TO SKIP PERIODS 3 Ring 5 famotidine (Pepcid) 40 MG tablet Take 1 tablet by mouth as needed. (Patient not taking: Reported on09/23/2024) lidocaine (Xylocaine) 5 % ointment Apply to just outside vaginal opening at bedtime x 6 weeks (Patient not taking: Reported on 09/23/2024) 30 g 0 montelukast (Singulair) 10 MG tablet Take 10 mg by mouth Daily as needed. (Patient not taking: Reported on 09/23/2024) naproxen (Naprosyn) 500 MG tablet Take 500 mg by mouth in the morning and 500 mg in the evening. Take with meals. (Patient not taking: Reported on 09/23/2024) No current facility-administered medications for this visit. ALLERGIES: Allergies as of 12/16/2024 - Reviewed 12/16/2024 Allergen Reaction Noted Paxlovid [nirmatrelvir-ritonavir] Anaphylaxis 09/23/2024 Pcn [penicillins] 01/03/2023 REVIEW OF SYSTEMS: CONSTIUTIONAL: No weight change or fatigue CV: No Chest Pain with Exertion, Palpitations, Syncope, Edema, Arrhythmia RESPIRATORY: No SOB or Cough, BREAST: No breast abnormalities or lumps GI: No Indigestion, Heartburn, Nausea, vomiting, Diarrhea, Constipation,Bloating or Bowel Changes; No Bloody Stools or melena : No Dysuria, Hematuria or Nocturia. No Urinary Incontinence or Vaginal Discharge,vaginal bleeding, or dysparuenia. NEURO: No Migraines,, Seizure Hx, or Limb Weakness DERM: No Rash, Itching, Mole Changes or Cancer PSYCH: No Depression, Homicidal thoughts,suicidal thoughts, or anxiety MUSCULOSKELETAL: No Arthralgia or Arthritis HEME and LYMPH :No Lymphoma, Von Willebrand's, Hemophillia or Bleeding History PHYSICAL EXAM: Vitals: 12/16/24 0808 BP: 122/78 Pulse: 79 Weight: 122 lb (55.3 kg) Height: 5' 3" (1.6 m) Body mass index is 21.61 kg/m . 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 EXTERNAL GENITALIA: normal female structures VAGINA: normal ruggae, no lesions CERVIX: no lesions, no cervical motion tenderness, normal appearance. UTERUS: normal mobility, nontender, normal size, shape and consistency. ADNEXA: normal, non tender no masses. URETHRA: normal. nontender BLADDER: non tender. PELVIC SUPPORT DEFECTS: Normal support of vagina, uterus, and bladder ANUS/PERINEUM: no hemorrhoids, masses or warts noted. GENERAL EXAM CONSTITUTIONAL: Well developed, well nourished, well groomed. no acute distress NECK: no thyromegaly, supple. CARDIOVASCULAR: normal rate and rhythm, no edema LUNGS: Normal effort, normal lung sounds ABDOMEN: soft, non-tender, non-distended, no hepatospleenomegaly NEUROLOGICAL: no gross motor or sensory deficits noted. . MUSCULOSKETAL: normal gait, no cyanosis. PSYCHIATRIC Normal mood and affect, A&O x3. ASSESSMENT/PLAN: Lul was seen today for gynecologic exam. Diagnoses and all orders for this visit: Well woman exam with routine gynecological exam (Primary) Cervical cancer screening - Pap Smear Screening examination for STI - Chlamydia/Gonorrhea - Trichomonas vaginalis RNA, Qualitative, TMA, Female Possible exposure to STI - Chlamydia/Gonorrhea - Trichomonas vaginalis RNA, Qualitative, TMA, Female Other orders - etonogestrel-ethinyl estradiol (EluRyng) 0.12-0.015 MG/24HR vaginal ring; INSERT ONE RING VAGINALLY AND LEAVE IN PLACE FOR 3 WEEKS, IMMEDIATELY REPLACE WITH ANOTHER RING TO SKIP PERIODS Follow up in about 1 year (around 12/16/2025) for annual. control and barrier recommendations discussed. STD counseling and prevention reviewed. Gardisil counseling completed for all patients 9-45 yo. Routine health maintenance per patients PCP. documented in this [facility]SOhio[facility] [id number] Telephone encounter Note* Telephone Encounter - Una Chaves MA - 11/15/2024 2:16 PM EDT ALICIA: 11/2023 NOV: 12/16/2024 Refill pended for approval [facility]ills. [facility] [id number] Miscellaneous Notes* Telephone Encounter - Una Chaves MA - 11/15/2024 2:16 PM EDT ALICIA: 11/2023 NOV: 12/16/2024 Refill pended for approval [facility] with 12 refills. documented in this [facility]06-13-2025 History of Present illness Narrative* Jessica Whitaker CT - 11/15/2024 6:45 AM EDT Radiology Service Progress Note PATIENT NAME: Lul Santiago DATE OF SERVICE: November 15, 2024 TIME: 8:15 AM PATIENT IDENTITY VERIFICATION COMPLETED USING TWO (2) IDENTIFIERS: Name and Date of confirmedby patient verbally. FALL SCREENING: Has the patient had 2 falls in the last year or 1 fall with injury or currently using an Ambulatory Assistive Device (Walker, Cane, Wheelchair, Crutches, etc.)? No PATIENT GENDER DATA: na PATIENT RELEVANT IMPLANT DATA REVIEWED: Not Applicable PATIENT PRESENTS WITH AN IMPLANTABLE OR ATTACHED DOWEL PIN WORKER: na RADIOLOGY DEPARTMENT: Ultrasound PERIPHERAL IV DATA: Not applicable SIGNED BY: SHIELA Posada November 15, 2024 8:15 AM documented in this [facility]06-13-2025 NoteHNO ID: [id number] Author: JESSICA WHITAKER CT Service: Radiology Author Type: Technologist Type: Progress Notes Filed: 11/15/2024 08:16 Note Text: Radiology Service Progress Note PATIENT NAME: Lul Santiago DATE OF SERVICE: November 15, 2024 TIME: 8:15 AM PATIENT IDENTITY VERIFICATION COMPLETED USING TWO (2) IDENTIFIERS: Name and Date of confirmed by patient verbally. FALL SCREENING: Has the patient had 2 falls in the last year or 1 fall with injury or currently using an Ambulatory Assistive Device (Walker, Cane, Wheelchair, Crutches, etc.)? No PATIENT GENDER DATA: na PATIENT RELEVANT IMPLANT DATA REVIEWED: Not Applicable PATIENT PRESENTS WITH AN IMPLANTABLE OR ATTACHED DOWEL PIN WORKER: na RADIOLOGY DEPARTMENT: Ultrasound PERIPHERAL IV DATA: Not applicable SIGNED BY: SHIELA Posada November 15, 2024 8:15 AMBrecksville Va / Crille [id number] History of Present illness Narrative* Lilia Garrett MD - 09/23/2024 2:15 PM EDT Assessment and Recommendations: Lul Santiago is a 19 y.o. 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 eustachian tube dysfunction -I counseled the patient on findings we will start Flonase Astelin auto Valsalva to help with her eustachian tube dysfunction allergic rhinitis will also add the patient for allergy testing she was interested in this -In regards to her LPR she is scheduled to see with GI continue omeprazole therapy She has some concerns regarding her hearing as well as possible further evaluation eustachian tube dysfunction will schedule 4-week follow-up with our audiology team and then follow-up with me Otolaryngology Head and Neck Surgery Clinic Note HPI: Lul Santiago is a 19 y.o. yo female who presents to clinic today for evaluation of several ear nose and throat complaints. Patient states has been ongoing for quite some time she states that she has nasal congestion as well as facial pain and pressure in fullness in the right ear. She states thatshe may have allergies she has been off Flonase intermittently without any benefit no prior historyof any nasal related surgery she gets about 1 sinus infection per year she denies any trauma to thenose she has tried yasm-xor-cuntdgk allergy medication but unable to tolerate it she is battling really bad acid reflux currently she has been switching her omeprazole therapy from famotidine and has not quite been improving as she does note globus sensation frequent throat clearing and postnasal drip. She also states that she had times has been dealing with TMJ related issues been using a mouthguard but it is not staying in so she is not adequately feels like she is treating this as well mostly that bothers the left jaw her right ear fullness is typically restrictive the right no other concerns at this time no prior history of any head neck surgery. PMH: Past Medical History: Diagnosis Date Allergic Allergic rhinitis Anxiety Asthma Fracture lumbar vertebra-closed (HCC) Fracture of distal phalanx of finger, closed Pinky finger Fracture of lower leg, closed x2 Interstitial cystitis Migraine Vitamin D deficiency Allergies: Allergies Allergen Reactions Paxlovid [Nirmatrelvir-Ritonavir] Anaphylaxis Pcn [Penicillins] Medications: Current Outpatient Medications: albuterol 108 (90 Base) MCG/ACT inhaler, inhale 1 to 2 puffs by mouth and INTO THE LUNGS every 6 hours if ... (REFER TO PRESCRIPTION NOTES)., Disp: , Rfl: etonogestrel-ethinyl estradiol (EnilloRing) 0.12-0.015 MG/24HR vaginal ring, Insert vaginally and leave in place for 3 consecutive weeks, then remove for 1 week., Disp: 3 Ring, Rfl: 4 tiZANidine (Zanaflex) 2 MG tablet, Take 1 tablet by mouth as needed., Disp: , Rfl: amitriptyline (Elavil) 50 MG tablet, Take 50 mg by mouth Nightly. (Patient not taking: Reported on 09/23/2024), Disp: , Rfl: dicyclomine (Bentyl) 10 MG capsule, Take 10 mg by mouth 4 times daily., Disp: , Rfl: famotidine (Pepcid) 40 MG tablet, Take 1 tablet by mouth as needed. (Patient not taking: Reported on 09/23/2024), Disp: , Rfl: hydrOXYzine HCl (Atarax) 10 MG tablet, Take by mouth., Disp: , Rfl: lidocaine (Xylocaine) 5 % ointment, Apply to just outside vaginal opening at bedtime x 6 weeks (Patient not taking: Reported on 09/23/2024), Disp: 30 g, Rfl: 0 montelukast (Singulair) 10 MG tablet, Take 10 mg by mouth Daily as needed. (Patient not taking: Reported on 09/23/2024), Disp: , Rfl: naproxen (Naprosyn) 500 MG tablet, Take 500 mg by mouth in the morning and 500 mg in the evening. Take with meals. (Patient not taking: Reported on 09/23/2024), Disp: , Rfl: omeprazole (PriLOSEC) [address] capsule, Take 20 mg by mouth every morning (before breakfast). Do not crush or chew., Disp: , Rfl: Risankizumab-rzaa (Skyrizi) 150 MG/ML solution prefilled syringe, Inject under the skin., Disp: , Rfl: PSH: Past Surgical History: Procedure Laterality Date WISDOM TOOTH EXTRACTION Bilateral FH: Family History Problem Relation Name Age of Onset Kidney cancer Father's Sister Kidney Cancer Cancer Father's Sister Kidney Cancer High Blood Pressure Paternal Grandmother Heart disease Paternal Grandmother Anesthesia problems Mother Nausea SH: Social History Socioeconomic History Marital status: Single Spouse name: Not on file Number of children: Not on file Years of education: Not on file Highest education level: Not on file Occupational History Not on file Tobacco Use Smoking status: Never Smokeless tobacco: Never Substance and Sexual Activity Alcohol use: No Drug use: No Sexual activity: Yes Partners: Male control/protection: Ring, Other Comment: Condom Other Topics Concern Not on file Social History Narrative Not on file Social Drivers of Health Financial Resource Strain: Not on file Food Insecurity: Not on file Transportation Needs: Not on file Physical Activity: Not on file Stress: Not on file Social Connections: Not on file Intimate Partner Violence: Not on file Housing Stability: Not on file Physical Exam: Constitutional: General: Patient is not in acute distress. Appearance: Patient is well-developed. Eyes: Conjunctiva/sclera: Conjunctivae normal. Pupils: Pupils are equal, round, and reactive to light. HENT: Jaw: No trismus. Tenderness to palpation of the right TMJ joint Ears: Clear bilaterally TMs within normal limits Nose: Left-sided septal deviation with inferior turban hypertrophy Mouth: Mucous membranes are not pale, not dry and not cyanotic. No oral lesions. Pharynx: Uvula midline. No oropharyngeal exudate or uvula swelling. Tonsils: No tonsillar exudate. No abnormal masses or lesions Thyroid: No significant thyromegaly. Trachea: Trachea and phonation normal. No tracheal deviation. Pulmonary: Effort: Pulmonary effort is normal. No respiratory distress. Breath sounds: No stridor. Musculoskeletal: Head: Normocephalic and atraumatic. Neck: Full passive range of motion without pain, neck supple. Skin: General: Skin is warm and dry. Findings: No erythema or rash. Neurological: Cranial Nerves: No cranial nerve deficit. Sensory: No sensory deficit. Coordination: Coordination normal. Extremities: No significant peripheral edema or varicosities Psychiatric: Mood and Affect: Mood and affect normal. Cognition and Memory: Cognition and memory normal. Procedure note: Rigid nasal endoscopy For consent was obtained using 0 degree endoscope 3 pass technique was done revealing left-sided septal deviation inferior turban hypertrophy ostiomeatal complexes appear patent there is some boggy edema changes consistent with allergic rhinitis no signs of any polyposis nasopharynx clear documented in this [facility]04-01-2025 NoteHNO ID: [id number] Author: NANCY MCNAMARA APRN.BILINGUAL MANAGER Service: ? Author Type: Nurse Practitioner Type: Progress Notes Filed: 09/03/2024 18:33 Note Text: [facility] Subjective Lul Santiago is a 19 year old female. Patient presents with: Sinus Problem: Chest congestion, sneezing, sob started a week ago HPI by patient: Lul Santiago is a 19 year old presenting to the office with the complaint of viral symptoms. Started approximately 1 week ago. Associated symptoms include sore throat from indigestion, cough from indigestion, and fatigue. Has shortness of breath. Denies fever, ear pain, headache, fever, and body aches. Covid Immunization Dates Current Care Gaps Covid-19 Vaccine ( season) Overdue since 02/04/2024 09/30/2020 Imm Admin: COVID-19 original vaccine, age 12+ yr, monovalent (PFIZER-BIONTECH - PURPLE TOP) 09/08/2020 Imm Admin: COVID-19 original vaccine, age 12+ yr, monovalent (PFIZER-BIONTECH - PURPLE TOP) Sick contacts: yes, her boyfriend. Smoking history/second hand smoke: none. OTC not helping. No antibiotic use in the last 60 days. ALLERGIES Penicillins GI Upset Family History Reviewed Including Cardiac Diseases, Psychiatric Diseases, AND Substance Abuse Problem: other (Polyps benign) Relation: Mother Age of Onset: (Not Specified) Problem: Breast Cancer Relation: Maternal great-grandmother Age of Onset: 62 Social History Tobacco Use Smoking status: Never Smokeless tobacco: Never Alcohol use: Never Drug use: Never Active Ambulatory Problems No Active Ambulatory Problems Resolved Ambulatory Problems No Resolved Ambulatory Problems Past Medical History: No date: Asthma No date: GERD (gastroesophageal reflux disease) Review of Systems Constitutional: Positive for fatigue. Negative for fever. HENT: Positive for congestion and sore throat. Eyes: Negative. Respiratory: Positive for cough. Cardiovascular: Negative. Gastrointestinal: Negative. Endocrine: Negative. Genitourinary: Negative. Musculoskeletal: Negative. Skin: Negative. Neurological: Negative. Hematological: Negative. Objective BP 128/79 Pulse 103 Temp 37.4 ?C (99.4 ?F) Resp 16 Wt 56.1 kg (123 lb 9.1 oz) LMP 12/23/2022 SpO2 97% Physical Exam Vitals reviewed. Constitutional: General: She is not in acute distress. Appearance: She is not ill-appearing, toxic-appearing or diaphoretic. HENT: Head: Normocephalic and atraumatic. Right Ear: Tympanic membrane, ear canal and external ear normal. Left Ear: Tympanic membrane, ear canal and external ear normal. Nose: Nose normal. Right Sinus: No maxillary sinus tenderness or frontal sinus tenderness. Left Sinus: No maxillary sinus tenderness or frontal sinus tenderness. Mouth/Throat: Mouth: Mucous membranes are moist. Pharynx: Oropharynx is clear. No oropharyngeal exudate or posterior oropharyngeal erythema. Cardiovascular: Rate and Rhythm: Regular rhythm. Tachycardia present. Pulmonary: Effort: Pulmonary effort is normal. Breath sounds: Normal breath sounds. Lymphadenopathy: Head: Right side of head: No submandibular or tonsillar adenopathy. Left side of head: No submandibular or tonsillar adenopathy. Cervical: No cervical adenopathy. Psychiatric: Behavior: Behavior is cooperative. {ASSESSMENT/PLAN: 1. Viral upper respiratory tract infection with cough - ICD9: 465.9, ICD10: J06.9 (primary diagnosis) - [id number]-LY 2 MG-30 MG-10 MG/5 ML ORAL SYRUP 2. SOB (shortness of breath) - ICD9: 786.05, ICD10: R06.02 - ALBUTEROL SULFATE HFA 90 MCG/ACTUATION AEROSOL INHALER - PREDNISONE 20 MG TABLET Nancy Mcnamara APRN.BILINGUAL MANAGER Education on viral vs bacterial infections. Most viral infections will last 2-3 weeks ago. It is possible to have back to back viral infections. An antibiotic will not treat a virus. -Albuterol for shortness of breath/wheezing. Bromfed for cough/congestion. Prednisone with food. -Drink lots of fluids and get plenty of rest. -Vaporizers, cool mist humidifiers, warm showers, and warm fluids help open respiratory and sinus passages. Clean humidifiers daily. -OTC tylenol as directed on the bottle. -Saline nasal spray as needed. Flonase twice daily can help reduce inflammation through the sinus cavities. -Cough/deep breathing education, promote clearing of the airways and good lung expansion. -Make follow up with primary care for monitoring and resolution in symptoms. -Signs that warrant an ER evaluation: Sudden change/worsening in condition, lethargy, signs of dehydration, fever greater than 102 F that is not responding to Tylenol or ibuprofen (Motrin, Advil), drooling, difficulty swallowing, difficulty breathing, shortness of breath, chest pain, evidence of airway compromise (tripod position, neck extension, retractions), seizures, changes in mental status, or other concerns. Differential Diagnoses - viral upp (more content not included)...[facility]04-01-2025 History of Present illness Narrative* Nancy Mcnamara APRN.BILINGUAL MANAGER - 09/03/2024 6:09 PM EDT [facility] Subjective Lul Santiago is a 19 year old female. Patient presents with: Sinus Problem: Chest congestion, sneezing, sob started a week ago HPI by patient: Lul Santiago is a 19 year old presenting to the office with the complaint of viral symptoms. Started approximately 1 week ago. Associated symptoms include sore throat from indigestion, cough from indigestion, and fatigue. Has shortness of breath. Denies fever, ear pain, headache, fever, and body aches. Covid Immunization Dates Current Care Gaps Covid-19 Vaccine ( season) Overdue since 02/04/2024 09/30/2020 Imm Admin: COVID-19 original vaccine, age 12+ yr, monovalent (PFIZER-BIONTECH - PURPLE TOP) 09/08/2020 Imm Admin: COVID-19 original vaccine, age 12+ yr, monovalent (PFIZER-BIONTECH - PURPLE TOP) Sick contacts: yes, her boyfriend. Smoking history/second hand smoke: none. OTC not helping. No antibiotic use in the last 60 days. ALLERGIES Penicillins GI Upset Family History Reviewed Including Cardiac Diseases, Psychiatric Diseases, & Substance Abuse Problem: other (Polyps benign) Relation: Mother Age of Onset: (Not Specified) Problem: Breast Cancer Relation: Maternal great-grandmother Age of Onset: 62 Social History Tobacco Use Smoking status: Never Smokeless tobacco: Never Alcohol use: Never Drug use: Never Active Ambulatory Problems No Active Ambulatory Problems Resolved Ambulatory Problems No Resolved Ambulatory Problems Past Medical History: No date: Asthma No date: GERD (gastroesophageal reflux disease) Review of Systems Constitutional: Positive for fatigue. Negative for fever. HENT: Positive for congestion and sore throat. Eyes: Negative. Respiratory: Positive for cough. Cardiovascular: Negative. Gastrointestinal: Negative. Endocrine: Negative. Genitourinary: Negative. Musculoskeletal: Negative. Skin: Negative. Neurological: Negative. Hematological: Negative. Objective BP 128/79 Pulse 103 Temp 37.4 C (99.4 F) Resp 16 Wt 56.1 kg (123 lb 9.1 oz) LMP 12/23/2022 SpO2 97% Physical Exam Vitals reviewed. Constitutional: General: She is not in acute distress. Appearance: She is not ill-appearing, toxic-appearing or diaphoretic. HENT: Head: Normocephalic and atraumatic. Right Ear: Tympanic membrane, ear canal and external ear normal. Left Ear: Tympanic membrane, ear canal and external ear normal. Nose: Nose normal. Right Sinus: No maxillary sinus tenderness or frontal sinus tenderness. Left Sinus: No maxillary sinus tenderness or frontal sinus tenderness. Mouth/Throat: Mouth: Mucous membranes are moist. Pharynx: Oropharynx is clear. No oropharyngeal exudate or posterior oropharyngeal erythema. Cardiovascular: Rate and Rhythm: Regular rhythm. Tachycardia present. Pulmonary: Effort: Pulmonary effort is normal. Breath sounds: Normal breath sounds. Lymphadenopathy: Head: Right side of head: No submandibular or tonsillar adenopathy. Left side of head: No submandibular or tonsillar adenopathy. Cervical: No cervical adenopathy. Psychiatric: Behavior: Behavior is cooperative. {ASSESSMENT/PLAN: 1. Viral upper respiratory tract infection with cough - ICD9: 465.9, ICD10: J06.9 (primary diagnosis) - DEZKUIIBGGDMSDA-RHHCTPRJJAVDLYD-YS 2 MG-30 MG-10 MG/5 ML ORAL SYRUP 2. SOB (shortness of breath) - ICD9: 786.05, ICD10: R06.02 - ALBUTEROL SULFATE HFA 90 MCG/ACTUATION AEROSOL INHALER - PREDNISONE 20 MG TABLET Nnacy Mcnamara APRN.CNP Education on viral vs bacterial infections. Most viral infections will last 2-3 weeks ago. It is possible to have back to back viral infections. An antibiotic will not treat a virus. -Albuterol for shortness of breath/wheezing. Bromfed for cough/congestion. Prednisone with food. -Drink lots of fluids and get plenty of rest. -Vaporizers, cool mist humidifiers, warm showers, and warm fluids help open respiratory and sinus passages. Clean humidifiers daily. -OTC tylenol as directed on the bottle. -Saline nasal spray as needed. Flonase twice daily can help reduce inflammation through the sinus cavities. -Cough/deep breathing education, promote clearing of the airways and good lung expansion. -Make follow up with primary care for monitoring and resolution in symptoms. -Signs that warrant an ER evaluation: Sudden change/worsening in condition, lethargy, signs of dehydration, fever greater than 102 F thatis not responding to Tylenol or ibuprofen (Motrin, Advil), drooling, difficulty swallowing, difficulty breathing, shortness of breath, chest pain, evidence of airway compromise (tripod position, neck extension, retractions), seizures, changes in mental status, or other concerns. Differential Diagnoses - viral upper respiratory infection with cough is more likely for the following reason(s): suggested by H&P - pneumonia is less likely for the following reason(s): H&P not suggestive Disposition The patient was discharged. OTC Medications were advised: Tylenol and flonase. The patient will pursue further outpatient evaluation with the primary care physician or another Urgent Care/Express Care as outlined in the after visit summary. The patient is agreeable to this planof care and follow-up instructions have been explained in detail. The patient has received these instructions in written format and have expressed an understanding of the after visit summary. Medical Decision Making: Level: 4 - Moderate I spent a total of 20 minutes on the date of the service which included preparing to see the patient, jpnu-[id number] patient care, completing clinical documentation, obtaining and/or reviewing separately obtained history, performing a medically appropriate examination, counseling and educating the pat ient/family/caregiver, and ordering medications, tests, or procedures. documented in this encounterWay[facility]04-01-2025 Instructions* Patient Instructions* Nancy Mcnamara APRN.CNP - 09/03/2024 6:09 PM EDT (J06.9) Viral upper respiratory tract infection with cough (primary encounter diagnosis) Plan: Mxialwcidzrhasx-Dwpayidmh-NQ (BROMFED DM) 2-30-10 mg/5 mL syrup (R06.02) SOB (shortness of breath) Plan: albuterol HFA (PROVENTIL HFA, VENTOLIN HFA) 90 mcg/actuation inhaler Education on viral vs bacterial infections. Most viral infections will last 2-3 weeks ago. It is possible to have back to back viral infections. An antibiotic will not treat a virus. -Will offer strep and viral testing. -Albuterol for shortness of breath/wheezing. Bromfed for cough/congestion. Prednisone with food. -Drink lots of fluids and get plenty of rest. -Vaporizers, cool mist humidifiers, warm showers, and warm fluids help open respiratory and sinus passages. Clean humidifiers daily. -OTC tylenol as directed on the bottle. -Saline nasal spray as needed. Flonase twice daily can help reduce inflammation through the sinus cavities. -Cough/deep breathing education, promote clearing of the airways and good lung expansion. -Make follow up with primary care for monitoring and resolution in symptoms. -Signs that warrant an ER evaluation: Sudden change/worsening in condition, lethargy, signs of dehydration, fever greater than 102 F thatis not responding to Tylenol or ibuprofen (Motrin, Advil), drooling, difficulty swallowing, difficulty breathing, shortness of breath, chest pain, evidence of airway compromise (tripod position, neck extension, retractions), seizures, changes in mental status, or other concerns. documented in this encounterWayne [facility]03-14-2025 History of Present illness Narrative* Artemio Houser RT(R) - 08/16/2024 4:00 PM EDT Radiology Service Progress Note PATIENT NAME: Lul Santiago DATE OF SERVICE: August 16, 2024 TIME: 4:29 PM PATIENT IDENTITY VERIFICATION COMPLETED USING TWO (2) IDENTIFIERS: Name and Date of confirmedby patient verbally and Name and Date of confirmed by identification band. FALL SCREENING: Has the patient had 2 falls in the last year or 1 fall with injury or currently using an Ambulatory Assistive Device (Walker, Cane, Wheelchair, Crutches, etc.)? No PATIENT GENDER DATA: Assigned female at . status: : No status:NO. PATIENT RELEVANT IMPLANT DATA REVIEWED: Yes PATIENT PRESENTS WITH AN IMPLANTABLE OR ATTACHED DOWEL PIN WORKER: No RADIOLOGY DEPARTMENT: MR; Exam(s) Completed: Head: Pituitary PERIPHERAL IV DATA: Site assessment: Clean,Dry and Intact, Site disposition Discontinued SIGNED BY: RT Aga(Seda) August 16, 2024 4:29 PM documented in this encounterWayne Healthcare [facility]03-14-2025 NoteHNO ID: [id number] Author: ARTEMIO HOUSER RT(Seda) Service: Radiology Author Type: Technologist Type: Progress Notes Filed: 08/16/2024 16:29 Note Text: Radiology Service Progress Note PATIENT NAME: Lul Santiago DATE OF SERVICE: August 16, 2024 TIME: 4:29 PM PATIENT IDENTITY VERIFICATION COMPLETED USING TWO (2) IDENTIFIERS: Name and Date of confirmed by patient verbally and Name and Date of confirmed by identification band. FALL SCREENING: Has the patient had 2 falls in the last year or 1 fall with injury or currently using an Ambulatory Assistive Device (Walker, Cane, Wheelchair, Crutches, etc.)? No PATIENT GENDER DATA: Assigned female at . status: : No status: NO. PATIENT RELEVANT IMPLANT DATA REVIEWED: Yes PATIENT PRESENTS WITH AN IMPLANTABLE OR ATTACHED DOWEL PIN WORKER: No RADIOLOGY DEPARTMENT: MR; Exam(s) Completed: Head: Pituitary PERIPHERAL IV DATA: Site assessment: Clean,Dry and Intact, Site disposition Discontinued SIGNED BY: RT Aga(R) August 16, 2024 4:29 PMBrecksville [facility] [id number] Nurse Note* Jessica Saab RN - 08/16/2024 4:00 PM EDT Radiology Service Progress Note DATE OF SERVICE: August 16, 2024 TIME: 4:16 PM PATIENT WEIGHT: 123LBS PATIENT IDENTITY VERIFICATION COMPLETED USING TWO (2) STANDARD IDENTIFIERS: Name and Date of confirmed by patient verbally and Name and Date of confirmed by identification band. FALL SCREENING: Has the patient had 2 falls in the last year or 1 fall with injury or currently using an Ambulatory Assistive Device (Walker, Cane, Wheelchair, Crutches, etc.)? No PATIENT GENDER DATA: Assigned female at . status: Unknown status: unknown ALLERGIES: Reviewed and unchanged CONTRAST ALLERGY: No EXAM: MRI - CONTRAST TYPE: GROUP II IV SITE: Ambulatory: A peripheral IV was started in the Right with a Angio cath: 22 gauge. IV SITE APPEARANCE: Clean,Dry and Intact SIGNATURE: Jessica Saab RN PATIENT NAME: Lul Santiago DATE: August 16, 2024 TIME: 4:16 PM [facility]03-14-[facility] Nurse Note* Jessica Saab RN - 08/16/2024 4:00 PM EDT Radiology Service Progress Note DATE OF SERVICE: August 16, 2024 TIME: 4:16 PM PATIENT WEIGHT: 123LBS PATIENT IDENTITY VERIFICATION COMPLETED USING TWO (2) STANDARD IDENTIFIERS: Name and Date of confirmed by patient verbally and Name and Date of confirmed by identification band. FALL SCREENING: Has the patient had 2 falls in the last year or 1 fall with injury or currently using an Ambulatory Assistive Device (Walker, Cane, Wheelchair, Crutches, etc.)? No PATIENT GENDER DATA: Assigned female at . status: Unknown status: unknown ALLERGIES: Reviewed and unchanged CONTRAST ALLERGY: No EXAM: MRI - CONTRAST TYPE: GROUP II IV SITE: Ambulatory: A peripheral IV was started in the Right with a Angio cath: 22 gauge. IV SITE APPEARANCE: Clean,Dry and Intact SIGNATURE: Jessica Saab RN PATIENT NAME: Lul Santiago DATE: August 16, 2024 TIME: 4:16 PM documented in this encounterWayne Healthcare [facility]02-03-2025 Instructions* Patient Instructions* Jairo Atkins PA-C - 07/08/2024 4:55 PM EST ASSESSMENT/PLAN: 1. Dysuria H/o IC Will wait until urine culture to treat - UA DIP, URINE (POC) - BACTERIAL CULTURE, URINE- Urine culture sent to the lab. Will contact in 2-3 days with results. (Usually Macrobid or Bactrim) 2. Vaginal odor - BACTERIAL VAGINOSIS NAAT- would treat with Flagyl - RODRIGO/TRICHOMONAS NAAT- would treat with Diflucan Call PCP if sx worsen or no better in 2-3 days. If symptoms worsen, or new symptoms develop go to ER. If you develop fever, chills, worsening back pain, worsening abdominal pain, or new symptoms- see your PCP immediately or go to ER. Follow up as needed. Barriers to Learning: None. Barriers to Learning: Age. Here with a parent. The patient is instructed to return or seek emergency treatment if symptoms become worse or with any acute change in condition. The patient verbalizes understanding and is in agreement with plan of care. Jairo Atkins PA-C documented in this encounterWayne [facility]02-03-2025 NoteHNO ID: [id number] Author: JAIRO ATKINS PA-C Service: ? Author Type: Physician Travel Consultant Type: Progress Notes Filed: 07/08/2024 17:02 Note Text: 07/08/2024 Patient presents with: Urinary Tract Infection: burning, odor - has vaginal smell, started last SUBJECTIVE: This is a 19 year old with IC that is here today for possible UTI symptoms. HPI per the patient. The patient complains of vaginal odor and dysuria. She has IC and so, it is not uncommon for her to have dysuria. She wants to r/o a UTI. She also states that with the IC she "always" has microscopic hematuria. She has a urologist. Due to the vaginal odor she is concerned for BV. She state the urine does not have abnormal odor. It is the vagina. She denies any discharge or itching/irritation. She denies fever, chills, abominal pain, lower abdominal pressure, bladder spasms, back pain, or n/v. The patient denies any discharge, lesions, odor, change in sexual partners, or concern for STIs. Dysuria pain: - out of 10 with 10 being the worst pain. The lower abdominal pain is - out of 10 with 10 being the worst pain. The back/flank pain is - out of 10 with 10 being the worst pain. Self-treatment:. none The severity is mild and the symptoms are not improving. The patient has not had similar symptoms in the last 3 months. The patient has not had an antibiotic in the last 3 months. LMP:. 2 weeks ago Reviewed meds, OTCs and supplements. Meds reviewed. Allergies and medications reviewed. Reviewed allergies, medications, social history, and past medical history. Barriers to learning: none. PAST MEDICAL HISTORY Diagnosis Date Asthma GERD (gastroesophageal reflux disease) ALLERGIES Penicillins MEDICATIONS Current Outpatient Medications Medication Sig albuterol HFA (PROVENTIL HFA, VENTOLIN HFA) 90 mcg/actuation inhaler inhale 1 to 2 puffs by mouth and INTO THE LUNGS every 4 to 6 hours if needed for cough for 5 days ELURYNG 0.12-0.015 mg/24 hr vaginal ring INSERT ONE RING VAGINALLY AND LEAVE IN PLACE FOR 3 WEEKS, THEN REMOVE FOR ONE WEEK hydrOXYzine HCl (ATARAX) 25 mg tablet SKYRIZI 150 mg/mL injection tiZANidine (ZANAFLEX) 2 mg tablet TAKE 1 TABLET ORALLY EVERY 8 HOURS NEEDED FOR MUSCLE SPASM dicyclomine (BENTYL) 10 mg capsule Take 2 capsules by mouth three times a day. famotidine (PEPCID) 40 mg tablet Take 40 mg by mouth daily at bedtime. Levonorgestrel-Ethinyl Estrad (LESSINA) 0.1mg - 20mcg per tablet Take 1 tablet by mouth once daily. (Patient not taking: Reported on 11/10/2023) escitalopram oxalate (LEXAPRO) 10 mg tablet Take 10 mg by mouth once daily. (Patient not taking: Reported on 11/10/2023) montelukast (SINGULAIR) 10 mg tablet Take 10 mg by mouth once daily. (Patient not taking: Reported on 11/10/2023) No current facility-administered medications for this visit. Medications and allergies reviewed by this provider. SOCIAL HISTORY Social History Tobacco Use Smoking status: Never Smokeless tobacco: Never Substance Use Topics Alcohol use: Never Drug use: Never REVIEW OF SYSTEMS ROS: constitutional-neg, heent-neg, heart-neg, respiratory-neg, GI-neg, -concern for UTI, vaginal odor, skin-neg, lymph-neg, neuro-neg, psych-neg- All systems neg except as noted above in HPI. OBJECTIVE: BP 123/71 Pulse 115 Resp 16 Wt 55.8 kg (123 lb 2 oz) LMP 12/23/2022 SpO2 98% . Vital signs reviewed by this provider. Physical Exam Vitals reviewed. Constitutional: General: She is not in acute distress. Appearance: Normal appearance. She is well-developed and normal weight. She is not ill-appearing, toxic-appearing or diaphoretic. Cardiovascular: Rate and Rhythm: Normal rate and regular rhythm. Heart sounds: Normal heart sounds. Pulmonary: Effort: Pulmonary effort is normal. Breath sounds: Normal breath sounds and air entry. Abdominal: General: Abdomen is flat. Bowel sounds are normal. Palpations: Abdomen is soft. Tenderness: There is no abdominal tenderness. There is no right CVA tenderness, left CVA tenderness, guarding or rebound. Neurological: Mental Status: She is alert. Psychiatric: Behavior: Behavior is cooperative. ASSESSMENT/PLAN: 1. Dysuria - ICD9: 788.1, ICD10: R30.0 (primary diagnosis) H/o IC Will wait until urine culture to treat - UA DIP, URINE (POC) She states that with the IC she "always" has microscopic hematuria. - BACTERIAL CULTURE, URINE- Urine culture sent to the lab. Will contact in 2-3 days with results. (Usually Macrobid or Bactrim) 2. Vaginal odor - ICD9: 625.8, ICD10: N89.8 - BACTERIAL VAGINOSIS NAAT- would treat with Flagyl - RODRIGO/TRICHOMONAS NAAT- would treat with Diflucan Call PCP if sx worsen or no better in 2-3 days. If symptoms worsen, or new symptoms develop go to ER. If you develop fever, chills, worsening back pain, worsening abdominal pain, or new symptoms- see your PCP immediately or go to ER. Follow up as nee (more content not included)...[facility] 07-08-2024 History of Present illness Narrative* Jairo Atkins PA-C - 07/08/2024 4:53 PM EST 07/08/2024 Patient presents with: Urinary Tract Infection: burning, odor - has vaginal smell, started last SUBJECTIVE: This is a 19 year old with IC that is here today for possible UTI symptoms. HPI per the patient. The patient complains of vaginal odor and dysuria. She has IC and so, it is not uncommon for her to have dysuria. She wants to r/o a UTI. She also states that with the IC she "always" has microscopic hematuria. She has a urologist. Due to the vaginal odor she is concerned for BV. She state the urine does not have abnormal odor. It is the vagina. She denies any discharge or itching/irritation. She denies fever, chills, abominal pain, lower abdominal pressure, bladder spasms, back pain, or n/v. The patient denies any discharge, lesions, odor, change in sexual partners, or concern for STIs. Dysuria pain: - out of 10 with 10 being the worst pain. The lower abdominal pain is - out of 10 with 10 being the worst pain. The back/flank pain is - out of 10 with 10 being the worst pain. Self-treatment:. none The severity is mild and the symptoms are not improving. The patient has not had similar symptoms in the last 3 months. The patient has not had an antibiotic in the last 3 months. LMP:. 2 weeks ago Reviewed meds, OTCs and supplements. Meds reviewed. Allergies and medications reviewed. Reviewed allergies, medications, social history, and past medical history. Barriers to learning: none. PAST MEDICAL HISTORY Diagnosis Date Asthma GERD (gastroesophageal reflux disease) ALLERGIES Penicillins MEDICATIONS Current Outpatient Medications Medication Sig albuterol HFA (PROVENTIL HFA, VENTOLIN HFA) 90 mcg/actuation inhaler inhale 1 to 2 puffs by mouth and INTO THE LUNGS every 4 to 6 hours if needed for cough for 5 days ELURYNG 0.12-0.015 mg/24 hr vaginal ring INSERT ONE RING VAGINALLY AND LEAVE IN PLACE FOR 3 WEEKS, THEN REMOVE FOR ONE WEEK hydrOXYzine HCl (ATARAX) 25 mg tablet SKYRIZI 150 mg/mL injection tiZANidine (ZANAFLEX) 2 mg tablet TAKE 1 TABLET ORALLY EVERY 8 HOURS NEEDED FOR MUSCLE SPASM dicyclomine (BENTYL) 10 mg capsule Take 2 capsules by mouth three times a day. famotidine (PEPCID) 40 mg tablet Take 40 mg by mouth daily at bedtime. Levonorgestrel-Ethinyl Estrad (LESSINA) 0.1mg - 20mcg per tablet Take 1 tablet by mouth once daily.(Patient not taking: Reported on 11/10/2023) escitalopram oxalate (LEXAPRO) 10 mg tablet Take 10 mg by mouth once daily. (Patient not taking: Reported on 11/10/2023) montelukast (SINGULAIR) 10 mg tablet Take 10 mg by mouth once daily. (Patient not taking: Reported on 11/10/2023) No current facility-administered medications for this visit. Medications and allergies reviewed by this provider. SOCIAL HISTORY Social History Tobacco Use Smoking status: Never Smokeless tobacco: Never Substance Use Topics Alcohol use: Never Drug use: Never REVIEW OF SYSTEMS ROS: constitutional-neg, heent-neg, heart-neg, respiratory-neg, GI-neg, - concern for UTI, vaginalodor, skin-neg, lymph-neg, neuro-neg, psych-neg- All systems neg except as noted above in HPI. OBJECTIVE: BP 123/71 Pulse 115 Resp 16 Wt 55.8 kg (123 lb 2 oz) LMP 12/23/2022 SpO2 98% . Vital signs reviewed by this provider. Physical Exam Vitals reviewed. Constitutional: General: She is not in acute distress. Appearance: Normal appearance. She is well-developed and normal weight. She is not ill-appearing, toxic-appearing or diaphoretic. Cardiovascular: Rate and Rhythm: Normal rate and regular rhythm. Heart sounds: Normal heart sounds. Pulmonary: Effort: Pulmonary effort is normal. Breath sounds: Normal breath sounds and air entry. Abdominal: General: Abdomen is flat. Bowel sounds are normal. Palpations: Abdomen is soft. Tenderness: There is no abdominal tenderness. There is no right CVA tenderness, left CVA tenderness, guarding or rebound. Neurological: Mental Status: She is alert. Psychiatric: Behavior: Behavior is cooperative. ASSESSMENT/PLAN: 1. Dysuria - ICD9: 788.1, ICD10: R30.0 (primary diagnosis) H/o IC Will wait until urine culture to treat - UA DIP, URINE (POC) She states that with the IC she "always" has microscopic hematuria. - BACTERIAL CULTURE, URINE- Urine culture sent to the lab. Will contact in 2-3 days with results. (Usually Macrobid or Bactrim) 2. Vaginal odor - ICD9: 625.8, ICD10: N89.8 - BACTERIAL VAGINOSIS NAAT- would treat with Flagyl - RODRIGO/TRICHOMONAS NAAT- would treat with Diflucan Call PCP if sx worsen or no better in 2-3 days. If symptoms worsen, or new symptoms develop go to ER. If you develop fever, chills, worsening back pain, worsening abdominal pain, or new symptoms- see your PCP immediately or go to ER. Follow up as needed. Barriers to Learning: None. Barriers to Learning: Age. Here with a parent. The patient is instructed to return or seek emergency treatment if symptoms become worse or with any acute change in condition. The patient verbalizes understanding and is in agreement with plan of care. Jairo Atkins PA-C Medical Decision Making: Problems: Moderate: New problem with uncertain prognosis Data: Unique test result(s) reviewed: 1 Unique test(s) ordered: 3+ Risk: Low: Low risk from testing/treatment Medical Decision Making Level: 4 - Moderate I spent a total of 20 minutes on the date of the service which included preparing to see the patient, sryo-hl-uvne patient care, completing clinical documentation, performing a medically appropriate examination, counseling and educating the patient/family/caregiver, ordering medications, tests, or p rocedures, and communicating results to the patient/family/caregiver. documented in this encounterWayne [facility]01-28-2025 Telephone encounter Note * Telephone Encounter - Nell Goddard RN - 07/02/2024 12:04 PM EST Reason for Disposition [1] Follow-up call to recent contact AND [2] information only call, no triage required Protocols used: Information Only Call - No [id number] S: Pt calling [facility] after missing a call from her PCP office. B: Pt states message just said to call back. A: No message left to give patient. R: Pt will call the office when open for assistance. [facility] [id number] Miscellaneous Notes* Telephone Encounter - Nell Goddard RN - 07/02/2024 12:04 PM EST Reason for Disposition [1] Follow-up call to recent contact AND [2] information only call, no triage required Protocols used: Information Only Call - No [id number] S: Pt calling [facility] after missing a call from her PCP office. B: Pt states message just said to call back. A: No message left to give patient. R: Pt will call the office when open for assistance. documented in this [facility]01-26-2025 NoteIMPRESSION: Question of a sellar lesion, suggest further evaluation with dedicated pituitary MRI. No evidence of an acute intracranial process. Safety Physician: PSCB Transcribe Date/Time: Jun 30 2024 1:53P Dictated by : HA AVALOS MD This examination was interpreted and the report reviewed and electronically signed by: HA AVALOS MD on Jun 30 2024 2:12PM EST [place] [id number] History of Present illness Narrative* Courtney Knapp, transmitter supervisor - 06/30/2024 12:40 PM EST Radiology Service Progress Note DATE OF SERVICE: June 30, 2024 TIME: 1:40 PM PATIENT IDENTITY VERIFICATION COMPLETED USING TWO (2) STANDARD IDENTIFIERS: Name and Date of confirmed by patient verbally and Name and Date of confirmed by identification band. FALL SCREENING: Has the patient had 2 falls in the last year or 1 fall with injury or currently using an Ambulatory Assistive Device (Walker, Cane, Wheelchair, Crutches, etc.)? No PATIENT GENDER DATA: Assigned female at . status: : No status:NO. PATIENT RELEVANT IMPLANT DATA REVIEWED: Yes PATIENT PRESENTS WITH AN IMPLANTABLE OR ATTACHED DOWEL PIN WORKER: No ALLERGIES: Reviewed and unchanged CONTRAST ALLERGY: NO. EXAM: MRI - CONTRAST TYPE: GROUP II PERIPHERAL IV DATA: Ambulatory: A peripheral IV was started in the Right antecubital site with a Butterfly: 23 gauge. RADIOLOGY DEPARTMENT: MR; Exam(s) Completed: Head: Routine Brain SIGNATURE: AYAKA Tariq PATIENT NAME: Lul Santiago DATE: June 30, 2024 TIME: 1:40 PM documented in this encounterWayne Healthcare [facility] Campus01-26-2025 NoteHNO ID: [id number] Author: COURTNEY KNAPP MRI Tech Service: Radiology Author Type: Manager Office Type: Progress Notes Filed: 06/30/2024 13:40 Note Text: Radiology Service Progress Note DATE OF SERVICE: June 30, 2024 TIME: 1:40 PM PATIENT IDENTITY VERIFICATION COMPLETED USING TWO (2) STANDARD IDENTIFIERS: Name and Date of confirmed by patient verbally and Name and Date of confirmed by identification band. FALL SCREENING: Has the patient had 2 falls in the last year or 1 fall with injury or currently using an Ambulatory Assistive Device (Walker, Cane, Wheelchair, Crutches, etc.)? No PATIENT GENDER DATA: Assigned female at . status: : No status: NO. PATIENT RELEVANT IMPLANT DATA REVIEWED: Yes PATIENT PRESENTS WITH AN IMPLANTABLE OR ATTACHED DOWEL PIN WORKER: No ALLERGIES: Reviewed and unchanged CONTRAST ALLERGY: NO. EXAM: MRI - CONTRAST TYPE: GROUP II PERIPHERAL IV DATA: Ambulatory: A peripheral IV was started in the Right antecubital site with a Butterfly: 23 gauge. RADIOLOGY DEPARTMENT: MR; Exam(s) Completed: Head: Routine Brain SIGNATURE: Courtney Knapp, transmitter supervisor PATIENT NAME: Lul Santiago DATE: June 30, 2024 TIME: 1:40 PMBrecksville Va / Crille [id number] History of Present illness Narrative* Chikis Jimenez PA-C - 06/04/2024 3:45 PM EST Subjective Patient ID: Lul Santiago is a 19 y.o. female. They present today with a chief complaint of Flu Symptoms. History of Present Illness Pt states symptoms started 3-4 days ago. All family members are sick but all tested negative for COVID. Denies SOB, chest tightness but reports lingering cough and congestion. Hx of asthma and psoriatic arthritis. On Skyrizi injection. No fever but states usually never got fever when had infection due to immunocompromised condition. 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 Flu Symptoms Presenting symptoms: cough and rhinorrhea Presenting symptoms: no diarrhea, no fatigue, no fever, no nausea, no shortness of breath, no sore throat and no vomiting Associated symptoms: chills and nasal congestion Past Medical History Allergies as of 06/04/2024 - Reviewed 06/04/2024 Allergen Reaction Noted Bromfed [brompheniramine-pseudoephedrin] Shortness of breath 06/04/2024 Penicillins GI Upset 01/03/2023 Nirmatrelvir-ritonavir Hives 06/04/2024 (Not in a hospital admission) History reviewed. No pertinent past medical history. History reviewed. No pertinent surgical history. reports that she has never smoked. She has been exposed to tobacco smoke. She has never used smokeless tobacco. Alcohol use questions deferred to the physician. Review of Systems Review of Systems Constitutional: Positive for chills. Negative for fatigue and fever. HENT: Positive for congestion and rhinorrhea. Negative for sinus pressure, sinus pain and sore throat. Respiratory: Positive for cough. Negative for chest tightness, shortness of breath and wheezing. Cardiovascular: Negative for chest pain. Gastrointestinal: Negative for abdominal pain, diarrhea, nausea and vomiting. Musculoskeletal: Negative for arthralgias and joint swelling. Skin: Negative for rash. Psychiatric/Behavioral: Negative for agitation and confusion. Objective Vitals: 06/04/24 1518 BP: 113/76 BP Location: Right arm Patient Position: Sitting BP Cuff Size: Adult Pulse: 100 Resp: 18 Temp: 37 C (98.6 F) TempSrc: Oral SpO2: 98% Weight: 55.2 kg (121 lb 9.6 oz) Height: 1.6 m (5' 3") Patient's last menstrual period was 05/27/2024 (exact date). Physical Exam Constitutional: Appearance: Normal appearance. HENT: Head: Normocephalic and atraumatic. Right Ear: Tympanic membrane, ear canal and external ear normal. Left Ear: Tympanic membrane, ear canal and external ear normal. Nose: Congestion present. No rhinorrhea. Mouth/Throat: Pharynx: No posterior oropharyngeal erythema. Cardiovascular: Rate and Rhythm: Normal rate and regular rhythm. Heart sounds: No murmur heard. Pulmonary: Effort: Pulmonary effort is normal. Breath sounds: Normal breath sounds. No wheezing. Abdominal: General: Abdomen is flat. Palpations: Abdomen is soft. Musculoskeletal: General: Normal range of motion. Neurological: Mental Status: She is alert and oriented to person, place, and time. Psychiatric: Mood and Affect: Mood normal. Procedures Point of Care Test & Imaging Results from this visit Results for orders placed or performed in visit on 06/04/24 POCT Influenza A/B manually resulted Result Value Ref Range POC Rapid Influenza A Negative Negative POC Rapid Influenza B Negative Negative No results found. Diagnostic study results (if any) were reviewed by Chikis Jimenez PA-C. Assessment/Plan Allergies, medications, history, and pertinent labs/EKGs/Imaging reviewed by Chikis Jimenez PA-C. Medical Decision Making Rapid Flu negative Suspicious for lingering viral syndrome/bronchitis, cannot completely r/o asthma exacerbation but at this point pneumonia less likely, no signs of respiratory distress Orders and Diagnoses Diagnoses and all orders for this visit: Mild intermittent asthma with exacerbation ([facility]) - azithromycin (Zithromax) 250 mg tablet; Take 2 tabs (500 mg) by mouth today, than 1 daily for 4 days. Flu-like symptoms - POCT Influenza A/B manually resulted Bronchitis - azithromycin (Zithromax) 250 mg tablet; Take 2 tabs (500 mg) by mouth today, than 1 daily for 4 days. - benzonatate (Tessalon) 200 mg capsule; Take 1 capsule (200 mg) by mouth 3 times a day as needed for cough for up to 7 days. Do not crush or chew. Medical Admin Record Patient disposition: Home Electronically signed by Chikis Jimenez PA-C 3:49 PM [facility] Work Phone: [phone]) 222-134412-31-2024 Instructions* Patient Instructions* Chikis Jimenez PA-C - 06/04/2024 3:45 PM EST Take medications as instructed, continue OTC cold meds, rest, hydration F/U with PCP for lingering symptoms ER for red flags documented in this encounterC[facility] Work Phone: [phone]) 513-879406-07-2024 NoteHNO ID: [id number] Author: ARTEMIO CHANDLER MD Service: ? Author Type: Physician Type: Progress Notes Filed: 12/09/2023 10:07 Note Text: Chief Complaint: Back Pain History: 18 year old female here today for evaluation of back pain. Referred for our thoughts by Dr. Alexis Back discomfort has been occasionally as high as 6-7/10 Patient states that currently she is having minimal pain issues Pain in the past is exacerbated by: prolonged lifting. hyperextension bothers her Has seen PT in the past.. NSAID Trial: yes The patient does not complain of radicular lower extremity pain, also no numbness, no paresthesias, no motor weakness. No night pain. No bowel or bladder issues. No symptoms of neurogenic claudication Further review of systems notes No History of additional contributory Ophthalmic,auditory,dermatologic,rheumatologic, psychiatric, GI, , Cardiac, Pulmonary or Neurologic issues. PAST MEDICAL HISTORY Diagnosis Date Asthma GERD (gastroesophageal reflux disease) PAST SURGICAL HISTORY Procedure Laterality Date ALVEOLOPLASTY NOT IN CONJUNCTION WITH EXTRACTIONS - ONE TO THREE TEETH OR TOOTH SPACES, PER QUADRANT Current Outpatient Medications on File Prior to Visit Medication Sig Levonorgestrel-Ethinyl Estrad (LESSINA) 0.1mg - 20mcg per tablet Take 1 tablet by mouth once daily. (Patient not taking: Reported on 11/10/2023) escitalopram oxalate (LEXAPRO) 10 mg tablet Take 10 mg by mouth once daily. (Patient not taking: Reported on 11/10/2023) famotidine (PEPCID) 40 mg tablet Take 40 mg by mouth daily at bedtime. (Patient not taking: Reported on 11/10/2023) montelukast (SINGULAIR) 10 mg tablet Take 10 mg by mouth once daily. (Patient not taking: Reported on 11/10/2023) No current facility-administered medications on file prior to visit. Allergies: Penicillins FAMILY HISTORY Problem Relation Age of Onset other (Polyps benign) Mother Breast Cancer Maternal great-grandmother 62 Family History of scoliosis NA Examination: Lul Santiago is an alert and healthy appearing well hydrated and nourished 18 year old y/o female in no acute distress. Alert and oriented x 3. Normal mood and affect. External appearance of the eyes, ears and nose is normal. Hearing is grossly intact. Respirations are unlabored with normal chest expansion. Speech is clear and auditory acuity is grossly within normal limits. No torticollis is noted. Gaze is not disconjugate. Skin is free of lesions to include significant cafe au lait spots. Examination of the patient's gait shows it to be symmetric, non-antalgic and tandem. Lower extremity motor strength is 5/5 throughout. Deep tendon reflexes are 2+ and symmetric, toes are down going. No clonus. Extremities are warm and well perfused. Sensation is intact. Negative SLR On Seals forward bending test there is no rib prominence. Waist symmetry is nl. Shoulder symmetry is nl Motor is 5/5 DTR 2+ B symmetric Xray: L5 spondylolysis Gap in pars from long standing injury Risser 5 Impression: L5 spondylolysis Plan: Discussed operative management, but patient states she would prefer conservative management at this time. Discussed pars repair. Also discussed issues with fusion. Will pursue another round of PT for Enpocket 1000 for heavy pain Would like to see volume rendering CT to fully assess the pars size (gap) for potential repair if pain worsens. Artemio Chandler [facility]06-07-2024 History of Present illness Narrative* Artemio Chandler MD - 11/10/2023 3:19 PM EDT Chief Complaint: Back Pain History: 18 year old female here today for evaluation of back pain. Referred for our thoughts by Dr. Alexis Back discomfort has been occasionally as high as Patient states that currently she is having minimal pain issues Pain in the past is exacerbated by: prolonged lifting. hyperextension bothers her Has seen PT in the past.. NSAID Trial: yes The patient does not complain of radicular lower extremity pain, also no numbness, no paresthesias,no motor weakness. No night pain. No bowel or bladder issues. No symptoms of neurogenic claudication Further review of systems notes No History of additional contributory Ophthalmic,auditory,dermatologic,rheumatologic, psychiatric, GI, , Cardiac, Pulmonary or Neurologic issues. PAST MEDICAL HISTORY Diagnosis Date Asthma GERD (gastroesophageal reflux disease) PAST SURGICAL HISTORY Procedure Laterality Date ALVEOLOPLASTY NOT IN CONJUNCTION WITH EXTRACTIONS - ONE TO THREE TEETH OR TOOTH SPACES, PER QUADRANT Current Outpatient Medications on File Prior to Visit Medication Sig Levonorgestrel-Ethinyl Estrad (LESSINA) 0.1mg - 20mcg per tablet Take 1 tablet by mouth once daily.(Patient not taking: Reported on 11/10/2023) escitalopram oxalate (LEXAPRO) 10 mg tablet Take 10 mg by mouth once daily. (Patient not taking: Reported on 11/10/2023) famotidine (PEPCID) 40 mg tablet Take 40 mg by mouth daily at bedtime. (Patient not taking: Reported on 11/10/2023) montelukast (SINGULAIR) 10 mg tablet Take 10 mg by mouth once daily. (Patient not taking: Reported on 11/10/2023) No current facility-administered medications on file prior to visit. Allergies: Penicillins FAMILY HISTORY Problem Relation Age of Onset other (Polyps benign) Mother Breast Cancer Maternal great-grandmother 62 Family History of scoliosis NA Examination: Lul Santiago is an alert and healthy appearing well hydrated and nourished 18 year old y/o femalein no acute distress. Alert and oriented x 3. Normal mood and affect. External appearance of the eyes, ears and nose is normal. Hearing is grossly intact. Respirations are unlabored with normal chest expansion. Speech is clear and auditory acuity is grossly within normal limits. No torticollis is noted. Gaze is not disconjugate. Skin is free of lesions to include significant cafe au lait spots. Examination of the patient's gait shows it to be symmetric, non-antalgic and tandem. Lower extremity motor strength is 5/5 throughout. Deep tendon reflexes are 2+ and symmetric, toes are down going. No clonus. Extremities are warm and well perfused. Sensation is intact. Negative SLR On Seals forward bending test there is no rib prominence. Waist symmetry is nl. Shoulder symmetry is nl Motor is 5/5 DTR 2+ B symmetric Xray: L5 spondylolysis Gap in pars from long standing injury Risser 5 Impression: L5 spondylolysis Plan: Discussed operative management, but patient states she would prefer conservative management at thistime. Discussed pars repair. Also discussed issues with fusion. Will pursue another round of PT for core cybertech 1000 for heavy pain Would like to see volume rendering CT to fully assess the pars size (gap) for potential repair if pain worsens. Artemio Chandler MD [facility] History of Present illness Narrative* Indira Deleon MD - 11/08/2023 8:15 AM EDT Lul Santiago 11/08/2025 18 y.o. Primary Care Physician: Nidia Zhao Chief Complaint Patient presents with Annual Exam She says she would like tested for STDs. She says a few weeks ago she was having some abnormal disharge and itchiness. She says she had an U/S done at [facility] which showed a R ovarian cyst. HPI : Lul Santiago is a 18 y.o. female here for annual exam. Would like sti testing Had US at [facility]- 3cm simple r ovarian cyst H/o pelvic pain- suspects endo and IC, saw urology, doesn't want cystoscopy yet Gynecologic History: Patient's last menstrual period was 10/17/2023 (exact date). Menses: regular Dysmenorrhea: yes, improved with nuvaring Sexually Active: yes STD History: no Contraception: NuvaRing vaginal inserts Preventative Health Testing: Last Pap Smear: n/a Abnormal Pap Smear History: n/a Family history of breast, ovarian, uterine, colon cancer: no OB History Para Term AB Living 0 0 0 0 0 0 SAB IAB Ectopic Multiple Live Births 0 0 0 0 0 Past Medical History: Diagnosis Date Allergic Allergic rhinitis Anxiety Asthma Fracture lumbar vertebra-closed (HCC) Fracture of distal phalanx of finger, closed Pinky finger Fracture of lower leg, closed x2 Interstitial cystitis Migraine Vitamin D deficiency Past Surgical History: Procedure Laterality Date WISDOM TOOTH EXTRACTION Bilateral Family History Problem Relation Name Age of Onset Kidney cancer Father's Sister Kidney Cancer Cancer Father's Sister Kidney Cancer High Blood Pressure Paternal Grandmother Heart disease Paternal Grandmother Anesthesia problems Mother Nausea Social History Socioeconomic History Marital status: Single Spouse name: Not on file Number of children: Not on file Years of education: Not on file Highest education level: Not on file Occupational History Not on file Tobacco Use Smoking status: Never Smokeless tobacco: Never Substance and Sexual Activity Alcohol use: No Drug use: No Sexual activity: Yes Partners: Male control/protection: Ring, Other Comment: Condom Other Topics Concern Not on file Social History Narrative Not on file Social Determinants of Health Financial Resource Strain: Not on file Food Insecurity: Not on file Transportation Needs: Not on file Physical Activity: Not on file Stress: Not on file Social Connections: Not on file Intimate Partner Violence: Not on file Housing Stability: Not on file MEDICATIONS: Current Outpatient Medications Medication Sig Dispense Refill albuterol 108 (90 Base) MCG/ACT inhaler inhale 1 to 2 puffs by mouth and INTO THE LUNGS every 6 hours if ... (REFER TO PRESCRIPTION NOTES). lidocaine (Xylocaine) 5 % ointment Apply to just outside vaginal opening at bedtime x 6 weeks 30 g 0 naproxen (Naprosyn) 500 MG tablet Take 500 mg by mouth in the morning and 500 mg in the evening. Take with meals. tiZANidine (Zanaflex) 2 MG tablet Take 1 tablet by mouth as needed. amitriptyline (Elavil) 50 MG tablet Take 50 mg by mouth Nightly. etonogestrel-ethinyl estradiol (EnilloRing) 0.12-0.015 MG/24HR vaginal ring Insert vaginally and leave in place for 3 consecutive weeks, then remove for 1 week. 3 Ring 4 famotidine (Pepcid) 40 MG tablet Take 1 tablet by mouth as needed. montelukast (Singulair) 10 MG tablet Take 10 mg by mouth Daily as needed. No current facility-administered medications for this visit. ALLERGIES: Allergies as of 11/08/2023 - Reviewed 11/08/2023 Allergen Reaction Noted Pcn [penicillins] 01/03/2023 REVIEW OF SYSTEMS: CONSTIUTIONAL: No weight change or fatigue CV: No Chest Pain with Exertion, Palpitations, Syncope, Edema, Arrhythmia RESPIRATORY: No SOB or Cough, BREAST: No breast abnormalities or lumps GI: No Indigestion, Heartburn, Nausea, vomiting, Diarrhea, Constipation,Bloating or Bowel Changes; No Bloody Stools or melena : No Dysuria, Hematuria or Nocturia. No Urinary Incontinence or Vaginal Discharge,vaginal bleeding, or dysparuenia. NEURO: No Migraines,, Seizure Hx, or Limb Weakness DERM: No Rash, Itching, Mole Changes or Cancer PSYCH: No Depression, Homicidal thoughts,suicidal thoughts, or anxiety MUSCULOSKELETAL: No Arthralgia or Arthritis HEME and LYMPH :No Lymphoma, Von Willebrand's, Hemophillia or Bleeding History PHYSICAL EXAM: Vitals: 11/08/23 0822 BP: 126/75 Pulse: 90 Weight: 112 lb (50.8 kg) Height: 5' 3" (1.6 m) Body mass index is 19.84 kg/m . 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 EXTERNAL GENITALIA: normal female structures VAGINA: normal ruggae, no lesions CERVIX: no lesions, no cervical motion tenderness, normal appearance. UTERUS: normal mobility, nontender, normal size, shape and consistency. ADNEXA: normal, non tender no masses. URETHRA: normal. nontender BLADDER: non tender. PELVIC SUPPORT DEFECTS: Normal support of vagina, uterus, and bladder ANUS/PERINEUM: no hemorrhoids, masses or warts noted. GENERAL EXAM CONSTITUTIONAL: Well developed, well nourished, well groomed. no acute distress NECK: no thyromegaly, supple. CARDIOVASCULAR: normal rate and rhythm, no edema LUNGS: Normal effort, normal lung sounds ABDOMEN: soft, non-tender, non-distended, no hepatospleenomegaly NEUROLOGICAL: no gross motor or sensory deficits noted. . MUSCULOSKETAL: normal gait, no cyanosis. PSYCHIATRIC Normal mood and affect, A&O x3. ASSESSMENT/PLAN: Lul was seen today for annual exam. Diagnoses and all orders for this visit: Well woman exam with routine gynecological exam (Primary) Screen for STD (sexually transmitted disease) - Sureswab(R) Advanced Vaginitis Plus, TMA ([facility]) Cyst of right ovary - US pelvis transvaginal; Future Other orders - etonogestrel-ethinyl estradiol (EnilloRing) 0.12-0.015 MG/24HR vaginal ring; Insert vaginally andleave in place for 3 consecutive weeks, then remove for 1 week. Follow up in about 1 year (around 11/07/2024) for annual, and in 4-6 weeks for US to reeval cyst if pain doesn't resolve. control and barrier recommendations discussed. STD counseling and prevention reviewed. Gardisil counseling completed for all patients 9-45 yo. Routine health maintenance per patients PCP. documented in this encounterSOhioHealth Hardin Memorial HospitalRbswrb02-79-1761 Telephone encounter Note* Telephone Encounter - Vishal Anthony - 10/28/2023 10:18 AM EDT We have been unable to reach your patient to schedule their testing. Test Name: US retroperitoneum 1st attempt, via Tsukulink message, 10/22/23 JS 2nd attempt//left vm//TE to office// 10.28.23 K[facility]K [facility] [id number] Miscellaneous Notes* Telephone Encounter - Vishal Anthony - 10/28/2023 10:18 AM EDT We have been unable to reach your patient to schedule their testing. Test Name: US retroperitoneum 1st attempt, via Tsukulink message, 10/22/23 JS 2nd attempt//left vm//TE to office// 10.28.23 KGK documented in this [facility]05-18-2024 Telephone encounter Note* Telephone Encounter - Jasmyne Huynh - 10/21/2023 10:24 PM EDT We have been unable to reach your patient to schedule their testing. Test Name: Physical Therapy 1st Attempt: 09.25.23 2nd Attempt: 10.21.23 [facility] [id number] Miscellaneous Notes* Telephone Encounter - Jasmyne Huynh - 10/21/2023 10:24 PM EDT We have been unable to reach your patient to schedule their testing. Test Name: Physical Therapy 1st Attempt: 09.25.22 2nd Attempt: 10.21.23 documented in this [facility]04-09-2024 Telephone encounter Note* Telephone Encounter - Alexandra Simeon RN - 09/12/2023 10:45 AM EDT Pt called asking for results of US and what it means . Reviewed report . Advised that cystoscopy iswarranted to complete hematuria work up . Pt is is asking to cancel appointment at this time pt states she will reschedule at a later date . Strongly urged patient to keep appointment . Appointment cancelled [place] [id number] Miscellaneous Notes* Telephone Encounter - Alexandra Simeon RN - 09/12/2023 10:45 AM EDT Pt called asking for results of US and what it means . Reviewed report . Advised that cystoscopy iswarranted to complete hematuria work up . Pt is is asking to cancel appointment at this time pt states she will reschedule at a later date . Strongly urged patient to keep appointment . Appointment cancelled * Telephone Encounter - Beth Shrestha MA - 09/06/2023 2:43 PM EDT Called Pt left detailed VM regarding appt for office cysto d/t/l. Instructed Pt that at that time Dr. Retana will better be able to explain urinalysis results. * Telephone Encounter - Allen Kennedy - 09/06/2023 12:58 PM EDT Name of caller: Stephen Contact phone number: [phone] Relationship to Patient: patient Provider: Luna Alan Practice: Urology Chief Complaint/Reason for Call: Patient calling and states she knows her results were normal but there was blood found in her urine. Patient would like to know what erica means then? Please advise. Best time of day caller can be reached: any Patient advised that office/PCP has 24-48 business hours to return their call: no documented in this encounterSOhioHealth Hardin Memorial [id number] Telephone encounter Note* Telephone Encounter - Beth Shrestha MA - 09/06/2023 2:43 PM EDT Called Pt left detailed VM regarding appt for office cysto d/t/l. Instructed Pt that at that time Dr. Retana will better be able to explain urinalysis results. [facility] [id number] Miscellaneous Notes* Telephone Encounter - Beth Shrestha MA - 09/06/2023 2:43 PM EDT Called Pt left detailed VM regarding appt for office cysto d/t/l. Instructed Pt that at that time Dr. Retana will better be able to explain urinalysis results. * Telephone Encounter - Allen Kennedy - 09/06/2023 12:58 PM EDT Name of caller: Stephen Contact phone number: [phone] Relationship to Patient: patient Provider: Luna Alan Practice: Urology Chief Complaint/Reason for Call: Patient calling and states she knows her results were normal but there was blood found in her urine. Patient would like to know what erica means then? Please advise. Best time of day caller can be reached: any Patient advised that office/PCP has 24-48 business hours to return their call: no documented in this [facility]04-03-2024 Telephone encounter Note* Telephone Encounter - Allen Kennedy - 09/06/2023 12:58 PM EDT Name of caller: Stephen Contact phone number: [phone] Relationship to Patient: patient Provider: Luna Alan Practice: Urology Chief Complaint/Reason for Call: Patient calling and states she knows her results were normal but there was blood found in her urine. Patient would like to know what erica means then? Please advise. Best time of day caller can be reached: any Patient advised that office/PCP has 24-48 business hours to return their call: no [facility] [id number] History of Present illness Narrative* Luna Alan, 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 - 08/14/2023 3:00 PM EDT Images from the original note were not included. Luna Alan, JULES - BILINGUAL MANAGER 08/14/2023 at 3:49 PM Urology Office Visit [facility] [address], [address] [facility] [id number] PATIENT NAME: Lul Santiago DATE OF : 2005 TODAY'S DATE: 08/14/2023 Chief Complaint: Chief Complaint Patient presents with Difficulty Urinating Dx with IC with PCP, intermitted frequency, burning, lower abdominal pain with IC flare up History of Present Illness: Patient status: New patient Referred by PCP Ms. Santiago is a 18 y.o. female who presents with dysuria. Patient states that this problem has been ongoing for years. Symptoms of UTI without positive cultures Patient has a PMH of vulvodynia. Dx with IC by PCP as dx of exclusion. Has not tried PFPT due to cost and schedule. Currently on Amitriptyline 50 mg. History of recurrent UTIs: Symptoms but no positives History of kidney stones: Denies Flank pain: Denies Suprapubic pain: Reports with flares Voids q 3-4 hrs. Nocturia x 0. Urgency: Denies Frequency: With flare Feeling of incomplete emptying: Denies Hematuria: Denies Stream is fine. Review of Systems: All pertinent positives and negatives per HPI as stated above. Past Medical History: Past Medical History: Diagnosis Date Allergic Allergic rhinitis Anxiety Asthma Fracture lumbar vertebra-closed (HCC) Fracture of distal phalanx of finger, closed Pinky finger Fracture of lower leg, closed x2 Interstitial cystitis Migraine Vitamin D deficiency Past Surgical History: Past Surgical History: Procedure Laterality Date WISDOM TOOTH EXTRACTION Bilateral Current Medications: Prior to Admission medications Medication Sig Start Date End Date Taking? Authorizing Provider albuterol 108 (90 Base) MCG/ACT inhaler inhale 1 to 2 puffs by mouth and INTO THE LUNGS every 6 hours if ... (REFER TO PRESCRIPTION NOTES). 05/12/22 Historical Provider, amitriptyline (Elavil) 50 MG tablet Take 50 mg by mouth Nightly. 04/25/22 Historical Provider, estradiol, bulk, powder Estradiol 0.01% and testosterone 0.1% in methylcellulose base. Apply pea size amount to vestibule BID x 12 weeks 09/06/22 Oscar Ramos MD etonogestrel-ethinyl estradiol (NuvaRing) 0.12-0.015 MG/24HR vaginal ring Insert 1 Ring into the vagina See administration instructions. Insert vaginally and leave in place for 3 consecutive weeks, then remove for 1 week. 09/09/22 CODI Braswell famotidine (Pepcid) 40 MG tablet Take 1 tablet by mouth as needed. 01/15/22 Historical Provider, levonorgestrel-ethinyl estradiol (Aviane, Alesse, Lessina) 0.1-20 MG-MCG tablet Take 1 tablet by mouth in the morning. 07/01/22 CODI Braswell lidocaine (Xylocaine) 5 % ointment Apply to just outside vaginal opening at bedtime x 6 weeks 01/03/23 Oscar Ramos MD montelukast (Singulair) 10 MG tablet Take 10 mg by mouth Daily as needed. 01/08/22 Historical Provider, tiZANidine (Zanaflex) 2 MG tablet Take 1 tablet by mouth as needed. 05/31/22 Historical Provider, Allergies: Pcn [penicillins] Social History: Social History Socioeconomic History Marital status: Single Spouse name: Not on file Number of children: Not on file Years of education: Not on file Highest education level: Not on file Occupational History Not on file Tobacco Use Smoking status: Never Smokeless tobacco: Never Substance and Sexual Activity Alcohol use: No Drug use: No Sexual activity: Yes Partners: Male control/protection: Ring, Other Comment: Condom Other Topics Concern Not on file Social History Narrative Not on file Social Determinants of Health Financial Resource Strain: Not on file Food Insecurity: Not on file Transportation Needs: Not on file Physical Activity: Not on file Stress: Not on file Social Connections: Not on file Intimate Partner Violence: Not on file Housing Stability: Not on file Family History: Family History Problem Relation Name Age of Onset Kidney cancer Father's Sister Kidney Cancer Cancer Father's Sister Kidney Cancer High Blood Pressure Paternal Grandmother Heart disease Paternal Grandmother Anesthesia problems Mother Nausea Vitals: BP 125/70 Pulse 86 Ht 5' 3" (1.6 m) Wt 112 lb (50.8 kg) BMI 19.84 kg/m Physical Exam Vitals and nursing note reviewed. Constitutional: Appearance: Normal appearance. Abdominal: General: There is no distension. Tenderness: There is no right CVA tenderness or left CVA tenderness. Skin: General: Skin is warm and dry. Neurological: Mental Status: She is alert. Psychiatric: Mood and Affect: Mood normal. Behavior: Behavior normal. Data: Lab Results Component Value Date GLUCOSEUR Negative 08/14/2023 BILIRUBINUR Negative 08/14/2023 KETONESU Positive (A) 08/14/2023 SPECGRAV >1.030 08/14/2023 RBCUR Moderate 08/14/2023 PHUR 6.0 08/14/2023 PROTUR Negative 08/14/2023 UROBILINOGEN 0.2 08/14/2023 LEUKOCYTESUR Trace 08/14/2023 NITRITE Negative 08/14/2023 Radiology Review: No recent imaging to review Procedure: N/A Impression/Plan Diagnoses and all orders for this visit: Dysuria - Urine culture - Complete Urinalysis - AMB POC URINALYSIS DIP STICK AUTO W/O MICRO - [facility] [employer] [place]; Future - US retroperitoneum; Future Pelvic floor dysfunction - US retroperitoneum; Future Interstitial cystitis - US retroperitoneum; Future Microhematuria Addressed Dysuria, Pelvic floor dysfunction, IC: Patient presents today with c/o dysuria. POCT positive for moderate blood, and trace leukocytes. Plan to send urine for culture and microscopy. Call with results. Hx of dx of IC from PCP. Has flare ups of UTI symptoms without positive culture. Currently takes Amitriptyline, managed by PCP. Does not seem to help. Discussed dietary modification as recommended as first line treatment for IC/BPS in the AUA guideline. Discussed that common food and beverages that can worsen symptoms include but not limited to: coffee, tea, soda, alcoholic beverages, citrus fruits and juices, artificial sweeteners and hot peppers. Patient states she has made these behavioral changes. Discussed the option for pelvic floor myofascial physical therapy and be evaluated by specially trained pelvic floor physical therapists. Patient willing to try but has concerns with cost and coverage. Referral placed if she would like to pursue. Discussed treatment with intravesical instillations including DMSO, heparin, and/or lidocaine. Discussed treatment with procedure including cystoscopy with hydrodistention, Botox, and/or neuromodulation. Plan for retroperitoneal US. Call with results. Plan for office cystoscopy, preferably with female physician. Follow-up for office cystoscopy. All patient questions answered. Patient voiced understanding. Patient agreed with treatment plan. Follow Up Follow up for Cystoscopy. --Luna KAMINSKI on 08/14/2023 at 3:49 PM An electronic signature was used to authenticate this note. documented in this [facility]02-20-2024 Telephone encounter Note* Telephone Encounter - Sera Tate - 07/25/2023 2:12 PM EST Pt called in stating she was referred by her PCP. Referral in chart. 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 [employer] packet sent to pt. [facility] [id number] Miscellaneous Notes* Telephone Encounter - Sera Tate - 07/25/2023 2:12 PM EST Pt called in stating she was referred by her PCP. Referral in chart. 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 [employer] packet sent to pt. * Telephone Encounter - Stephany Denton - 05/04/2023 3:45 PM EST Called pt to sched new referral appt for dysuria. Went straight to vmail. LM to call back and schedappt. Referral in chart/PCP records in media documented in this [facility]11-30-2023 Telephone encounter Note* Telephone Encounter - Stephany Denton - 05/04/2023 3:45 PM EST Called pt to sched new referral appt for dysuria. Went straight to vmail. LM to call back and schedappt. Referral in chart/PCP records in media [facility] [id number] History of Present illness Narrative* Oscar Ramos MD - 01/03/2023 10:45 AM EDT CC: Chief Complaint Patient presents with Follow-up Follow up vulvodynia; was unable to do PFPT; still having pain HPI: 17 y.o. 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 Started 6 years from menarche ?OCP related, started at age 14 Last visit she was started on E/T cream and changed to non oral contraception. She stopped the Estradiol and Testerone cream in November due to it not helping. Used x 2 months Lidocaine gel PRN (about 1 time a week), it helps. She have not been sexually active. Has not been able to go to Pelvic floor PT d/t starting a new job. She has purchased dilators and has been doing these at home History: 06/21/22: Exam mild erythema at 10, 5, & 7. Q-tip with allodynia severe at 7, mild at 5 & 10+ Pelvic floor muscles TTP and hypertonicity present. Wet mount normal. PLAN lidocaine at bedtime x6 weeks. Referral to pelvic floor PT 09/2022: lidocaine without relief. No pelvic floor PT. EXAM: severe allodynia at 7, mild at 5 & 10. Pelvic floor TTP and bulky. PLAN E/T cream. Pelvic floor PT PMH has a past medical history of Allergic, Allergic rhinitis, Anxiety, Asthma, Fracture lumbar vertebra-closed (HCC), Fracture of distal phalanx of finger, closed, Fracture of lower leg, closed, Migraine, and Vitamin D deficiency. O: Vitals: 01/03/23 1108 BP: 120/81 BP Location: Right arm Patient Position: Sitting BP Cuff Size: Adult Pulse: 74 Weight: 121 lb (54.9 kg) Height: 5' 3" (1.6 m) GEN: well nourished, no acute distress RESP: normal effort [employer]: EXTERNAL: Groin: normal skin color and texture Mons pubis:normal skin color and texture Anterior commissure: normal skin color and texture Labia majora: no lesions, color changes, normal texture Interlabial folds: normal skin color and texture. Normal anatomy Labia minora: normal skin color and texture. Normal architecture bilaterally Prepuce: normal and mobile Clitoris: visible Vestibule: normal skin color and texture Urethral meatus: normal Perineum: normal skin color and texture Glands: normal Anus: no masses or external hemorrhoids Q-tip mild allodynia at 5,7,9 Pelvic floor muscles with hypertonicity and bulkiness. High resting tone PSYCH: A&O x 3, normal mood and behavior ASSESSMENT/PLAN Lul was seen today for follow-up. Diagnoses and all orders for this visit: Vulvodynia (Primary) - lidocaine (Xylocaine) 5 % ointment; Apply to just outside vaginal opening at bedtime x 6 weeks Q-tip testing has improved, ok with another trial of E/T cream, she does have some at home Would like to try another 6 weeks of nightly lidocaine Continue NR but continues to have menstrual pain, she will see her primary [employer] Dr. Edmondson Pelvic floor dysfunction - encourage pelvic floor PT but at this time not possible d/t work - Blanquita Hartment exercises and dilator instructions given to patient. Dyspareunia in female Follow up in about 4 months (around 05/05/2023) for Recheck. documented in this [place] [address]-01-2023 Instructions* Patient Instructions* Oscar Ramos MD - 01/03/2023 10:45 AM EDT These activities are meant to help decrease tension, reduce anxiety, and help you begin to regain control of your body. They are not a substitute for physical therapy. These activities can use be used twice daily ( especially exercise number 5) and before and after anything goes inside the vagina. The deep breathing techniques can be quite helpful in the morning to help calm the tension in your belly and in your pelvis. All are preformed while laying down BREATHE Breathe- deep diaphragmatic breathing With your hands on each side of your lower ribcage, take a deep breath and feel your ribs go out tothe sides as you breath in. Bring your air all the way down to your hands. Don't let your breath go into your upper ribcage or your abdomen. Only your ribs should move- not your chest or belly As you breath deeply, you begin to relax, encouraging the muscles inside to let go. Feel the breathall way down to your pelvis as the muscles relax as you breath in. Breathe in and hold for a count of 5 then breathe all the air out. Repeat 5 times. STRETCH Stretch your lower abdomen Put both hands in the middle of your stomach, just below your belly button With both hands, scoop in and up on your belly, like you are trying to pull your belly button up and out. It should not hurt! As you stretch, you are reaching all the way down into your pelvis, encouraging the urethra (carried the urine out), the bladder ( holds the urine) and the pelvic floor muscles to relax Scoop and hold for a count of 10. Repeat 3 times. Stretch both hips Pull your right knee up toward your left shoulder. Hold it there for a count of 20. Repeat with your left knee to your right shoulder and hold for a count of 20. As your do this, you stretch hip muscles that lie very close to the muscles on the inside of the pelvis. The stretching encourages all the muscles to relax. MOBILIZE Active bridging Pull both knees up toward the ceiling, putting your feet on the bed, with knees apart Squeeze your buttocks and lift your body up toward the ceiling, making a straight line from your knees to your shoulders As you lift, you tighten muscles on the backside. When you go down, those muscles relax. The muscles inside the pelvis will be encouraged to do the same. Lift and hold for a count of 10. Repeat 3-4 times. Active pelvic floor muscle contract and relax Squeeze and hold on the inside of your pelvis like you are trying to hold back urine or gas and then let go, all the way. You should feel both the squeeze and the letting go. Do this several times tofeel the movement. Once you can feel the squeeze and release, squeeze and hold for a count of 5. Let go all the way and feel the inside relax. Then, do 5 small squeeze, almost like climbing a ladder- a little at a time. Let go and feel the inside relax like before. Repeat each ( holding for a count of 5, letting go then squeezing 5 times and letting go) 3 times, feeling the muscles inside begin to relax more each time you let go If you are having trouble doing this or are having pain, go back and repeat the other activities before trying again. Work up to doing this twice a day for 5 minutes Exercises and script from Blanquita Luzma, PT, DPT Vaginal Dilators What is a vaginal dilator? Dilators are used by some women to slowly stretch the vaginal tissue and help with vaginal muscle relaxation. Dilators come in several sizes and are made of plastic or silicone. You need to use a lubricant with your dilator. Some women find slow, progressive vaginal dilation a helpful way to return to intercourse HOW TO USE VAGINAL DILATORS At times, the use of vaginal dilators for your vulvar condition may be recommended by your medical team. The following is a discussion on the use of vaginal dilators. Pain with sexual activity can cause some reflexive tension in pelvic muscles. Anticipating that an activity may be painful can cause muscles to tense voluntarily or involuntarily, as a way to be self-protective. This tension is called vaginismus. Sometimes a woman can benefit from learning how to gain voluntary control over the pelvic muscles. Vaginal dilators are smooth cylinders, rounded at the end, which come in various sizes. The dilatoris inserted by you, slowly and gently into the vagina in the privacy of your home - to help stretchand relax the vaginal muscles. The smallest dilator in some kits is about the diameter of a small tampon, while other kits include even smaller dilators. Dilators will be recommended for you in the appropriate size, with discussion about how to use them. These instructions can be used for reference in between clinic visits. You may want to keep this handout with you when you are first using dilators. Getting ready to use dilators. Select a time and place when you can have privacy and will not feel rushed. Many women elect to use their bedroom, and to use dilators while lying down. Plan for about 10 to 20 minutes a day, four to five times a week. If this seems like too often or too long, start with what you feel comfortable with. But do start! We want you to be successful, and this will require repetition and consistency. What you ll need: At first you may benefit from using a hand mirror in order to see the vulva and vaginal opening. Locate the labia and clitoris as well as the opening to your vagina . You willneed the dilator and some lubricant. Lubricant can be purchased in any drug store or online You maywant to use a silicone-based lubricant, as these tend to last longer because they are not absorbed the way water-based lubricants are. In most stores, lubricants are located in the same area as control items and condoms Beginning with dilators. Use a small amount of lubricant on the dilator (you will likely want to begin with the smallest size, and eventually work your way to the largest). Tense and relax the pelvicfloor muscles a few times (See Kegel Exercises later in this section). When you are in the relax phase of the exercise, gently touch the dilator to the opening of the vagina and beginto massage in a circular motion. As you massage the vaginal opening with the dilator, slowly begin to push the dilator in. Be gentle and take your time. At first, you may only be comfortable placing the dilator at the vaginal entrance and doing no more. That is okay! Some women find that a very gradual progression of dilator use works best for them. Challenge yourself, but don t overwhelm yourself. While inserting the dilator, some women find it helpful to use their pelvic muscles to push against the dilator, as if they were attempting to expel it. Notice your breathing. If you are tense and breathing is shallow, stop and attend to the tension before you proceed. Make sureto exhale fully. When you are ready, try inserting the dilator about two inches or so. You may be able to insert the dilator further. The larger dilators do not need to be inserted all the way. In their unaroused state, most women s vaginas are not long enough to accommodate the full length of a large dilator anyway. The pelvic muscles which tend to tense up are about an inch or so inside the vaginal opening, so the goal of this therapy is not how far you caninsert the dilator, but what is happening to the muscles when you insert. If you have pain, stop. Dilator therapy won t be effective if you are in pain. Check with the medical provider who prescribed your dilator therapy. If you are feeling a physical tension, feel free to try and proceed with the dilator as you work on relaxing your mind and body. However,stop if you feel pain. Leave the dilatorin place for 10 minutes to 20 minutes. You may have to hold the dilator in place during this time. Some women will watch TV or read during this time; others will meditate or visualize the dilator relaxing the vaginal muscles. Do what feels comfortable for you. Once timeis up, remove the dilator. Changing dilator sizes. When you can insert a dilator with very little effort or discomfort, it maybe time to move to a larger size. Follow the steps above with the next largest size. At first use your most recent dilator. Then after a few minutes remove this dilator and use the next size up. Thiswill allow you to gradually transition between sizes. Remember, the larger dilator will be more difficult to insert at first, so it may take some time before you can place it into your vagina withoutmuch resistance. The dilating process starts over, only with a larger size, each time you move fromone dilator to the next. Again, stop if you have pain. If you find that the smallest dilator in your set feels too large to begin with, try using the applicator of a gaurav size tampon as a dilator. Care of dilators. Dilators do not need any special treatment. They can be cleaned with soap and water, making sure they are rinsed thoroughly. Let them air dry or pat them dry with a clean towel. KEGEL EXERCISES Kegel exercises can help you gain voluntary control over pelvic muscles. How to figure out which muscles to use during Kegel exercises: when you are urinating, contract your pelvic muscles to start and stop the stream of urine. Those are the muscles you will learn to control better through Kegels. The goal of Kegel exercises is not to tense the muscles, but to learn to relax them. When you are shawn the pelvic muscles, you are tensing them. When you stop the shawn, push slightly, zaire you were attempting to expel urine or a tampon. This is part of the relaxation of the pelvic muscles. Pay particular attention to this relaxation aspect. These exercises should be repeated severaltimes a day, and they can be helpful to strengthen the pelvic floor. Since the pelvic floor musclesare also involved in orgasmic pleasure, you may also be able to enhance orgasm. Try different speeds of Kegel exercises, tensing and relaxing once every second or faster, or try holding for up to 10 seconds and then relaxing for another 10. Where to find Dilators: http://www.vaginismus.com Offers reasonably priced set of 5 hard plastic dilators in graduating sizes with attachable handle for ease of insertion. Http://www.[employer]exx New Zealandromance.com Offers flexible dilator sets in various sizes. http://www.Respectancesurgical.com Milex dilators are flexible, silicone dilators in graduated sizes. http://www.cmtmedical.com [employer] vaginal dilators are medical grade non-latex rigid plastic dilators. Seven graduated sizes are available. Http://www.Replica Labssexmd.VisualOn Adapted from: Disclaimer: This document contains information and/or instructional materials developed by the [facility] ([facility]) for the typical patient with your condition. It may include links to online content that was not created by [facility] and for which [facility] does not assume responsibility. It does not replace medical advice from your health care provider because your experience may differ from that of the typical patient. Talk to your healthcare provider if you have any questions about this document, your condition or your treatment plan. Authors: Pati Greene LMSW, [employer], Nell Perez, [facility] Reviewer: Elen Beckham NP Patient Education by [facility] is licensed under a Creative Commons Mccresgvrna-HflCpwnimbzhc-QcvncFenqy 3.0 Unported License. Last Revised: 12/2014 documented in this [facility]01-27-2023 Telephone encounter Note* Telephone Encounter - CODI Braswell - 07/01/2022 1:41 PM EST Patient called office back. Would like to continue on control after recent testing. New prescription sent to pharmacy. Also needs new referral to PFPT in [place] as the old one ran out. Phonenumber given if they do not reach out in 2 weeks. All questions and concerns answered. Appreciativefor the call back. [facility] [id number] Miscellaneous Notes* Telephone Encounter - CODI Braswell - 07/01/2022 1:41 PM EST Patient called office back. Would like to continue on control after recent testing. New prescription sent to pharmacy. Also needs new referral to PFPT in [place] as the old one ran out. Phonenumber given if they do not reach out in 2 weeks. All questions and concerns answered. Appreciativefor the call back. * Telephone Encounter - CODI Braswell - 07/01/2022 10:22 AM EST LVM for patient to return call. * Telephone Encounter - Ml Monahan - 06/30/2022 11:52 AM EST Would like a return call about control documented in this [facility]SOhio[facility] [id number] Telephone encounter Note* Telephone Encounter - CODI Braswell - 07/01/2022 10:22 AM EST LVM for patient to return call. [facility] [id number] Telephone encounter Note* Telephone Encounter - Ml Monahan - 06/30/2022 11:52 AM EST Would like a return call about control [facility] [id number] History of Present illness Narrative* Oscar Ramos MD - 06/21/2022 8:30 AM EST Lul Santiago 06/21/2024 17 y.o. Chief Complaint Patient presents with New Patient Chronic vaginitis HPI: 17 y.o. here for vaginal discharge, pelvic pain, and dyspareunia . Symptoms started 6 years since menarche Symptoms described as discharge that daily. It can go through her pants. Clear in color. + odor. Thinks it has been getting worse . Pain is in the vagina. Only with penetration and has always been painful. Tampon use and intercourse. Seems to be getting worse. NO pain with wiping. Started OCP's around age 14. Started for dysmenorrhea & menorrhagia. Sister has endometriosis. Not sure if vaginal/vulvar pain was before OCP use or if it started after Prior [employer] hx: Prior diagnosis include none . Prior treatments include vaginal estrogen- vaginally 2-3 times/week. Used it for 2 weeks Prior Biopsy No Prior labs: 03/2022 Fungal culture negative Gram stain normal Vulvar pain yes. Pain > 3 months duration: yes. History of being pain free: no. Occurs spontaneously no. Occurs when provoked:yes. Severity: Moderate- severe Exacerbating factors tampons and intercourse. Does the pain on contact limit or prevent intercourse: yes. Relieving factors NA Vaginal symptoms: Discharge is present. See HPI [employer] History: Menses: monthly Pap smear: NA Prior surgeries: none Prior pregnancies: none Plans for future : not near future Sexual history: Patient is not currently sexually active. Current number of partners 0. She reports dyspareunia. If present, it is located at see hpi *. History of pain free intercourse: no. Uses lubricants No Prior STD: No /GI history: Patient denies urinary incontinence. She denies any problems with bowel movements. Dermatology history: Oral conditions: none Skin conditions: none MS history History of lower back surgery, injury or falls: Yes lumbar spine fracture 2-3 years ago Personal hygiene: Soap: galindo brianna Washcloth/ [place]: none Shaving: yes Wipes: yes- daily and throughout the day Pantyliner: daily d/t discharge Thongs: yes daily Other OTC product: lume deodorant Douching: none Bubble baths: none PMH: Past Medical History: Diagnosis Date Allergic Allergic rhinitis Anxiety Asthma Fracture lumbar vertebra-closed (CMS/HCC) (HCC) Fracture of distal phalanx of finger, closed Pinky finger Fracture of lower leg, closed x2 Migraine Vitamin D deficiency PSH: Past Surgical History: Procedure Laterality Date WISDOM TOOTH EXTRACTION Bilateral MEDICATIONS: Current Outpatient Medications Medication Sig Dispense Refill albuterol 108 (90 Base) MCG/ACT inhaler inhale 1 to 2 puffs by mouth and INTO THE LUNGS every 6 hours if ... (REFER TO PRESCRIPTION NOTES). amitriptyline (Elavil) 50 MG tablet Take 50 mg by mouth Nightly. famotidine (Pepcid) 40 MG tablet Take 1 tablet by mouth as needed. levonorgestrel-ethinyl estradiol (Aviane, Alesse, Lessina) 0.1-20 MG-MCG tablet Take 1 tablet by mouth in the morning. montelukast (Singulair) 10 MG tablet Take 10 mg by mouth Daily as needed. tiZANidine (Zanaflex) 2 MG tablet Take 1 tablet by mouth as needed. lidocaine (Xylocaine) 5 % ointment Apply to just outside vaginal opening at bedtime x 6 weeks 30 g 0 No current facility-administered medications for this visit. PHYSICAL EXAM: Vitals: 06/21/22 0845 BP: 102/64 BP Location: Right arm Patient Position: Sitting BP Cuff Size: Adult Temp: 36.9 C (98.4 F) TempSrc: Temporal Weight: 120 lb 1.6 oz (54.5 kg) Height: 5' 3" (1.6 m) Body mass index is 21.27 kg/m . CONSTITUTIONAL: Well developed, well nourished, well groomed. no acute distress RESPIRATORY: Normal effort SKIN: intact, dry PSYCHIATRIC: Normal mood and affect, A&O x3. 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 Shaved skin Anterior commissure: normal skin color and texture Labia majora: no lesions, color changes, normal texture Interlabial folds: normal skin color and texture. Normal anatomy Labia minora: normal skin color and texture. Normal architecture bilaterally Prepuce: normal and mobile Clitoris: visible Vestibule: mild erythema at 10 oclock, 5 & 7 oclock Urethral meatus: normal Perineum: normal skin color and texture Glands: normal Anus: no masses or external hemorrhoids Q-tip test: Vulva: no pain at 1-2 ( inner thigh) 3-5 (l. Majora), 6-8 (interlabial sulcus, 9 (clitoris), 10 (perineum) Vestibule: + severe allodynia at 7 oclock. Mild at 10 and 5 oclock INTERNAL: Vagina: no erythema, erosions, ulcerations, synechiae Normal Rugae present Yes Discharge white, clear, and mucous like Cervix: no discharge, not friable. + mucous like discharge Uterus: non tender, normal size Adnexa: no masses Bladder: non tender Pelvic floor muscles: hypertonicity Yes. Pain palpation of the pelvic floor muscles Yes . Severe Wet mount: pH normal Clue cells Absent Trichomonas Absent Yeast Absent Parabasal cells Absent Lactobacilli Present Whiff test: negative WBC: Epi > 1:1 ASSESSMENT/PLAN: Lul was seen today for new patient. Diagnoses and all orders for this visit: Vaginal discharge (Primary) - Chlamydia/N.Gonorrhoeae and T. Vaginalis RNA, QL TMA ([facility]) - Mycoplasma/Ureaplasma Panel ([facility]) - discussed limitations with the above testing. Discussed possibly physiologic since started from menarche. Discussed allowing pubic hair to grow and possible changing OCP. Vulvodynia- Primary localized provoked vestibulodynia - lidocaine (Xylocaine) 5 % ointment; Apply to just outside vaginal opening at bedtime x 6 weeks - avoid wipes Pelvic floor dysfunction - referral to pelvic floor PT already placed by Dr. Deleon Discussed vulvar pain generally divided into 2 categories: pain related to specific disorder and pain in the absence of visible findings or an identifiable cause. Reviewed vulvodynia is a chronic vulvar pain without an identifiable cause. Discussed there are no standardized or FDA approved treatments for women with vulvodynia and that typically one or more therapies may need to be tried. Discussed both topical and oral options. Discussed the condition is often managed and not cured and that resolution of symptoms is often slow and gradual . Flares in pain can occur. Often a combination of pharmacologic and physical therapy interventions are needed. Will start with topical lidocaine. She is not sure if pain started before or after OCP use. If no relief with lidocaine, will try a estradiol/testosterone gel. The vulvovaginal disorders patient handout on vulvovaginal pain and pelvic floor function and dysfunction was provided as a reference. Follow up in about 6 weeks (around 08/02/2022) for Recheck. [facility] Diagnosis Vulvodynia- Primary Pelvic floor dysfunction Dyspareunia in female documented in this encounter [facility] note* Diagnosis Dysuria- Primary Pelvic floor dysfunction Interstitial cystitis Chronic interstitial cystitis Microhematuria documented in this encounter [facility] note* Diagnosis control counseling documented in this encounter [facility] note* Diagnosis Well woman exam with routine gynecological exam- Primary Routine gynecological examination Screen for STD (sexually transmitted disease) Screening examination for venereal disease Cyst of right ovary Other and unspecified ovarian cyst documented in this encounter [facility] note* Diagnosis Spondylolysis of lumbosacral region- Primary Acquired spondylolisthesis documented in this encounter [facility] note* Diagnosis Psoriasis vulgaris- Primary Other psoriasis [facility] Diagnosis Vaginal discharge- Primary Leukorrhea, not specified as infective Chronic vaginitis Unspecified vaginitis and vulvovaginitis Vulvodynia Pelvic floor dysfunction documented in this encounter [facility] note* Diagnosis control counseling- Primary Vulvodynia Pelvic floor dysfunction Dyspareunia in female documented in this encounter [facility] note* Diagnosis Mild intermittent asthma with exacerbation (HHS-HCC)- Primary Unspecified asthma, with exacerbation Flu-like symptoms Bronchitis Bronchitis, not specified as acute or chronic documented in this encounter [facility] Work Phone: Evaluation note* Diagnosis Dysuria- Primary Vaginal odor Unspecified symptom associated with female genital organs documented in this encounter [facility] note* Diagnosis 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 documented in this encounter [facility] note* Diagnosis Viral upper respiratory tract infection with cough- Primary Acute upper respiratory infections of unspecified site SOB (shortness of breath) Shortness of breath documented in this encounter [facility] note* Diagnosis Allergic rhinitis, unspecified seasonality, unspecified trigger- Primary Deviated nasal septum Hypertrophy of both inferior nasal turbinates Laryngopharyngeal reflux (LPR) Temporomandibular joint disease Unspecified temporomandibular joint disorders Eustachian tube dysfunction, bilateral [facility]* Diagnosis Psoriasis vulgaris- Primary Other psoriasis [facility] Diagnosis Well woman exam with routine gynecological exam- Primary Routine gynecological examination Cervical cancer screening Screening for malignant neoplasm of the cervix Screening examination for STI Possible exposure to STI [facility]* Diagnosis COVID-19- Primary Acute non-recurrent pansinusitis Congestion of nasal sinus Other diseases of nasal cavity and sinuses Postviral fatigue syndrome Chronic fatigue syndrome Exposure to COVID-19 virus documented in this encounter [facility] Work Phone: Evaluation note* Diagnosis Paronychia of right little finger- Primary documented in this encounter [facility] Work Phone: Evaluation note* Diagnosis Onset Date Resolution Status Admit Date Epigastric pain acute February 21, 2025 1:40pm GERD (gastroesophageal reflu x disease) acute February 21, 2025 1:40pm Irritable bowel syndrome wit h diarrhea acute February 21, 2025 1:40pm [facility] Work Phone: Instructions* Attachments The following attachments cannot be sent through Care Everywhere. * Pelvic Floor Exercises (Thai) * Pelvic Muscle (Kegel) Exercises (Thai) * Bladder Instillation (Thai) [facility] Attachments The following attachments cannot be sent through Care Everywhere. * Cephalexin, ADULT (Thai) [facility]: Reason for referral (narrative)* Consultation (Routine) - Pending Review Specialty Diagnoses / Procedures Referred By Laverne chakraborty Referred To Contact Physical Therapy Diagnoses Vulvodynia Pelvic floor dysfunction Dyspareunia in female Procedures [place] OFFICE/OUTPATIENT [facility] 60-74 MINUTES Ghazal Zambrano PA [address] [place] [address] Elen Mi, PT [address] [place] [address] Referral ID Status Reason Start Date Expiration Date Visits Requested Visits Authorized [id number] Pending Review Specialty Services Required 07/01/2022 07/01/2023 99 99 [facility] (narrative)No reason for referral information availableCity [facility] Work Phone: Reason for visit Narrative* Outpatient Procedure (Routine) - Closed Specialty Diagnoses / Procedures Referred By Contac t Referred To Contact Radiology / RADIO MRI [facility] Diagnoses Tremor, unspecified MRI BRAIN W/WO,R25.1,OFFICE CALLING,FAXING ORDER Procedures MRI BRAIN BRAIN STEM W/O W/CONTRAST MATERIAL MRI WWO NEU1 B 300 Pvael Nidia L, DO [address] [place] [address] Radio Mri [facility] [address] [place] [address] Referral ID Status Reason Start Date Expiration Date Visits Re quested Visits Authorized [id number] Closed 05/31/2024 07/15/2024 1 1 [facility] N[facility]* Outpatient Procedure (Routine) - Closed Specialty Diagnoses / Procedures Referred By Contac t Referred To Contact Radiology / RADIO MRI [facility] Diagnoses Other disorders of pituitary gland PITITUARY MASS DR TO FX Procedures MRI ORBIT FACE & NECK W/O & W/CONTRAST MATRL MRI O NEU1 B 300 Mallory Marques MD [address] [place] [address] Phone: tel: fax: [facility] [address] [place] [address] Phone: tel: Referral ID Status Reason Start Date Expiration Date Visits Re quested Visits Authorized [id number] Closed 06/05/2024 06/04/2025 1 1 [facility] Summary Purpose Family History No Family History Records Found Relationship Condition Age at Onset Recorded Date/T ada Not Specified Malignant neoplasm of colon Unknown father Hyperlipidemia Unknown mother Depression Unknown aunt Malignant neoplasm of kidney Unknown Advance Directives No Advanced Directives Records FoundDocuments on File Type Date Recorded 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 Advance Directives and Living Will Power of Records Management Director Reason for Referral Specialty Diagnoses / Procedures Referred By Contamy t Referred To Contact Physical Therapy Diagnoses Dysuria Procedures [place] OFFICE/OUTPATIENT NEW HIGH MDM 60 MINUTES 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, 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, 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 [address] [place] [address] Ach Uymca Pt [address] [place] [address] Referral ID Status Reason Start Date Expiration Date Visits Requested Visits Authorized [id number] Pending Review Eval and Treat 08/14/2023 08/08/2024 99 99 Specialty Diagnoses / Procedures Referred By Contac t Referred To Contact [facility] Diagnoses Spondylolysis of lumbosacral region Procedures CONSULT TO PHYSICAL THERAPY PHYSICAL THERAPY EVALUATION HIGH COMPLEX 45 MINS Artemio Chandler MD [address] [place] [address] [facility] [place] [address] [place] [address] Referral ID Status Reason Start Date Expiration Date Visits Requested Visits Authorized [id number] Pending Review Auto-Generat ed Referral 11/17/2023 11/09/2024 1 1 Chief Complaint and Reason for Visit Chief Complaint Admit Date Epigastric pain/Acid Refllux February 032024 1:40pm Reason for Visit Admit Date Epigastric pain February 21, 2025 1:40pm GERD (gastroesophageal reflux disease) [facility] 2024 1:40pm Irritable bowel syndrome with diarrhea [facility] 2024 1:40pm Additional Source Comments INFORMATION SOURCE (unrecogn ized section and content) DATE CREATED AUTHOR 05/21/2018 [facility] DATE CREATED AUTHOR AUTHOR'S ORGANIZ ATION 05/21/2018 [facility] DATE CREATED AUTHOR AUTHOR'S ORGANIZ ATION 05/24/2018 [facility] DATE CREATED AUTHOR AUTHOR'S ORGANIZ ATION 05/24/2018 [facility] DATE CREATED AUTHOR AUTHOR'S ORGANIZ ATION 12/27/2019 [facility] DATE CREATED AUTHOR AUTHOR'S ORGANIZ ATION 12/11/2020 [facility] DATE CREATED AUTHOR AUTHOR'S ORGANIZ ATION 12/11/2020 [facility] DATE CREATED AUTHOR AUTHOR'S ORGANIZ ATION 06/24/2021 [facility] dical Specialist DATE CREATED AUTHOR AUTHOR'S ORGANIZ ATION 09/07/2024 [facility] DATE CREATED AUTHOR AUTHOR'S ORGANIZ ATION 11/20/2024 [facility] DATE CREATED AUTHOR AUTHOR'S ORGANIZ ATION 12/23/2024 [facility] DATE CREATED AUTHOR AUTHOR'S ORGANIZ ATION 03/27/2025 [facility] Reason for Visit (unrecogniz ed section and content) Reason Comments Follow-up Follow up vulvodynia ; was unable to do PFPT; still having pain Reason Comments Difficulty Urinating Dx with IC with PCP , intermitted frequency, burning, lower abdominal pain with IC flare up Reason Comments Med Refill Reason Onset Date Comments Results 09/06/2023 Reason Comments Annual Exam She says she would l nicolas tested for STDs. She says a few weeks ago she was having some abnormal disharge and itchiness. She says she had an U/S done at [facility] which showed a R ovarian cyst. Reason Onset Date Comments Test Scheduling 10/28/2023 Reason Onset Date Comments Scheduling 10/21/2023 Reason Comments New Pain Reason Comments New Patient Chronic vaginitis Specialty Diagnoses / Procedures Referred By Laverne chakraborty Referred To Contact Obstetrics and Gynecology Diagnoses Chronic vaginitis Procedures [place] OFFICE/OUTPATIENT NEW HIGH MDM 60-74 MINUTES Indira Deleon MD [address] [place] [address] [facility] [address] [place] [address] Referral ID Status Reason Start Date Expiration Date Visits Requested Visits Authorized [id number] Pending Review Specialty Services Required 2 10/11/2022 1 1 Reason Onset Date Comments Returning call 06/30/2022 Reason Comments Flu Symptoms Reason Onset Date Comments Other 07/02/2024 Returning missed call from PCP office Reason Comments Urinary Tract Infection burning, odor - has vaginal smell, started last Reason Comments Sinus Problem Chest congestion, sn eezing, sob started a week ago Reason Comments New Patient New patient for shilpa rgies, stuffy sinus with difficulty breathing at night and can not use sedating antihistamine with work, muffled right hearing with fluid per PCP, TMJ left side jaw and 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, previous lipoma on right side of jaw Specialty Diagnoses / Procedures Referred By Laverne chakraborty Referred To Contact Otolaryngology Diagnoses Allergic rhinitis, unspecified Procedures [facility] Nidia Zhao [address] [place] [address] Phone: tel: fax: [facility] [place] [address] [place] [address] Phone: tel: fax: Referral ID Status Reason Start Date Expiration Date V isits Requested Visits Authorized [id number] Pending Review 08/05/2024 08/05/2025 1 1 Reason Comments Gynecologic Exam Annual exam Reason Comments Headache Congestion, headache , sinus pressure, chills x 4 days Reason Comments Finger Pain Care Teams (unrecognized sec tion and content) 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 Relationship Specialty Start Date End Date Nidia Zhao [address] [place] [address] PCP - General 03/10/22 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 Relationship Specialty Start Date End Date Nidia Zhao DO [address] [place], [place] [id number] PCP - General Family Medicine 06/30/21 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 Relationship Specialty Start Date End Date Nidia Zhao [address] [place] [phone] PCP - General 03/10/22 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 Relationship Specialty Start Date End Date Nidia Zhao [address] [place] [address] PCP - General 03/10/22 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 Relationship Specialty Start Date End Date Nidia Zhao DO [address] [place] [phone] PCP - General Family Medicine 06/30/21 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 Relationship Specialty Start Date [place] [phone] PCP - General 03/10/22 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 Relationship Specialty Start Date End [place] [phone] PCP - General 03/10/22 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 Relationship Specialty Start Date End Date Nidia [place] [phone] PCP - General 03/10/22 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 Relationship Specialty Start Date End Date Nidia Zhao DO Thuy [address] [place] [place], [place] [address] PCP - General Family Medicine 06/30/21 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 Relationship Specialty Start [place] [phone] PCP - General 03/10/22 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 Relationship Specialty Start [place] [phone] PCP - General 03/10/22 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 Relationship Specialty Start Date End Date Cyndie Mcdonough MD [address] [place] [address] Dr [employer] [address] [address] PCP - General 12/10/20 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 Relationship Specialty Start Date End Date Nidia Zhao [address] [place], [place] [id number] PCP - General Family Medicine 06/30/21 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 Relationship Specialty Start Date End Date PavelNidia schwab [address] [place] [phone] PCP - General 03/10/22 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 Relationship Specialty Start Date End Date Nidia Zhao DO [address] [place], [place] [address] PCP - General Family Medicine 06/30/21 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 Relationship Specialty Start Date End Date PavelNidia shcwab [address] [place] [phone] PCP - General 03/10/22 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 Relationship Specialty Start Date End Date Nidia Zhao DO [address] [place], [place] [address] PCP - General Family Medicine 06/30/21 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 Relationship Specialty Start Date End Date Nidia Zhao DO [address] [place] [address] PCP - General Family Medicine 06/30/21 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 Relationship Specialty Start Date End Date PavelNidia schwab [address] [place] [phone] PCP - General 03/10/22 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 Relationship Specialty Start Date End Date PavelSalasNidia [address] [place] [phone] PCP - General 03/10/22 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 [address] [place], [place] [phone] PCP - General 12/10/20 Team Status: Active Member Role/Relationship Status Dates Dr. Nidia Zhao DO Primary care physician A ctive Team Status: Inactive Member Role/Relationship Status Dates CODI Bartlett Attending physician Active Start: February 21, 2025 End: February 21, 2025 Dr. Nidia Zhao DO Primary care physician Active Start: February 21, 2025 End: February 21, 2025 Dr. Nidia Zhao DO Referring Provider Active Start: February End: February 21, 2025 Source Comments (unrecognize d section and content) In the event this informatio n is protected by the Federal Confidentiality of Alcohol and Drug Abuse Patient Records regulations: The Federal rules restrict any use of the information to criminally investigate or prosecute any alcohol or drug abuse patient.[facility] the event this information is protected by the Federal Confidentiality of Alcohol and Drug Abuse Patient Records regulations: The Federal rules restrict any use of the information to criminally investigate or prosecute any alcohol or drug abuse patient.[facility] the event this information is protected by the Federal Confidentiality of Alcohol and Drug Abuse Patient Records regulations: The Federal rules restrict any use of the information to criminally investigate or prosecute any alcohol or drug abuse patient.[facility] Campus[facility] the event this information is protected by the Federal Confidentiality of Alcohol and Drug Abuse Patient Records regulations: The Federal rules restrict any use of the information to criminally investigate or prosecute any alcohol or drug abuse patient.[facility] the event this information is protected by the Federal Confidentiality of Alcohol and Drug Abuse Patient Records regulations: The Federal rules restrict any use of the information to criminally investigate or prosecute any alcohol or drug abuse patient.[facility] Campus[facility] the event this information is protected by the Federal Confidentiality of Alcohol and Drug Abuse Patient Records regulations: The Federal rules restrict any use of the information to criminally investigate or prosecute any alcohol or drug abuse patient.[facility] Campus[facility] the event this information is protected by the Federal Confidentiality of Alcohol and Drug Abuse Patient Records regulations: The Federal rules restrict any use of the information to criminally investigate or prosecute any alcohol or drug abuse patient.[facility] the event this information is protected by the Federal Confidentiality of Alcohol and Drug Abuse Patient Records regulations: The Federal rules restrict any use of the information to criminally investigate or prosecute any alcohol or drug abuse patient.[facility] Goals (unrecognized section and content) Goals may be documented in a n alternate section FOR RECORDS PERTAINING TO PATIENTS WHO ARE OR HAVE BEEN ENROLLED IN A CHEMICAL DEPENDENCY/SUBSTANCEABUSE PROGRAM, SOME INFORMATION MAY BE OMITTED. This clinical summary was aggregated from multiple sources. Caution should be exercised in using it in the provision of clinical care. This summary normalizes information from multiple sources, and as a consequence, information in this document may materially change the coding, format and clinical context of patient data. In addition, data may be omitted in some cases. CLINICAL DECISIONS SHOULD BE BASED ON THE PRIMARY CLINICAL RECORDS. [facility]. provides no warranty or guarantee of the accuracy or completeness of information in this document.
[2025-03-28 06:46] LABS: Internal QC Validated? YES +Cl - CLEAR BKGD; Pregnancy, Urine Negative Negative
[2025-03-28 06:47] LABS: Record Kit Lot#,Urine Preg 0000980607
[2025-03-28] MEDS: Lactated Ringers 1,000 ML 15 ML IV (06:47)
--- NOTE | 2025-03-28 07:00 | EGD_PTH ---
PATIENT: LUL REYNA LOC: EN U#:[id number] AGE/SX: 19/F ROOM: RE03/28/[address]: Dr. Rafael Viveros DO : 2005 BED: DIS: 03/28/2025 SPEC #: [id number] RECD: 03/28/25 10:49 STATUS: JUANC [place] #: [id number] LESLEY: 03/28/25 07:[address]: Rafael Viveros DEPT: SURGICAL PATHOLOGY RECD BY: Myles Marshall ENTERED: 03/28/25 12:22 SP TYPE: EGD BIOPSY AMBROSIO DR: Dr. Nidia Zhao DO Tissues: A - Gastric mucous membrane B - Duodenum, NOS Procedures: Immunohistochemical Stains Surgery Specimen Level IV HEADER OPERATION: EGD with biopsy PRE-OP DIAGNOSIS: Epigastric pain, GERD TISSUE SUBMITTED: A- Gastric body biopsy, B- Duodenum biopsy MICROSCOPIC DIAGNOSIS A. Gastric body, biopsy: - Oxyntic mucosa with features of reactive gastropathy. - IHC negative for H. pylori organisms. B. Duodenum, biopsy: - Normal villous architecture with focal Frank gland hyperplasia. - Negative for increased intraepithelial lymphocytes. MICROSCOPIC DESCRIPTION Slides are reviewed. All matched controls reacted appropriately. These tests were developed and their performance characteristics determined by [facility]. They may not have been cleared or approved by the U.S. Food and Drug Administration. The FDA has determined that such clearance or approval is not necessary. The above immunohistochemical markers and/or special stains have been reviewed by the Pathologist. GROSS DESCRIPTION A. Received in fixative is one container labeled with the patient's name and designated "Gastric body biopsy." The specimen consists of two irregular fragments of shepard tissue that measure 0.5 and 0.6 cm. The specimen is totally submitted in one cassette. B. Received in fixative is one container labeled with the patient's name and designated "Duodenum biopsy." The specimen consists of multiple irregular fragments of shepard tissue that in aggregate measure 0.9 x 0.8 x 0.1 cm. The specimen is totally submitted in one cassette. [place] 03/28/2025 CPT:91283m9,99549
--- NOTE | 2025-03-28 07:06 | PCM.PRE.AN2 ---
ASA Classification* ASA Classification ASA Classification: 2 Assessment & Plan Anesthesia* Anesthesia Assessment Anesthesia Assessment: Discussed sedation and/or anesthesia options, risks, benefits, and alternatives with patient/parents/legal guardian/POA. Questions invited. The patient/parents/legal guardian/POA seems to understand and agrees to proceed with anesthesia plan. Reviewed the physical assessment, medical history, allergy history and patient home medications list prior to surgery/procedure/anesthetic and documented any changes. Performed airway and anesthesia risk assessments. Anesthesia Type Anesthesia Type: MAC History Source History Obtained from:: Patient and Chart Anesthesia Focused Assessment* Temperature: 98 F Pulse Rate: 96 Blood Pressure: 131/87 Respiratory Rate: 16 Pulse Ox: 100 Oxygen Delivery Method: Room Air Airway Assessment Mouth opens: >3 cm Mallampati Score: I Teeth Condition: Intact Neck Range of motion (ROM): Full ROM Labs Anesthesia Preop lab: CBC CHEMISTRY COAG Urine Test Negative Negative Today, 06:21 Pre-Assessment Diagnosis/Proposed Procedure Planned Operative Procedure(s): EGD Anesthesia History Anesthesia History - yarn twister: Anesthesia History - yarn twister Hx Hospitalization No 03/27/25 09:51 Any Problems With Anesthesia No 03/27/25 09:51 Cholinesterase deficiency No 03/27/25 09:51 You/Your Family Experience No 03/27/25 09:51 fever (hyperthermia) with Relationship Recent Exposure to Contagious No 03/28/25 06:37 Disease Does patient have nerve No 03/27/25 09:51 stimulator Patient instructed to have device shut off --Does patient have Pacemaker No 03/28/25 06:37 or ICD? When Was Last Pacemaker Check QUESTION #4 FULL TEXT: You/Your Family Experience fever (hyperthermia) with Anesthesia Last Oral Intake Last Oral intake: Last Oral Intake NPO since 05:15 03/28/25 06:37 Meds taken in AM with sips of water? Meds patient instructed to take am of surgery Any additional information?: Yes Meds taken in AM with sips of water?: Yes PONV PONV - yarn twister: PONV - yarn twister Female Yes 03/27/25 09:51 HX of Motion Sickness Yes 03/27/25 09:51 HX of N/V After Surgery No 03/27/25 09:51 Non-Smoker Yes 03/27/25 09:51 Duration of Surgery greater No 03/27/25 09:51 than 60 minutes Number of Risk Factors 3 03/27/25 09:51 PONV Score Moderate Risk 03/27/25 09:51 Height & Weight Height & Weight: Anesthesia: Height & Weight Height 5 ft 3 in 03/28/25 06:37 Weight: 55.792 kg 03/28/25 06:37 Body Mass Index (BMI) 21.7 03/28/25 06:37 Respiratory Assessment Respiratory Assessment - yarn twister: Respiratory Tract Infection Hx - yarn twister Hx Respiratory Tract Infection No 03/27/25 09:51 STOP Sleep Apnea STOP Sleep Apnea - yarn twister: STOP Sleep Apnea - yarn twister Hx Hypertension No 03/27/25 09:51 Hx Sleep Apnea No 03/27/25 09:51 CPAP BIPAP Do you snore loudly (louder No 03/27/25 09:51 than talking or can be heard Do you often feel tired/ No 03/27/25 09:51 fatigued/ sleepy during daytime? Has anyone observed you stop No 03/27/25 09:51 breathing during sleep? STOP Results Negative 03/27/25 09:51 QUESTION #5 FULL TEXT : Do you snore loudly (louder than talking or can be heard through closed doors)? 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 Specify any problems Hx of Preganancy in last 3 No 03/27/25 09:51 Months Nurse Filling Out Transfusion DSCHRIBER 03/27/25 09:51 & Questions: Date: 03/27/25 03/27/25 09:51 Time: 09:52 03/27/25 09:51 Patient unable to answer at this time (ie. confused, unrespo /Reproduction History /Reproductive History - yarn twister: /Reproductive Hx- yarn twister Hx Now No 03/27/25 09:51 Gestational Age (in weeks): EDC: Hx Hx Para Hx Section SAB No 03/27/25 09:51 Active Medications Active Medications: Current Medications Generic Name Dose Route Start Last Admin Trade Name Freq PRN Reason Stop Dose Admin Lactated Ringer's 1,000 mls @ 15 mls/hr 03/28/25 06:30 03/28/25 06:47 IV 15 mls/hr .Q48H ALIA Administration PFSH Medical History Alcohol use Back pain DDD (degenerative disc disease), cervical Injury of head and neck Asthma Shortness of breath on exertion Anxiety Psoriasis Irritable bowel syndrome (IBS) Abnormal pituitary luteinizing hormone (LH) Migraines GERD (gastroesophageal reflux disease) Epigastric pain Home Medications Medication Instructions Recorded Last Taken Type albuterol sulfate 90 mcg/actuation 2 puff inhalation Q4-6H PRN 02/17/25 Unknown History aerosol inhaler shortness of breath or wheezing dicyclomine 10 mg capsule 10 mg PO TID PRN abdominal pain 02/17/25 Unknown History etonogestrel 0.12 mg-ethinyl 1 vag ring vaginal Q4W 02/17/25 Unknown History estradiol 0.015 mg/24 hr vaginal ring (NuvaRing) risankizumab-rzaa 150 mg/mL 150 mg subcut Q12W 02/17/25 Unknown History subcutaneous pen injector (Sunny) tizanidine 2 mg capsule 2 mg PO Q8H PRN muscle spasticity 02/17/25 Unknown History pantoprazole 40 mg tablet,delayed 40 mg PO QDAY #30 tabs 02/21/25 03/28/25 Rx release Allergy/AdvReac Type Severity Reaction Status Date / Time nirmatrelvir (From Paxlovid) Allergy Intermediate Other Verified 03/28/25 06:37 ritonavir (From Paxlovid) Allergy Intermediate Other Verified 03/28/25 06:37 brompheniramine AdvReac Mild Other Verified 03/28/25 06:37 Penicillins (PCN) AdvReac Mild Abd Verified 03/28/25 06:37 cramps/diarrhea Family History Father Hyperlipidemia Mother Depression Aunt Cancer of kidney Other Colon cancer Surgical History [place] teeth extracted Social History Smoking Status: Never smoker alcohol intake: current details: 1-2 days a week substance use type: does not use what type of physical activity do you participate in: walking Review of Systems (Anesthesia) ROS Narrative System reviewed and no additional complaints, except as documented.
--- NOTE | 2025-03-28 07:25 | PCM.HP.STD ---
[facility] - General General Date of Admission: 03/28/25 Date of Service: 03/28/25 Chief Complaint: Abdominal pain and GERD HPI Narrative LUL REYNA, is a 19 F who presents [ Chief Complaint: GERD Patient with a long history of GERD type symptoms. Patient previously seeing her PCP for management however symptoms have become refractory and she was referred to GI office. In the past she has taken famotidine just as needed but this eventually stopped working. She was then put on omeprazole which she felt made her symptoms worse so she discontinued it. She has heartburn on a consistent basis. She has nausea but does not vomit. She has noticed that greasy and spicy foods can cause worse symptoms. Patient also feels difficulty swallowing with certain food textures like peanut butter. She will have to drink a lot of water to get the food down. She has some intermittent right upper quadrant abdominal pain however she had a right upper quadrant ultrasound which was normal. She has a history of IBS and will have constipation on occasion. At 1 point she was having blood in her stool stool fit test was ordered which was negative. She denies any diarrhea, constipation or blood in her stool at this time. [facility] Medical History Alcohol use Back pain DDD (degenerative disc disease), cervical Injury of head and neck Asthma Shortness of breath on exertion Anxiety Psoriasis Irritable bowel syndrome (IBS) Abnormal pituitary luteinizing hormone (LH) Migraines GERD (gastroesophageal reflux disease) Epigastric pain Home Medications Medication Instructions Recorded Last Taken Type albuterol sulfate 90 mcg/actuation 2 puff inhalation Q4-6H PRN 02/17/25 Unknown History aerosol inhaler shortness of breath or wheezing dicyclomine 10 mg capsule 10 mg PO TID PRN abdominal pain 02/17/25 Unknown History etonogestrel 0.12 mg-ethinyl 1 vag ring vaginal Q4W 02/17/25 Unknown History estradiol 0.015 mg/24 hr vaginal ring (NuvaRing) risankizumab-rzaa 150 mg/mL 150 mg subcut Q12W 02/17/25 Unknown History subcutaneous pen injector (Skyrizi) tizanidine 2 mg capsule 2 mg PO Q8H PRN muscle spasticity 02/17/25 Unknown History pantoprazole 40 mg tablet,delayed 40 mg PO QDAY #30 tabs 02/21/25 03/28/25 Rx release Allergy/AdvReac Type Severity Reaction Status Date / Time nirmatrelvir (From Paxlovid) Allergy Intermediate Other Verified 03/28/25 06:37 ritonavir (From Paxlovid) Allergy Intermediate Other Verified 03/28/25 06:37 brompheniramine AdvReac Mild Other Verified 03/28/25 06:37 Penicillins (PCN) AdvReac Mild Abd Verified 03/28/25 06:37 cramps/diarrhea Family History Father Hyperlipidemia Mother Depression Aunt Cancer of kidney Other Colon cancer Surgical History [place] teeth extracted Social History Smoking Status: Never smoker alcohol intake: current details: 1-2 days a week substance use type: does not use what type of physical activity do you participate in: walking ROS Constitutional Constitutional: Denies fatigue, fever(s), poor appetite, weight gain or weight loss Gastrointestinal Gastrointestinal: Denies belching, bloating, change in bowel habits, change in stool character, chewing difficulty, coffee ground emesis, constipation, cramping, diarrhea, dyspepsia, dysphagia, early satiety, excessive flatus, fecal incontinence, heartburn, hematemesis, hematochezia, hemorrhoids, loose stools, melena, nausea, odynophagia, rectal bleeding, tenesmus, vomiting or weight changes Vital Signs Vital Signs Vital Signs: 03/28/25 06:37 03/28/25 06:37 03/28/25 07:15 Temperature 98 F 98 F Temperature Source Temporal Pulse Rate 96 96 Respiratory Rate 16 16 Respiratory Pattern Normal Blood Pressure 131/87 H 131/87 H Blood Pressure Mean 101 Blood Pressure Source Monitor Blood Pressure Position Semi-Fowlers Blood Pressure Location Right Arm Pulse Ox 100 100 Oxygen Delivery Method Room Air Room Air Weight Weight: 123 lb Body Mass Index (BMI) 21.7 Physical Exam Const alert, oriented x3, no apparent distress and healthy appearing General Appearance: cooperative GI normal to inspection, nondistended, normoactive bowel sounds, soft to palpation, non-tender and non-distended Percussion: normal to percussion Rectal Exam: deferred Results Lab / Micro Data Labs: Laboratory Results - last 24 hr 03/28/25 06:21: Urine Test Negative Assessment & Plan Assessment/Plan (1) Epigastric pain: (2) GERD (gastroesophageal reflux disease): PLAN: Assessment and Plan Assessment and Plan (1) Epigastric pain: Status: Acute Plan: Jensen is a 19-year-old female patient here today for evaluation of GERD. Patient with GERD for many years managed by her PCP. In the past she has taken famotidine however her symptoms became refractory and she was started on omeprazole. Patient found omeprazole worsened her symptoms so she discontinued. She has complaints of heartburn, difficulty swallowing, and regurgitation. I recommended she start pantoprazole 40 mg daily and have an upper endoscopy to assess her upper GI tract. Patient was agreeable to this. She also has a history of IBS with constipation but is not currently experience any symptoms relating to this. I do not feel she requires a colonoscopy at this time as she has no alarm features. If symptoms develop or worsen we may consider colonoscopy in the future. - EGD - Start pantoprazole 40 mg daily - Consider colonoscopy (2) GERD (gastroesophageal reflux disease): Status: Acute (3) Irritable bowel syndrome with diarrhea: Status: Acute Medications: New pantoprazole 40 mg PO QDAY 30 tabs 1RF ]
--- NOTE | 2025-03-28 07:45 | OP.EGD_ITS ---
Patient Name: Keena Santiago Procedure Date: 03/28/2025 7:26 AM Date of : 2005 Age: 19 Procedure: Upper GI endoscopy Indications: Epigastric abdominal pain, Abdominal pain in the right upper quadrant, Abdominal pain in the left upper quadrant, Functional Dyspepsia Providers: Rafael Viveros DO Medicines: Monitored Anesthesia Care Patient Profile: This is a 19 year old female. Refer to note in patient chart for documentation of history and physical. Patient has symptoms of chronic abdominal cramping, chronic abdominal distention, acute right upper quadrant abdominal pain, acute left lower quadrant abdominal pain, chronic epigastric abdominal pain, acute dyspepsia and chronic nausea. Complications: No immediate complications. Procedure: Pre-Anesthesia Assessment: - Prior to the procedure, a History and Physical was performed, and patient medications and allergies were reviewed. The patient is competent. The risks and benefits of the procedure and the sedation options and risks were discussed with the patient. All questions were answered and informed consent was obtained. Patient identification and proposed procedure were verified by the physician in the pre-procedure area. Mental Status Examination: alert and oriented. Airway Examination: normal oropharyngeal airway and neck mobility. Respiratory Examination: clear to auscultation. CV Examination: normal. Prophylactic Antibiotics: The patient does not require prophylactic antibiotics. Prior Anticoagulants: The patient has taken no anticoagulant or antiplatelet agents. ASA Grade Assessment: II - A patient with mild systemic disease. After reviewing the risks and benefits, the patient was deemed in satisfactory condition to undergo the procedure. The anesthesia plan was to use monitored anesthesia care (MAC). Immediately prior to administration of medications, the patient was re-assessed for adequacy to receive sedatives. The heart rate, respiratory rate, oxygen saturations, blood pressure, adequacy of pulmonary ventilation, and response to care were monitored throughout the procedure. The physical status of the patient was re-assessed after the procedure. After obtaining informed consent, the endoscope was passed under direct vision. Throughout the procedure, the patient's blood pressure, pulse, and oxygen saturations were monitored continuously. The Endoscope was introduced through the mouth, and advanced to the fourth part of the duodenum. Small bowel enteroscopy was deemed necessary. The upper GI endoscopy was accomplished without difficulty. The patient tolerated the procedure well. Scope In: 7:37:29 AM Scope Out: 7:40:22 AM Total Procedure Duration Time 0 hours 2 minutes 53 seconds Findings: The examined esophagus was normal. Clear fluid was found in the gastric body and in the gastric antrum. Patchy mildly erythematous mucosa without bleeding was found in the gastric body. Biopsies were taken with a cold forceps for histology. Biopsies were taken with a cold forceps for Helicobacter pylori testing. Verification of patient identification for the specimen was done. Estimated blood loss was minimal. Patchy mildly erythematous mucosa without active bleeding and with no stigmata of bleeding was found in the entire duodenum. Biopsies were taken with a cold forceps for histology. Verification of patient identification for the specimen was done. Estimated blood loss was minimal. Impression: - Normal esophagus. - Clear gastric fluid. - Erythematous mucosa in the gastric body. Biopsied. - Erythematous duodenopathy. Biopsied. Recommendation: - Discharge patient to home. - Resume previous diet. - Continue present medications. - Await pathology results. Procedure Code(s): --- Professional --- 51997, Small intestinal endoscopy, enteroscopy beyond second portion of duodenum, not including ileum; with biopsy, single or multiple CPT copyright 2021 [employer]. All rights reserved. The codes documented in this report are preliminary and upon clipping marker review may be revised to meet current compliance requirements. Rafael Viveros DO 03/28/2025 7:45:33 AM This report has been signed electronically. Number of Addenda: 0 Note Initiated On: 03/28/2025 7:26 AM
--- NOTE | 2025-03-28 07:46 | OP.PROVAT_ITS ---
03/28/2025 Nidia Zhao Do Re : Upper GI endoscopy procedure for Keena Santiago Dear Dr. Zhao This procedure was performed on Friday, March 28, 2025. My impressions and recommendations are as follows: Impressions : - Normal esophagus. - Clear gastric fluid. - Erythematous mucosa in the gastric body. Biopsied. - Erythematous duodenopathy. Biopsied. Recommendations : - Discharge patient to home. - Resume previous diet. - Continue present medications. - Await pathology results. My findings are described in the full procedure note, which is enclosed. If I can be of further assistance, please feel free to contact me at . Sincerely, Rafael Viveros, 03/28/2025 7:45:33 AM This report has been signed electronically.
--- NOTE | 2025-03-28 07:52 | PCM.POST.ANE ---
Anesthesia: Postop Eval I Current Vital Signs Temperature: 97.1 F Pulse Rate: 107 Blood Pressure: 104/65 Respiratory Rate: 16 Pulse Ox: 97 Oxygen Delivery Method: Room Air Assessment Airway patent: Yes Spontaneous unlabored respirations: Yes Mental status: Asleep nausea: No Vomiting: No Anesthesia Complication: No Fluid Hydration Crystalloid volume administer (ml): 400 Total IV fluid infused: 400 Progress Note Anesthesia document: Postop Eval 1 completed: Yes
--- NOTE | 2025-03-28 12:00 | PCM.POSTANE2 ---
Anesthesia Postop Eval I Sum Postop Eval Completion status Anesthesia document: Postop Eval 1 completed: Yes Anesthesia Postop Eval I Summary Anesthesia Postop Eval I Summary: Anesthesia Postop Eval I: Assessment Summary Airway patent Yes 03/28/25 07:53 [email or web address] Spontaneous unlabored Yes 03/28/25 07:53 [email or web address] respirations Mental status Asleep 03/28/25 07:53 [email or web address] nausea No 03/28/25 07:53 [email or web address] Vomiting No 03/28/25 07:53 [email or web address] Anesthesia Postop Eval I: Fluid Summary Crystalloid volume administer 400 03/28/25 07:53 [email or web address] (ml) Colloids volume administered ( ml) Blood Product volume administered (ml) Total IV fluid infused 400 03/28/25 07:53 [email or web address] Anesthesia Postop Eval I: Summary Notes Anesthesia Complication No 03/28/25 07:53 [email or web address] Anesthesia Complication Comment: Post-operative progress note Anesthesia: Postop Eval II Evaluation Mental status: Awake Pain Level: 0 nausea: No Vomiting: No
== END 2025-03-28 08:45 | disposition home or self-care (01) ==
LOC: EN 06:06 → AC 06:07
PROVIDERS: Anesthesiology; PCP Family Medicine; Referring Provider Family Medicine; Visit Provider Internal Medicine Gastroenterology
PROC: 0DJ08ZZ Inspection of Upper Intestinal Tract, Via Natural or Artificial Opening Endoscopic (ICD-10-PCS; CPT 43235; principal; 2025-03-28 06:55)
DX: K21.9 Gastro-esophageal reflux disease without esophagitis (principal); R10.11 Right upper quadrant pain; Z79.899 Other long term (current) drug therapy; K58.0 Irritable bowel syndrome with diarrhea; K31.89 Other diseases of stomach and duodenum
CPT/HCPCS: 44361; 81025; 88305; 88342; J2405